=== PATIENT | female | born 1950 | race Caucasian/White ===

== ENCOUNTER 2018-08-21 10:23 | Outpatient (CLI) | payer MEDICARE ==
--- NOTE | 2018-08-21 12:06 | CT ---
CT arteriogram abdomen with and without IV contrast with 3-D imaging CT arteriogram pelvis with and without IV contrast with 3-D imaging HISTORY: Claudication. Vascular disease. Occlusion. FINDINGS: Mild peripheral interstitial lung disease apparent at the bases. Old left rib fractures. Ga llbladder is surgically absent. 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 In the right posterior pelvis, associated with the right adnexa is a well-circumscribed oval fluid density mass measuring up to 4.9 cm x 4.0 cm on the axial images. Visceral arteries of the abdomen are patent. Prominent arterial calcification begins at the lower abd ominal aorta. No evidence of aneurysmal dilatation. A small contrast filled ulceration protrudes into the left side of the mural thrombus at the distal abdominal aorta just below the origin of the i nferior mesenteric artery. Right: Prominent calcification. Flow within the stent is patent.. Complete occlusion of the internal iliac artery. Multifocal stenosis of up to 70% involving the external iliac artery. Long segment high grade stenosis of the external iliac artery. Occlusion of the proximal aspect of the femoral art celia with collateralization via the deep femoral branches. At the level of the distal thigh, the femoral artery has not reconstituted. Left: Prominent calcification with less than 50% stenosis of the common iliac artery. Stent in place. High-grade stenosis along the course of the internal iliac artery. Calcification with less than 50% stenosis of the external iliac and common femoral arteries. Arterial stents along the course of t he proximal femoral artery that is patent. IMPRESSION: Atherosclerosis with small ulceration into the left distal aortic mural thrombus. No evid ence of aneurysmal dilatation. Severe disease of the right iliac/femoral system as detailed above. Right adnexal cyst. Please consider gynecologic evaluation. Incidental-type findings as detailed above.
== END 2018-08-21 10:24 | disposition home or self-care (01) ==
LOC: SCSCT 10:23
PROVIDERS: ATTEND Thoracic Surgery (Cardiothoracic Vascular Surgery)
DX: I65.23 Occlusion and stenosis of bilateral carotid arteries (principal); I74.09 Other arterial embolism and thrombosis of abdominal aorta; I74.5 Embolism and thrombosis of iliac artery; I77.1 Stricture of artery; I70.0 Atherosclerosis of aorta; I74.3 Embolism and thrombosis of arteries of the lower extremities; N83.8 Other noninflammatory disorders of ovary, fallopian tube and broad ligament
CPT/HCPCS: 74174; 82565

== ENCOUNTER 2020-03-13 20:59 | Inpatient (IN) | payer MEDICARE ==
[2020-03-13] MEDS ORDERED: Dexamethasone 10 MG/ML VIAL ONE (21:25)
[2020-03-13 21:41] LABS: Actual Bicarbonate (HCO3a) 26.9 mEq/L (22-28); Base Excess (BEa) 2.8 mEq/L (-2.0 to +3.0); CO2 Tension 39.4 mmHg (35.0-45.0); Calcium, Ionized (arterial) 0.97 mmol/L (1.12-1.30); Hemoglobin (Hb) 13.1 g/dL (12.0-16.0); O2 Tension (PaO2), arterial 61.2 mmHg (> 80.0); Potassium - ABG Lab 2.99 mmol/L (3.70-5.30); pH, Arterial 7.45 (7.35-7.45)
[2020-03-13 21:43] LABS: Puncture Site RRA
[2020-03-13] MEDS ORDERED: Enoxaparin Sodium 30 MG/0.3 ML SYRINGE ONE (22:26)
[2020-03-13] MEDS ORDERED: Guaifenesin DM 100-10/5 ML UDCUP PO PRN (23:28)
[2020-03-13] MEDS ORDERED: Calcium Carbonate 500 MG ChewTAB PO PRN (23:28)
[2020-03-13] MEDS ORDERED: Ondansetron PF 4 MG/2 ML Vial IVP PRN (23:28)
[2020-03-13] MEDS ORDERED: Ondansetron ODT 4 MG TAB PO PRN (23:28)
[2020-03-13] MEDS ORDERED: Acetaminophen 650 MG Suppository PR PRN (23:28)
[2020-03-13] MEDS ORDERED: Dextrose 50% Abboject 50 ML SYRINGE SLOW IVP PRN (23:35)
[2020-03-13] MEDS ORDERED: Dextrose 5% in Water 1,000 ML IV PRN (23:35)
--- NOTE | 2020-03-13 23:36 | PDOC.HHP ---
Hospitalist HPI - History of Present Illness resp distress History of Present Illness: Case of an 70y/o female with a pmhx of cad, DM and htn who comes to hospital due to resp distress. The patient was evaluated at one of our outlying ERs and her oxygen saturation was around 30% sand patient was placed BiPAP. The patient has a chest x-ray which was consistent with Covid and a positive Covid swab. The patient refers was exposed to Covid on the , began having symptoms on . She was recently seen in the ER on March 10 and had a left- sided rib fracture which was unsure if it was new or old but she did have a fall that day. patient complains of myalgias fever chills and cough Hospitalist ROS - Review of Systems All other systems reviewed; all pertinent +/- noted in HPI/Subj Hospitalist History - Past Surgical History Past Surgical History: reports: Cholecystectomy, CABG, Hysterectomy - Family History Family History: reports: no pertinent history - Social History Smoking Status: Current some day smoker Alcohol: reports: None Drugs: reports: none Living Situation: With Family - Exam General Appearance: NAD, awake alert Eye: PERRL, anicteric sclera ENT: normocephalic atraumatic, no oropharyngeal lesions Neck: supple, symmetric, no JVD Heart: RRR, no murmur, no gallops Respiratory: tachypneic Respiratory - other findings: decreased lung sounds Gastrointestinal: soft, non-tender, non-distended Extremities: no cyanosis, no clubbing, no edema Skin: normal turgor, no lesions, no rashes Neurological: cranial nerve grossly intact, normal sensation to touch, no weakness Musculoskeletal: normal tone, normal strength, no muscle wasting Psychiatric: normal affect, normal behavior, A&O x 3 Hospitalist Results - Labs Lab results: ABG pH 7.45 (7.35-7.45) 03/13/20 21:38 ABG pCO2 39.4 mmHg (35.0-45.0) 03/13/20 21:38 ABG pO2 61.2 mmHg (> 80.0) 03/13/20 21:38 Lactic Acid 1.9 mmol/L (0.5-2.2) 03/13/20 22:37 Hospitalist H&P A/P - Problem (1) Acute respiratory failure with hypoxia Code(s): J96.01 - ACUTE RESPIRATORY FAILURE WITH HYPOXIA Status: Acute (2) Pneumonia due to COVID-19 virus Code(s): U07.1 - COVID-19; J12.89 - OTHER VIRAL PNEUMONIA Status: Acute (3) EDIE (acute kidney injury) Code(s): N17.9 - ACUTE KIDNEY FAILURE, UNSPECIFIED Status: Acute (4) CAD (coronary artery disease) Code(s): I25.10 - ATHSCL HEART DISEASE OF [place] CORONARY ARTERY W/O ANG PCTRS Status: Acute (5) Diabetes Code(s): E11.9 - TYPE 2 DIABETES MELLITUS WITHOUT COMPLICATIONS Status: Acute (6) HTN (hypertension) Code(s): I10 - ESSENTIAL (PRIMARY) HYPERTENSION Status: Acute - Plan Plan: Case of an 70y/o female with the stated pmxh who presents with acute resp failure secondary to covid 19 pneumonia covid 19 pneumonia - cxr consistent with covid 19 pneumonia - positive test - will start decadron 6mg ivd - vit c d + zinc - 02 supplementation - dvt prophylaxis resp failure hypoxia - likely secondary to above - initailly on bipap, now on high flow - pulmonology consulted edie - acute on chronic - will start ivfs - f/u renal function and u/o cad / htn - contine home meds dm - acc+ss - long acting insulin
[2020-03-14] MEDS: Sodium Chloride 0.9% 1,000 ML IV SCH (01:36)
[2020-03-14 06:27] LABS: ALT (SGPT) 23 U/L (8-55); AST (SGOT) 42 U/L (5-34); Albumin 2.9 g/dL (3.4-4.8); Alkaline Phosphatase 106 U/L (40-110); Anion Gap 18 mmol/L (10-20); BUN (Urea Nitrogen) 32 mg/dL (9.8-20.1); Bilirubin, Total 0.3 mg/dL (0.2-1.2); Calc. Creatinine Clearance 0 mL/min (70-130); Calcium 7.5 mg/dL (7.8-10.44); Carbon Dioxide 29 mmol/L (23-31); Chloride 95 mmol/L (98-107); Globulin 2.9 g/dL (2.4-3.5); Glucose 437 mg/dL (80-115); Potassium 3.8 mmol/L (3.5-5.1); Protein, Total 5.8 g/dL (6.0-8.3); Sodium 138 mmol/L (136-145)
[2020-03-14 06:40] LABS: Hemoglobin 12.7 g/dL (12.0-16.0); Mean Corpuscular HGB CONC 33.2 g/dL (32.0-36.0); Mean Corpuscular Volume 87.3 fL (78.0-98.0); Mean Platelet Volume 8.6 fL (7.4-10.4); Platelet Count 160 thou/uL (130-400); RBC Distribution Width 14.7 % (11.5-14.5); Red Blood Cell (RBC) Count 4.37 mill/uL (4.20-5.40); White Blood Cell (WBC) Count 3.8 thou/uL (4.8-10.8)
[2020-03-14 06:58] LABS: Band 15 % (5-11); Lymphocytes 17 % (21-51); MDiff Complete? YES; Monocytes 4 % (0-10); Neutrophil 64 % (42-75)
[2020-03-14] MEDS ORDERED: Pregabalin 75 MG CAP PO SCH (09:00)
[2020-03-14] MEDS ORDERED: Zinc Sulfate 220 MG CAP PO SCH (09:00)
[2020-03-14] MEDS ORDERED: Clopidogrel Bisulfate 75 MG TAB ONE (10:03)
[2020-03-14] MEDS ORDERED: Metoprolol Tartrate 25 MG TAB ONE (10:03)
[2020-03-14] MEDS ORDERED: Enoxaparin Sodium 40 MG/0.4 ML SYRINGE ONE (10:03)
[2020-03-14] MEDS ORDERED: Dexamethasone 4 mg/ml Vial ONE (10:03)
[2020-03-14] MEDS: Ascorbic Acid 500 mg Chewable Tablet PO SCH (10:10)
[2020-03-14] MEDS: Cholecalciferol (Vitamin D3) 400 UNITS TAB PO SCH (10:10)
[2020-03-14] MEDS: Metoprolol Tartrate 25 MG TAB PO SCH ×2 (10:11→21:31)
[2020-03-14] MEDS: Simvastatin 20 MG TAB PO SCH (10:11)
[2020-03-14] MEDS: Clopidogrel Bisulfate 75 MG TAB PO SCH (10:11)
[2020-03-14] MEDS ORDERED: metFORMIN 500 MG TAB PO SCH ×2 (10:15→17:00)
[2020-03-14] MEDS: Dexamethasone 4 mg/ml Vial SLOW IVP SCH (10:21)
[2020-03-14] MEDS: Enoxaparin Sodium 40 MG/0.4 ML SYRINGE SC SCH (10:21)
[2020-03-14] MEDS: Insulin Glargine 25 UNITS in Pre-Filled Syringe 1 EACH SC SCH ×2 (11:40→21:32)
[2020-03-14] MEDS ORDERED: HumaLOG 300 UNITS/3 ML VIAL ONE (12:47)
[2020-03-14] MEDS: HumaLOG 300 UNITS/3 ML VIAL SC PRN ×2 (13:17→21:31)
--- NOTE | 2020-03-14 14:56 | PDOC.HOSPP ---
- Subjective Encounter Date: 03/14/20 Encounter Time: 14:00 Subjective: is on high flow O2, responds to verbal stimuli, is poor historian no diarrhea per patient but is on the commode now - Objective Result Diagrams: 03/14/20 05:59 03/14/20 05:59 Additional Labs: Accuchecks 03/14/20 03/14/20 03/13/20 12:44 06:23 23:41 POC Glucose 484 H 368 H 381 H Hospitalist ROS - Medication Medications: Active Medications Generic Name Dose Route Start Last Admin Trade Name Freq PRN Reason Stop Dose Admin Ascorbic Acid 1,000 mg 03/14/20 09:00 03/14/20 10:10 Ascorbic Acid 500 Mg Chewable Tablet PO 1,000 mg DAILY SUKHDEEP Administration Cholecalciferol 400 units 03/14/20 09:00 03/14/20 10:10 Cholecalciferol (Vitamin D3) 400 Units Tab PO 400 units DAILY SUKHDEEP Administration Clopidogrel Bisulfate 75 mg 03/14/20 09:00 03/14/20 10:11 Clopidogrel Bisulfate 75 Mg Tab PO 75 mg DAILY SUKHDEEP Administration Dexamethasone 6 mg 03/14/20 09:00 03/14/20 10:21 Dexamethasone 4 Mg/Ml Vial SLOW IVP 6 mg DAILY SUKHDEEP Administration Enoxaparin Sodium 40 mg 03/14/20 09:00 03/14/20 10:21 Enoxaparin Sodium 40 Mg/0.4 Ml Syringe SC 40 mg 0900 SUKHDEEP Administration Sodium Chloride 1,000 mls @ 70 mls/hr 03/13/20 23:30 03/14/20 01:36 Normal Saline 0.9% IV 1,000 mls .[id number] SUKHDEEP Administration Insulin Glargine 25 units/ 0.25 mls @ 0 mls/hr 03/14/20 09:00 03/14/20 11:40 Miscellaneous Medication SC 0.25 mls BID SUKHDEEP Administration Insulin Human Lispro 0 units 03/13/20 23:35 03/14/20 13:17 Humalog 300 Units/3 Ml Vial SC 10 unit .MODERATE SLIDING SC PRN Administration Moderate Correctional Scale Metoprolol Tartrate 25 mg 03/14/20 09:00 03/14/20 10:11 Metoprolol Tartrate 25 Mg Tab PO 25 mg BID SUKHDEEP Administration Pregabalin 150 mg 03/14/20 09:00 03/14/20 10:12 Pregabalin 75 Mg Cap PO 150 mg BID SUKHDEEP Administration Simvastatin 20 mg 03/14/20 09:00 03/14/20 10:11 Simvastatin 20 Mg Tab PO 20 mg DAILY SUKHDEEP Administration Zinc Sulfate 220 mg 03/14/20 09:00 03/14/20 10:11 Zinc Sulfate 220 Mg Cap PO 220 mg DAILY SUKHDEEP Administration - Exam General Appearance: awake alert, ill appearing Eye: PERRL, anicteric sclera ENT: no oropharyngeal lesions, dry oral mucosa Neck: supple, no JVD Heart: RRR, no murmur Respiratory: no wheezes, rales, rhonchi Gastrointestinal: soft, non-tender, non-distended, normal bowel sounds Extremities: no cyanosis, 1+ LE edema Neurological: cranial nerve grossly intact, no focal deficits Hosp A/P (1) Pneumonia due to COVID-19 virus Code(s): U07.1 - COVID-19; J12.89 - OTHER VIRAL PNEUMONIA Status: Acute (2) Acute respiratory failure with hypoxia Code(s): J96.01 - ACUTE RESPIRATORY FAILURE WITH HYPOXIA Status: Acute (3) EDIE (acute kidney injury) Code(s): N17.9 - ACUTE KIDNEY FAILURE, UNSPECIFIED Status: Acute (4) CAD (coronary artery disease) Code(s): I25.10 - ATHSCL HEART DISEASE OF [place] CORONARY ARTERY W/O ANG PCTRS Status: Chronic Qualifiers: Coronary Disease-Associated Artery/Lesion type: bypass graft [place] vs. transplanted heart: [place] heart Associated angina: without angina Qualified Code(s): I25.810 - Atherosclerosis of coronary artery bypass graft(s) without angina pectoris (5) Diabetes Code(s): E11.9 - TYPE 2 DIABETES MELLITUS WITHOUT COMPLICATIONS Status: Chronic Qualifiers: Diabetes mellitus type: type 2 Diabetes mellitus snf insulin use: without longwall headgate operator use (6) HTN (hypertension) Code(s): I10 - ESSENTIAL (PRIMARY) HYPERTENSION Status: Chronic Qualifiers: Hypertension type: essential hypertension Qualified Code(s): I10 - Essential (primary) hypertension (7) Dehydration Code(s): E86.0 - DEHYDRATION Status: Acute - Plan renal function is getting better, will be a candidate for remdesivir if cleared by either or day 6 of symptom onset/diagnosis, is on dexamethasone, high flow O2 continue plavix, zocor, lopressor, lantus, lyrica and protonix prognosis guarded, full code, lives with her .
[2020-03-14] MEDS ORDERED: NIFEdipine XL 60 MG TAB PO SCH (16:00)
[2020-03-14] MEDS ORDERED: Insulin Glargine 20 UNITS in Pre-Filled Syringe 1 EACH SC SCH (21:00)
[2020-03-15 00:42] LABS: Base Excess (BEa) 3.6 mEq/L (-2.0 to +3.0); CO2 Tension 36.9 mmHg (35.0-45.0); Calcium, Ionized (arterial) 1.07 mmol/L (1.12-1.30); Carboxyhemoglobin (COHb) 0.4 gm% (0.0-3.0); Hemoglobin (Hb) 14.7 g/dL (12.0-16.0); Potassium - ABG Lab 3.02 mmol/L (3.70-5.30); pH, Arterial 7.48 (7.35-7.45)
[2020-03-15 00:44] LABS: ALV-art Gradient 624.175 mmHg (0-20); O2 Tension (PaO2), arterial 42.7 mmHg (> 80.0); Puncture Site LRA
[2020-03-15] MEDS: Acetaminophen 325 MG TAB PO PRN ×2 (03:53→21:27)
[2020-03-15 06:49] LABS: Lactic Acid 1.1 mmol/L (0.5-2.2)
[2020-03-15 06:55] LABS: ALT (SGPT) 22 U/L (8-55); AST (SGOT) 46 U/L (5-34); Albumin 2.9 g/dL (3.4-4.8); Alkaline Phosphatase 111 U/L (40-110); Anion Gap 15 mmol/L (10-20); BUN (Urea Nitrogen) 26 mg/dL (9.8-20.1); Bilirubin, Total 0.4 mg/dL (0.2-1.2); Calc. Creatinine Clearance 60 mL/min (70-130); Calcium 7.8 mg/dL (7.8-10.44); Carbon Dioxide 29 mmol/L (23-31); Chloride 100 mmol/L (98-107); Globulin 2.8 g/dL (2.4-3.5); Glucose 242 mg/dL (80-115); Potassium 3.1 mmol/L (3.5-5.1); Protein, Total 5.7 g/dL (6.0-8.3); Sodium 141 mmol/L (136-145)
[2020-03-15 07:36] LABS: Band 6 % (5-11); Lymphocytes 12 % (21-51); MDiff Complete? YES; Mean Corpuscular HGB CONC 33.1 g/dL (32.0-36.0); Mean Corpuscular Hemoglobin 28.7 pg (27.0-31.0); Mean Corpuscular Volume 86.7 fL (78.0-98.0); Mean Platelet Volume 8.3 fL (7.4-10.4); Neutrophil 82 % (42-75); Platelet Count 238 thou/uL (130-400); RBC Distribution Width 14.9 % (11.5-14.5); Red Blood Cell (RBC) Count 4.89 mill/uL (4.20-5.40); White Blood Cell (WBC) Count 9.3 thou/uL (4.8-10.8)
[2020-03-15] MEDS: Metoprolol Tartrate 25 MG TAB PO SCH ×2 (07:49→20:52)
[2020-03-15] MEDS: Ascorbic Acid 500 mg Chewable Tablet PO SCH (07:49)
[2020-03-15] MEDS: glipiZIDE 5 MG TAB PO SCH ×2 (07:49→16:38)
[2020-03-15] MEDS: Clopidogrel Bisulfate 75 MG TAB PO SCH (07:50)
[2020-03-15] MEDS: Enoxaparin Sodium 40 MG/0.4 ML SYRINGE SC SCH ×2 (07:50→20:52)
[2020-03-15] MEDS: NIFEdipine XL 60 MG TAB PO SCH (07:50)
[2020-03-15] MEDS: Dexamethasone 4 mg/ml Vial SLOW IVP SCH ×2 (07:50→20:52)
[2020-03-15 07:52] LABS: Actual Bicarbonate (HCO3a) 28.7 mEq/L (22-28); Base Excess (BEa) 5.6 mEq/L (-2.0 to +3.0); CO2 Tension 36.9 mmHg (35.0-45.0); Carboxyhemoglobin (COHb) 0.5 gm% (0.0-3.0); Hemoglobin (Hb) 15.9 g/dL (12.0-16.0); Potassium - ABG Lab 3.13 mmol/L (3.70-5.30); pH, Arterial 7.51 (7.35-7.45)
[2020-03-15 07:54] LABS: O2 Tension (PaO2), arterial 55.3 mmHg (> 80.0); Puncture Site RRA
[2020-03-15 07:55] LABS: ALV-art Gradient 611.575 mmHg (0-20)
[2020-03-15] MEDS ORDERED: FLU VACC QS2020-21(65YR UP)/PF 240 MCG/0.7 ML SYRINGE IM ONE (09:00)
[2020-03-15] MEDS: Insulin Glargine 25 UNITS in Pre-Filled Syringe 1 EACH SC SCH ×2 (09:39→20:52)
[2020-03-15] MEDS: Cholecalciferol (Vitamin D3) 400 UNITS TAB PO SCH (09:40)
[2020-03-15] MEDS: Simvastatin 20 MG TAB PO SCH (09:41)
--- NOTE | 2020-03-15 12:45 | CON ---
DATE OF CONSULTATION: HISTORY OF PRESENT ILLNESS: Sandra Colbert is a 70-year-old female, transferred from [place] with respiratory failure secondary to foote positive pneumonia. She is in the ICU, on BiPAP. She has been sick now for a week with shortness of breath and cough and fever. Sputum is relatively clear. She is a tobacco and vape user. No history of drug abuse. No history of alcohol abuse. PAST MEDICAL HISTORY: Otherwise, pertinent for diabetes, hypertension, coronary artery disease, and chronic pain syndrome. PREVIOUS SURGERIES: Cholecystectomy, hysterectomy, and bypass in the past. She was in this hospital in 2014 with peripheral vascular disease, admitted at that time with gastroenteritis and dehydration apparently. HOME MEDICATIONS: Include: 1. Tramadol. 2. Lyrica 200. 3. Hydralazine 25. 4. CQ. 5. Insulin. 6. Toprol-XL 25. 7. Pravastatin 80. 8. Lasix 20. 9. Prozac 20. 10. Aspirin. 11. Plavix. REVIEW OF SYSTEMS: Otherwise, unremarkable. PHYSICAL EXAMINATION: VITAL SIGNS: Saturations are 98% to 99% on 100% BiPAP, low PEEP of 7; pulse 76; temperature is 98; blood pressure 140/71. GENERAL: Awake, responsive. CHEST: No wheezing. No crackles. CARDIAC: Normal S1, S2. No gallops. ABDOMEN: No masses. LABORATORY DATA: PO2 this morning is 55, pCO2 100%, low PEEP of 7. Lytes are normal. Creatinine is normal. Liver function appears to be relatively normal. IMPRESSION: 1. Respiratory failure, foote positive pneumonia, though her CT was not very impressive 2 days ago. 2. Chronic pain syndrome. 3. Coronary artery disease. 4. Fracture, left 6th rib. 5. Bibasilar scarring. PLAN: I will increase Decadron to 6 mg twice a day, Lovenox 40 b.i.d., increase low PEEP to 8, try to sleep on her stomach, prone position. A bag of convalescent plasma, consider remdesivir. 45-minute critical care time. Job ID: [id number]
[2020-03-15] MEDS: HumaLOG 300 UNITS/3 ML VIAL SC PRN (15:37)
[2020-03-15] MEDS ORDERED: Pharmacy to Dose REMDESIVIR IVPB PRN (18:16)
--- NOTE | 2020-03-15 18:21 | PDOC.HOSPP ---
- Subjective Encounter Date: 03/15/20 Encounter Time: 18:00 Subjective: Patient on BiPAP. Patient was seen by pulmonary today. - Objective Vital Signs & Weight: Vital Signs (12 hours) Temp Pulse Resp Pulse Ox 03/15/20 14:44 85 21 H 96 03/15/20 10:28 76 23 H 99 03/15/20 08:00 98.9 F 98 03/15/20 07:50 77 03/15/20 06:59 77 21 H 92 L Weight Admit Weight 159 lb 11.2 oz Weight 159 lb 11.2 oz Most Recent Monitor Data Heart Rate from ECG 98 NIBP 163/81 NIBP BP-Mean 108 Respiration from ECG 27 SpO2 94 I&O: 03/14/20 03/15/20 03/16/20 06:59 06:59 06:59 Intake Total 240 300 Output Total 0 1435 Balance 240 -1135 Result Diagrams: 03/15/20 06:25 03/15/20 06:25 Additional Labs: Accuchecks 03/15/20 03/15/20 03/15/20 15:28 12:03 06:24 POC Glucose 294 H 221 H 233 H 03/14/20 19:46 POC Glucose 339 H Hospitalist ROS - Medication Medications: Active Medications Generic Name Dose Route Start Last Admin Trade Name Freq PRN Reason Stop Dose Admin Acetaminophen 650 mg 03/13/20 23:28 03/15/20 03:53 Acetaminophen 325 Mg Tab PO 650 mg Q4H PRN Administration Headache/Fever/Mild Pain (1-3) Ascorbic Acid 1,000 mg 03/14/20 09:00 03/15/20 07:49 Ascorbic Acid 500 Mg Chewable Tablet PO 1,000 mg DAILY SUKHDEEP Administration Cholecalciferol 400 units 03/14/20 09:00 03/15/20 09:40 Cholecalciferol (Vitamin D3) 400 Units Tab PO Not Given DAILY SUKHDEEP Clopidogrel Bisulfate 75 mg 03/14/20 09:00 03/15/20 07:50 Clopidogrel Bisulfate 75 Mg Tab PO 75 mg DAILY SUKHDEEP Administration Glipizide 5 mg 03/15/20 07:30 03/15/20 16:38 Glipizide 5 Mg Tab PO 5 mg BID-AC SUKHDEEP Administration Insulin Glargine 25 units/ 0.25 mls @ 0 mls/hr 03/14/20 09:00 03/15/20 09:39 Miscellaneous Medication SC 0.25 mls BID SUKHDEEP Administration Insulin Human Lispro 0 units 03/13/20 23:35 03/15/20 15:37 Humalog 300 Units/3 Ml Vial SC 6 unit .MODERATE SLIDING SC PRN Administration Moderate Correctional Scale Metoprolol Tartrate 25 mg 03/14/20 09:00 03/15/20 07:49 Metoprolol Tartrate 25 Mg Tab PO 25 mg BID SUKHDEEP Administration Nifedipine 60 mg 03/15/20 09:00 03/15/20 07:50 Nifedipine Xl 60 Mg Tab PO 60 mg DAILY SUKHDEEP Administration Pantoprazole Sodium 40 mg 03/14/20 21:00 03/14/20 21:31 Pantoprazole 40 Mg Tab PO 40 mg HS SUKHDEEP Administration Simvastatin 20 mg 03/14/20 09:00 03/15/20 09:41 Simvastatin 20 Mg Tab PO Not Given DAILY SUKHDEEP Hosp A/P - Plan (1) Pneumonia due to COVID-19 virus Code(s): U07.1 - COVID-19; J12.89 - OTHER VIRAL PNEUMONIA Status: Acute (2) Acute respiratory failure with hypoxia Code(s): J96.01 - ACUTE RESPIRATORY FAILURE WITH HYPOXIA Status: Acute (3) EDIE (acute kidney injury) Code(s): N17.9 - ACUTE KIDNEY FAILURE, UNSPECIFIED Status: Acute (4) CAD (coronary artery disease) Code(s): I25.10 - ATHSCL HEART DISEASE OF [place] CORONARY ARTERY W/O ANG PCTRS Status: Chronic Qualifiers: Coronary Disease-Associated Artery/Lesion type: bypass graft [place] vs. transplanted heart: [place] heart Associated angina: without angina Qualified Code(s): I25.810 - Atherosclerosis of coronary artery bypass graft(s) without angina pectoris (5) Diabetes Code(s): E11.9 - TYPE 2 DIABETES MELLITUS WITHOUT COMPLICATIONS Status: Chronic Qualifiers: Diabetes mellitus type: type 2 Diabetes mellitus exterminator helper termite insulin use: without fdc use (6) HTN (hypertension) Code(s): I10 - ESSENTIAL (PRIMARY) HYPERTENSION Status: Chronic Qualifiers: Hypertension type: essential hypertension Qualified Code(s): I10 - Essential (primary) hypertension (7) Dehydration Code(s): E86.0 - DEHYDRATION Status: Acute - Plan renal function is getting better, will be a candidate for remdesivir if cleared by either or day 6 of symptom onset/diagnosis, is on dexamethasone, high flow O2 continue plavix, zocor, lopressor, lantus, lyrica and protonix prognosis guarded, full code, lives with her . / patient started on remdesivir patient has been called appears that patient had a mechanical fall on the she was brought into an outside clinic on the for shortness of breath. Initially they thought the shortness of breath was because of the fall possible rib fracture. However her shortness of breath worsened at this time she was brought in on the and at this time she was noted to be hypoxic and was admitted to the hospital. Patient received convale RazorGatort plasma. I will put an order in for pharmacy for remdesivir. we we will continue DVT prophylaxis. Will continue steroids. Her FiO2 currently on BiPAP is 70%. She is maintaining sats around 95%.
--- NOTE | 2020-03-15 21:58 | CON ---
DATE OF CONSULTATION: 03/15/2020 REASON FOR CONSULTATION: COVID with respiratory failure. HISTORY OF PRESENT ILLNESS: A 70-year-old patient whose last hospital admission was in November 2014. She has a history of coronary artery disease and prior bypass graft surgery, hypertension, type 2 diabetes, and she came in basically with diarrhea and presumptive urinary tract infection. I do not have any echocardiogram here from previous visits, but after that she had a CT of abdomen with angiogram on August 2018. It showed mild peripheral and interstitial lung disease at lung bases, some old rib fractures and angiomyolipoma and evidence of atherosclerosis and small ulceration in the left distal aortic mural thrombus. No aneurysmal dilatation. There was evidence of severe disease of the right iliac femoral system. On March 10, 2020, she was brought into the emergency room because of left rib cage pain after a fall. The vital signs were fairly unremarkable. She was afebrile, although she was quite hypoxemic, saturating at 84 on room air and 94 on oxygen. The respiratory exam showed clear breath sounds. The heart examination was described as normal. The CT showed a nondisplaced fracture and then she was discharged home with analgesic medication. On March 13, she comes back, brought by her because of dyspnea. He had been checking her oxygen at home because she was having difficulty breathing and the numbers went down into the 50s, so he brought her to the hospital. When she came in through triage, she was breathing 50 times a minute and O2 saturations were very low described as in the 30s with a decent waveform. She did have some cough and chest pain and some reported fever, but not documented. This time, her BP is 140/70, respiratory rate 38, and she was saturating at 69 on the face mask, 38% on room air, and then she was placed on a CPAP, it went up to 99. She had a chest CT, this was done on March 10. This was when she came in with the chest pain where the rib fracture was diagnosed. She had some basilar atelectasis and scarring, but not much in terms of infiltrates. Initial findings also included a white cell count 3.8, hemoglobin 12.7, platelets 160 with 15% bands and pH 7.45, pCO2 39, PO2 61, creatinine 1.03. AST 46, other liver functions normal. Albumin 2.9. TSH 1.1028. She tested positive for SARS-CoV-2 PCR on March 13 and she had a chest x-ray on March 13 which showed infiltrates in the lung bases, especially in the left lower lobe with an interstitial element to the infiltrates. Upper lobes are relatively clear. Currently, Ms. Colbert is in the ICU with a BiPAP noninvasive ventilatory support. She is awake and has a hard time communicating. The only thing I could get from the review of systems was that she was having some abdominal pain mostly in the infraumbilical regions. She was still dyspneic and had some chest pain around the ribcage region. PAST MEDICAL HISTORY: Coronary artery disease, obesity, type 2 diabetes, hypertension, bypass graft surgery, cholecystectomy, hysterectomy. SOCIAL HISTORY: She still smokes, but trying to quit. She is using a vape. Lives with family. ALLERGIES: NONE. MEDICATIONS: At home, she was taking, 1. Plavix. 2. Tramadol. 3. Cilostazol. 4. Aspirin. 5. Fluoxetine. 6. Pravastatin. 7. Furosemide. 8. Metoprolol. 9. Omeprazole. 10. Coenzyme Q. 11. Hydralazine. 12. Insulin. Here she is receiving, 1. Ascorbic acid. 2. Vitamin D. 3. Plavix. 4. Decadron. 5. Enoxaparin b.i.d. 6. Metoprolol. 7. Ondansetron. 8. Simvastatin. PHYSICAL EXAMINATION: VITAL SIGNS: She has a peripheral IV access and she is voiding with an indwelling Chao catheter. She was -1200 mL for today thus far. BiPAP mask. HEENT: Ocular movements are conjugate. Sclerae white. Oral cavity hard to evaluate. LUNGS: With fairly clear breath sounds. CARDIAC: S1, S2. Regular rate. ABDOMEN: Soft, not distended. Mild tenderness in the lower quadrants and question of bladder distention. It seems like she feels that the bladder is still full. EXTREMITIES: She has no leg pain, but I could not feel any dorsalis pedis either side or popliteal pulses. She has a posterior tibialis pulse on the left side. The extremities are cool to touch and seems to be moving all extremities and she seems to be with it. NEUROLOGIC: A more detailed evaluation of her mental state is not easy to do because of her ventilatory support. LABORATORY DATA: Repeat WBC at 9.3 and platelets 238. Bands are down to 6. ASSESSMENT: 1. Obesity. 2. Type 2 diabetes. 3. Coronary artery disease with bypass graft surgery. 4. Peripheral vascular disease. 5. Chronic smoking. 6. Fall. 7. Gait instability with rib fracture. 8. Hypoxemia, quite severe requiring noninvasive ventilation support. 9. COVID-19 with developing infiltrates. DISCUSSION: The initial CT had very few infiltrates, mostly atelectases, that was on the , so that has been fairly rapid progression of her disease. The duration of the illness is hard to guess, but I would say it is within the first 10 days of illness. In general, patients with high requirements of O2 supplementation beyond simple nasal cannula tend not to benefit from remdesivir in terms of shortening the course of illness, so I am going to stick with just a corticosteroid and ventilatory support for now. I wonder what her cardiac function is. I think in her case the additional rib cage associated pain from the fracture and potentially associated diastolic and systolic dysfunction may be contributing to the hypoxemia, and so she is at risk for further deterioration. Her current MAHDU index for intubation is calculated at 4.85 and she is close to being at requirement for mechanical ventilation. Job ID: [id number] [facility]
[2020-03-16 04:26] LABS: #Lymphocytes 0.9 thou/uL (1.20-3.40); #Monocytes 0.4 thou/uL (0.11-0.59); #Neutrophils 8.7 thou/uL (1.40-6.50); %Basophils 0.1 % (0.0-1.0); %Lymphocytes 8.5 % (21.0-51.0); %Monocytes 4.3 % (0.0-10.0); %Neutrophils 87.1 % (42.0-75.0); Hemoglobin 14.6 g/dL (12.0-16.0); Mean Corpuscular HGB CONC 31.6 g/dL (32.0-36.0); Mean Corpuscular Hemoglobin 27.5 pg (27.0-31.0); Mean Corpuscular Volume 87.2 fL (78.0-98.0); Platelet Count 281 thou/uL (130-400); RBC Distribution Width 15.1 % (11.5-14.5); Red Blood Cell (RBC) Count 5.28 mill/uL (4.20-5.40)
[2020-03-16 04:51] LABS: Anion Gap 16 mmol/L (10-20); BUN (Urea Nitrogen) 21 mg/dL (9.8-20.1); Calc. Creatinine Clearance 69 mL/min (70-130); Calcium 8.3 mg/dL (7.8-10.44); Carbon Dioxide 30 mmol/L (23-31); Chloride 102 mmol/L (98-107); Glucose 189 mg/dL (80-115); Sodium 145 mmol/L (136-145)
[2020-03-16] MEDS: glipiZIDE 5 MG TAB PO SCH ×2 (07:49→15:38)
[2020-03-16] MEDS: Enoxaparin Sodium 40 MG/0.4 ML SYRINGE SC SCH ×2 (08:17→20:47)
[2020-03-16] MEDS: NIFEdipine XL 60 MG TAB PO SCH (08:17)
[2020-03-16] MEDS: Insulin Glargine 25 UNITS in Pre-Filled Syringe 1 EACH SC SCH ×2 (08:17→20:47)
[2020-03-16] MEDS: Clopidogrel Bisulfate 75 MG TAB PO SCH (08:17)
[2020-03-16] MEDS: Dexamethasone 4 mg/ml Vial SLOW IVP SCH ×2 (08:18→20:47)
[2020-03-16] MEDS: Ascorbic Acid 500 mg Chewable Tablet PO SCH (08:19)
[2020-03-16] MEDS: Metoprolol Tartrate 25 MG TAB PO SCH ×2 (08:19→20:47)
[2020-03-16] MEDS: FLUoxetine HCl 20 MG CAP PO SCH (08:20)
[2020-03-16] MEDS: Simvastatin 20 MG TAB PO SCH (09:27)
[2020-03-16] MEDS: Cholecalciferol (Vitamin D3) 400 UNITS TAB PO SCH (09:27)
--- NOTE | 2020-03-16 09:43 | RAD ---
Chest one view HISTORY: Dyspnea. Pneumonia. Follow-up. COMPARISON: 03/13/2020. FINDINGS: Cardiac silhouette is unremarkable. Mediastinum is midline with postoperative changes and a ortic calcification. Pulmonary vasculature upper limits of normal. Widespread reticulonodular interstitial prominence is similar in appearance to the prior study. No lobar consolidation or evidence of pneumothorax. IMPRESSION : Diffuse widespread reticulonodular infiltrate, stable.
--- NOTE | 2020-03-16 10:19 | PRG ---
DATE OF SERVICE: OBJECTIVE: VITAL SIGNS: This morning, patient is still on BiPAP with a temperature of 98, pulse 103, blood pressure 176/85, saturations are 95%. She is on 60% with 12/8. CHEST: No wheezing, no crackles. CARDIAC: Normal S1, S2. ABDOMEN: No masses. LABORATORY DATA: Unremarkable. ASSESSMENT: Respiratory failure, foote positive pneumonia. PLAN: Decrease FiO2 to 50%. If she is stable tomorrow, we may consider high flow. Job ID: [id number]
[2020-03-16] MEDS: HumaLOG 300 UNITS/3 ML VIAL SC PRN ×2 (11:34→16:21)
[2020-03-16] MEDS: hydrALAZINE 20 MG/ML VIAL SLOW IVP PRN (22:31)
[2020-03-16] MEDS: Sodium Chloride 0.9% 1,000 ML IV SCH (23:43)
[2020-03-17] MEDS: Sodium Chloride 0.9% 1,000 ML IV SCH ×2 (00:10→15:00)
[2020-03-17] MEDS: Labetalol HCl 100 MG/20 ML VIAL SLOW IVP PRN ×3 (02:04→22:28)
[2020-03-17 04:20] LABS: #Lymphocytes 0.7 thou/uL (1.20-3.40); #Monocytes 0.6 thou/uL (0.11-0.59); #Neutrophils 8.2 thou/uL (1.40-6.50); %Basophils 0.5 % (0.0-1.0); %Eosinophils 0.1 % (0.0-10.0); %Lymphocytes 7.5 % (21.0-51.0); %Monocytes 6.2 % (0.0-10.0); %Neutrophils 85.7 % (42.0-75.0); Hemoglobin 15.1 g/dL (12.0-16.0); Mean Corpuscular Hemoglobin 27.7 pg (27.0-31.0); Mean Corpuscular Volume 86.8 fL (78.0-98.0); Mean Platelet Volume 7.9 fL (7.4-10.4); Platelet Count 296 thou/uL (130-400); RBC Distribution Width 14.7 % (11.5-14.5); Red Blood Cell (RBC) Count 5.43 mill/uL (4.20-5.40); White Blood Cell (WBC) Count 9.5 thou/uL (4.8-10.8)
[2020-03-17 04:33] LABS: Anion Gap 20 mmol/L (10-20); BUN (Urea Nitrogen) 19 mg/dL (9.8-20.1); Calc. Creatinine Clearance 72 mL/min (70-130); Calcium 8.3 mg/dL (7.8-10.44); Carbon Dioxide 27 mmol/L (23-31); Chloride 101 mmol/L (98-107); Glucose 124 mg/dL (80-115); Sodium 145 mmol/L (136-145)
[2020-03-17 04:35] LABS: Potassium 2.5 mmol/L (3.5-5.1)
[2020-03-17] MEDS ORDERED: Electrolyte Replacement Protocol FS PRN (05:18)
[2020-03-17] MEDS: Potassium Chloride 20 MEQ in Premix Bag 1 BAG IVPB SCH ×4 (05:40→12:43)
[2020-03-17] MEDS: hydrALAZINE 20 MG/ML VIAL SLOW IVP PRN ×3 (05:40→18:22)
--- NOTE | 2020-03-17 07:21 | PDOC.HOSPP ---
- Subjective Encounter Date: 03/16/20 Encounter Time: 11:20 Subjective: pt continues to be on bipap. pt was seen by pulmonary. will not see pt today. - Objective Vital Signs & Weight: Vital Signs (12 hours) Temp Pulse BP Pulse Ox 03/17/20 07:13 100 03/17/20 05:40 87 184/99 H 03/17/20 04:00 98.5 F 03/17/20 03:56 98 03/17/20 02:04 97 189/101 H 03/17/20 00:00 98.4 F 03/16/20 22:31 87 195/100 H Weight Admit Weight 159 lb 11.2 oz Weight 159 lb 11.2 oz Most Recent Monitor Data Heart Rate from ECG 100 NIBP 182/89 NIBP BP-Mean 120 Respiration from ECG 18 SpO2 100 I&O: 03/16/20 03/17/20 03/18/20 06:59 06:59 06:59 Intake Total 660 1660 Output Total 2168 3625 Balance -0829 -163 Result Diagrams: 03/17/20 03:33 03/17/20 03:32 Additional Labs: Accuchecks 03/16/20 03/16/20 20:57 11:16 POC Glucose 123 H 235 H Hospitalist ROS - Review of Systems Other: on bipap - Medication Medications: Active Medications Generic Name Dose Route Start Last Admin Trade Name Freq PRN Reason Stop Dose Admin Acetaminophen 650 mg 03/13/20 23:28 03/15/20 21:27 Acetaminophen 325 Mg Tab PO 650 mg Q4H PRN Administration Headache/Fever/Mild Pain (1-3) Ascorbic Acid 1,000 mg 03/14/20 09:00 03/16/20 08:19 Ascorbic Acid 500 Mg Chewable Tablet PO 1,000 mg DAILY SUKHDEEP Administration Cholecalciferol 400 units 03/14/20 09:00 03/16/20 09:27 Cholecalciferol (Vitamin D3) 400 Units Tab PO 400 units DAILY SUKHDEEP Administration Clopidogrel Bisulfate 75 mg 03/14/20 09:00 03/16/20 08:17 Clopidogrel Bisulfate 75 Mg Tab PO 75 mg DAILY SUKHDEEP Administration Dexamethasone 6 mg 03/15/20 21:00 03/16/20 20:47 Dexamethasone 4 Mg/Ml Vial SLOW IVP 6 mg BID SUKHDEEP Administration Enoxaparin Sodium 40 mg 03/15/20 21:00 03/16/20 20:47 Enoxaparin Sodium 40 Mg/0.4 Ml Syringe SC 40 mg BID SUKHDEEP Administration Fluoxetine HCl 20 mg 03/16/20 09:00 03/16/20 08:20 Fluoxetine Hcl 20 Mg Cap PO 20 mg DAILY SUKHDEEP Administration Glipizide 5 mg 03/15/20 07:30 03/16/20 15:38 Glipizide 5 Mg Tab PO 5 mg BID-AC SUKHDEEP Administration Hydralazine HCl 10 mg 03/14/20 19:30 03/17/20 05:40 Hydralazine 20 Mg/Ml Vial SLOW IVP 10 mg Q4H PRN Administration SBP > 180 and HR < 70 Insulin Glargine 25 units/ 0.25 mls @ 0 mls/hr 03/14/20 09:00 03/16/20 20:47 Miscellaneous Medication SC 0.25 mls BID SUKHDEEP Administration Sodium Chloride 1,000 mls @ 70 mls/hr 03/17/20 02:45 03/17/20 00:10 Normal Saline 0.9% IV 1,000 mls .[id number] SUKHDEEP Administration Potassium Chloride 20 meq/ 100 mls @ 50 mls/hr 03/17/20 05:30 03/17/20 05:40 Device IVPB 03/17/20 13:29 100 mls Q2H SUKHDEEP Administration Insulin Human Lispro 0 units 03/13/20 23:35 03/16/20 16:21 Humalog 300 Units/3 Ml Vial SC 2 unit .MODERATE SLIDING SC PRN Administration Moderate Correctional Scale Labetalol HCl 20 mg 03/14/20 19:30 03/17/20 02:04 Labetalol Hcl 100 Mg/20 Ml Vial SLOW IVP 20 mg Q4H PRN Administration SBP > 180 and HR >/= 70 Metoprolol Tartrate 25 mg 03/14/20 09:00 03/16/20 20:47 Metoprolol Tartrate 25 Mg Tab PO 25 mg BID SUKHDEEP Administration Nifedipine 60 mg 03/15/20 09:00 03/16/20 08:17 Nifedipine Xl 60 Mg Tab PO 60 mg DAILY SUKHDEEP Administration Pantoprazole Sodium 40 mg 03/14/20 21:00 03/16/20 20:47 Pantoprazole 40 Mg Tab PO 40 mg HS SUKHDEEP Administration Simvastatin 20 mg 03/14/20 09:00 03/16/20 09:27 Simvastatin 20 Mg Tab PO 20 mg DAILY SUKHDEEP Administration Hosp A/P - Plan (1) Pneumonia due to COVID-19 virus Code(s): U07.1 - COVID-19; J12.89 - OTHER VIRAL PNEUMONIA Status: Acute (2) Acute respiratory failure with hypoxia Code(s): J96.01 - ACUTE RESPIRATORY FAILURE WITH HYPOXIA Status: Acute (3) EDIE (acute kidney injury) Code(s): N17.9 - ACUTE KIDNEY FAILURE, UNSPECIFIED Status: Acute (4) CAD (coronary artery disease) Code(s): I25.10 - ATHSCL HEART DISEASE OF [place] CORONARY ARTERY W/O ANG PCTRS Status: Chronic Qualifiers: Coronary Disease-Associated Artery/Lesion type: bypass graft [place] vs. transplanted heart: [place] heart Associated angina: without angina Qualified Code(s): I25.810 - Atherosclerosis of coronary artery bypass graft(s) without angina pectoris (5) Diabetes Code(s): E11.9 - TYPE 2 DIABETES MELLITUS WITHOUT COMPLICATIONS Status: C hronic Qualifiers: Diabetes mellitus type: type 2 Diabetes mellitus director long term care insulin use: without detention use (6) HTN (hypertension) Code(s): I10 - ESSENTIAL (PRIMARY) HYPERTENSION Status: Chronic Qualifiers: Hypertension type: essential hypertension Qualified Code(s): I10 - Essential (primary) hypertension (7) Dehydration Code(s): E86.0 - DEHYDRATION Status: Acute - Plan renal function is getting better, will be a candidate for remdesivir if cleared by either or day 6 of symptom onset/diagnosis, is on dexamethasone, high flow O2 continue plavix, zocor, lopressor, lantus, lyrica and protonix prognosis guarded, full code, lives with her . 03/15 patient started on remdesivir patient has been called appears that patient had a mechanical fall on the she was brought into an outside clinic on the for shortness of breath. Initially they thought the shortness of breath was because of the fall possible rib fracture. However her shortness of breath worsened at this time she was brought in on the and at this time she was noted to be hypoxic and was admitted to the hospital. Patient received convalescent plasma. I will put an order in for pharmacy for remdesivir. we we will continue DVT prophylaxis. Will continue steroids. Her FiO2 currently on BiPAP is 70%. She is maintaining sats around 95%. 1/3 pt's oxygen has been reduced to 60% she is doing well on bipap. Per pulmonary pt will be put on high flow in am. will continue steroids. unable to put pt on remdesivir since pt is on bipap.
[2020-03-17] MEDS: glipiZIDE 5 MG TAB PO SCH ×2 (07:39→18:11)
[2020-03-17] MEDS: Dexamethasone 4 mg/ml Vial SLOW IVP SCH ×2 (07:41→21:28)
[2020-03-17] MEDS: Ascorbic Acid 500 mg Chewable Tablet PO SCH (07:42)
[2020-03-17] MEDS: Cholecalciferol (Vitamin D3) 400 UNITS TAB PO SCH (07:42)
[2020-03-17] MEDS: FLUoxetine HCl 20 MG CAP PO SCH (07:42)
[2020-03-17] MEDS: Clopidogrel Bisulfate 75 MG TAB PO SCH (07:42)
[2020-03-17] MEDS: Metoprolol Tartrate 25 MG TAB PO SCH ×2 (07:43→21:28)
[2020-03-17] MEDS: Simvastatin 20 MG TAB PO SCH (07:43)
[2020-03-17] MEDS: NIFEdipine XL 60 MG TAB PO SCH (07:43)
[2020-03-17] MEDS: Enoxaparin Sodium 40 MG/0.4 ML SYRINGE SC SCH ×2 (07:49→21:28)
[2020-03-17] MEDS: Insulin Glargine 25 UNITS in Pre-Filled Syringe 1 EACH SC SCH ×2 (08:56→22:07)
--- NOTE | 2020-03-17 09:11 | RAD ---
PORTABLE CHEST: Date: 03/17/2020 HISTORY: Respiratory distress. COMPARISON: Prior day's exam. FINDINGS: Heart size is within normal limits. There are postop sternotomy change. The reticulonodular lung hackett ges show some slight improvement as compared to the prior exam. IMPRESSION: Slight improvement to the bilateral lung infiltrates. POS: OFF
--- NOTE | 2020-03-17 09:43 | PRG ---
DATE OF SERVICE: SUBJECTIVE: Sandra Colbert remains in the ICU. She is on high-flow, but sats are 98% on 60%. OBJECTIVE: GENERAL: She is not having respiratory distress. VITAL SIGNS: Blood pressure 165/98, pulse , respiratory rate 18. CHEST: No wheezing, no crackles. CARDIAC: Normal S1, S2. No masses felt. LABORATORY DATA: Potassium 2.5. X-ray shows improved bilateral infiltrates. White count 9000. IMPRESSION AND PLAN: 1. Respiratory failure, foote positive pneumonia. 2. Downsize to nasal O2 as tolerated. She is still on high-flow. Empiric antibiotics, steroids. 3. She can probably be transferred later to a monitored bed in the ICU. One-half hour of critical care time. Job ID: [id number]
[2020-03-17] MEDS: HumaLOG 300 UNITS/3 ML VIAL SC PRN ×2 (13:06→18:21)
--- NOTE | 2020-03-17 15:09 | PDOC.HOSPP ---
- Subjective Encounter Date: 03/17/20 Encounter Time: 12:30 Subjective: Patient up in bed on high flow denies any complaints - Objective Vital Signs & Weight: Vital Signs (12 hours) Temp Pulse Resp BP BP Pulse Ox 03/17/20 13:36 168/82 H 03/17/20 13:15 96 187/92 H 03/17/20 12:56 98.2 F 92 20 194/103 H 95 03/17/20 08:16 98 03/17/20 08:00 98.7 F 03/17/20 07:50 87 184/99 H 03/17/20 07:43 87 184/99 H 03/17/20 07:13 100 03/17/20 05:40 87 184/99 H 03/17/20 04:00 98.5 F 03/17/20 03:56 98 Weight Admit Weight 159 lb 11.2 oz Weight 159 lb 11.2 oz Most Recent Monitor Data Heart Rate from ECG 89 NIBP 165/98 NIBP BP-Mean 104 Respiration from ECG 22 SpO2 99 I&O: 03/16/20 03/17/20 03/18/20 06:59 06:59 06:59 Intake Total 660 1660 100 Output Total 2160 4213 0816 [facility]1505 -665 -1175 Result Diagrams: 03/17/20 03:33 03/17/20 03:32 Additional Labs: Accuchecks 03/17/20 03/16/20 03/16/20 12:56 20:57 16:14 POC Glucose 194 H 123 H 172 H 03/14/20 11:21 POC Glucose 457 H Hospitalist ROS - Review of Systems Gastrointestinal: denies: nausea, vomiting, abdominal pain, diarrhea, constipation, melena, hematochezia, other Genitourinary: denies: dysuria, frequency, incontinence, hematuria, retention, other - Medication Medications: Active Medications Generic Name Dose Route Start Last Admin Trade Name Freq PRN Reason Stop Dose Admin Acetaminophen 650 mg 03/13/20 23:28 03/15/20 21:27 Acetaminophen 325 Mg Tab PO 650 mg Q4H PRN Administration Headache/Fever/Mild Pain (1-3) Ascorbic Acid 1,000 mg 03/14/20 09:00 03/17/20 07:42 Ascorbic Acid 500 Mg Chewable Tablet PO Not Given DAILY SUKHDEEP Cholecalciferol 400 units 03/14/20 09:00 03/17/20 07:42 Cholecalciferol (Vitamin D3) 400 Units Tab PO Not Given DAILY [facility] Clopidogrel Bisulfate 75 mg 03/14/20 09:00 03/17/20 07:42 Clopidogrel Bisulfate 75 Mg Tab PO Not Given DAILY [facility] Dexamethasone 6 mg 03/15/20 21:00 03/17/20 07:41 Dexamethasone 4 Mg/Ml Vial SLOW IVP 6 mg BID SUKHDEEP Administration Enoxaparin Sodium 40 mg 03/15/20 21:00 03/17/20 07:49 Enoxaparin Sodium 40 Mg/0.4 Ml Syringe SC 40 mg BID [facility] Administration Fluoxetine HCl 20 mg 03/16/20 09:00 03/17/20 07:42 Fluoxetine Hcl 20 Mg Cap PO Not Given DAILY [facility] Glipizide 5 mg 03/15/20 07:30 03/17/20 07:39 Glipizide 5 Mg Tab PO Not Given BID[facility] Hydralazine HCl 10 mg 03/14/20 19:30 03/17/20 12:44 Hydralazine 20 Mg/Ml Vial SLOW IVP 10 mg Q4H PRN Administration SBP > 180 and HR < 70 Insulin Glargine 25 units/ 0.25 mls @ 0 mls/hr 03/14/20 09:00 03/17/20 08:56 Miscellaneous Medication SC 0.25 mls BID [facility] Administration Sodium Chloride 1,000 mls @ 70 mls/hr 03/17/20 02:45 03/17/20 00:10 Normal Saline 0.9% IV 1,000 mls .[id number] [facility] Administration Insulin Human Lispro 0 units 03/13/20 23:35 03/17/20 13:06 Humalog 300 Units/3 Ml Vial SC 2 unit .MODERATE SLIDING SC PRN Administration Moderate Correctional Scale Labetalol HCl 20 mg 03/14/20 19:30 03/17/20 07:50 Labetalol Hcl 100 Mg/20 Ml Vial SLOW IVP 20 mg Q4H PRN Administration SBP > 180 and HR >/= 70 Metoprolol Tartrate 25 mg 03/14/20 09:00 03/17/20 07:43 Metoprolol Tartrate 25 Mg Tab PO Not Given BID [facility] Nifedipine 60 mg 03/15/20 09:00 03/17/20 07:43 Nifedipine Xl 60 Mg Tab PO Not Given DAILY SUKHDEEP Pantoprazole Sodium 40 mg 03/14/20 21:00 03/16/20 20:47 Pantoprazole 40 Mg Tab PO 40 mg HS SUKHDEEP Administration Simvastatin 20 mg 03/14/20 09:00 03/17/20 07:43 Simvastatin 20 Mg Tab PO Not Given DAILY SUKHDEEP - Exam Heart: negative: RRR, no murmur, no gallops, no rubs, normal peripheral pulses, irregular, diminshed peripheral pulses, murmur present, II/IV, III/IV Respiratory: negative: CTAB, no wheezes, no rales, no ronchi, normal chest expansion, no tachypnea, normal percussion, rales, rhonchi, tachypneic, wheezes Gastrointestinal: soft. negative: non-tender, non-distended, normal bowel sounds, no palpable masses, no hepatomegaly, no splenomegaly, no bruit, no guarding, no rigidity, tender to palpation, distended, diminished bowl sounds, voluntary guarding Extremities: 1+ LE edema Hosp A/P - Plan (1) Pneumonia due to COVID-19 virus Code(s): U07.1 - COVID-19; J12.89 - OTHER VIRAL PNEUMONIA Status: Acute (2) Acute respiratory failure with hypoxia Code(s): J96.01 - ACUTE RESPIRATORY FAILURE WITH HYPOXIA Status: Acute (3) EDIE (acute kidney injury) Code(s): N17.9 - ACUTE KIDNEY FAILURE, UNSPECIFIED Status: Acute (4) CAD (coronary artery disease) Code(s): I25.10 - ATHSCL HEART DISEASE OF [place] CORONARY ARTERY W/O ANG PCTRS Status: Chronic Qualifiers: Coronary Disease-Associated Artery/Lesion type: bypass graft [place] vs. transplanted heart: [place] heart Associated angina: without angina Qualified Code(s): I25.810 - Atherosclerosis of coronary artery bypass graft(s) without angina pectoris (5) Diabetes Code(s): E11.9 - TYPE 2 DIABETES MELLITUS WITHOUT COMPLICATIONS Status: Chronic Qualifiers: Diabetes mellitus type: type 2 Diabetes mellitus dedicated intermodal truck driver insulin use: without dedicated intermodal truck driver use (6) HTN (hypertension) Code(s): I10 - ESSENTIAL (PRIMARY) HYPERTENSION Status: Chronic Qualifiers: Hypertension type: essential hypertension Qualified Code(s): I10 - Essential (primary) hypertension (7) Dehydration Code(s): E86.0 - DEHYDRATION Status: Acute - Plan renal function is getting better, will be a candidate for remdesivir if cleared by either or day 6 of symptom onset/diagnosis, is on dexamethasone, high flow O2 continue plavix, zocor, lopressor, lantus, lyrica and protonix prognosis guarded, full code, lives with her . 03/15 patient started on remdesivir patient has been called appears that patient had a mechanical fall on the she was brought into an outside clinic on the for shortness of breath. Initially they thought the shortness of breath was because of the fall possible rib fracture. However her shortness of breath worsened at this time she was brought in on the and at this time she was noted to be hypoxic and was admitted to the hospital. Patient received convalescent plasma. I will put an order in for pharmacy for remdesivir. we we will continue DVT prophylaxis. Will continue steroids. Her FiO2 currently on BiPAP is 70%. She is maintaining sats around 95%. 03/16 pt's oxygen has been reduced to 60% she is doing well on bipap. Per pulmonary pt will be put on high flow in am. will continue steroids. unable to put pt on remdesivir since pt is on bipap. 03/17 patient downgraded from BiPAP to high flow doing well so far. We will continue to monitor. She is not a candidate for remdesivir since she is on high flow. We will continue steroids DVT prophylaxis. Speech has been evaluated to see her. We will replace potassium. Continue IV fluids for now
[2020-03-17] MEDS: Acetaminophen 325 MG TAB PO PRN ×2 (18:11→22:28)
[2020-03-17] MEDS: Doxycycline 100 MG CAP PO SCH (21:28)
[2020-03-18] MEDS: Acetaminophen 325 MG TAB PO PRN ×3 (03:46→13:36)
[2020-03-18] MEDS: Labetalol HCl 100 MG/20 ML VIAL SLOW IVP PRN ×4 (03:47→23:40)
[2020-03-18] MEDS: Sodium Chloride 0.9% 1,000 ML IV SCH ×2 (03:47→18:39)
[2020-03-18 05:20] LABS: Anion Gap 17 mmol/L (10-20); BUN (Urea Nitrogen) 24 mg/dL (9.8-20.1); Calc. Creatinine Clearance 64 mL/min (70-130); Calcium 8.3 mg/dL (7.8-10.44); Carbon Dioxide 23 mmol/L (23-31); Chloride 107 mmol/L (98-107); Glucose 248 mg/dL (80-115); Potassium 3.1 mmol/L (3.5-5.1); Sodium 144 mmol/L (136-145)
[2020-03-18 05:33] LABS: Band 8 % (5-11); Hemoglobin 15.3 g/dL (12.0-16.0); Lymphocytes 2 % (21-51); MDiff Complete? YES; Mean Corpuscular HGB CONC 31.5 g/dL (32.0-36.0); Mean Corpuscular Hemoglobin 27.5 pg (27.0-31.0); Mean Corpuscular Volume 87.3 fL (78.0-98.0); Mean Platelet Volume 8.2 fL (7.4-10.4); Monocytes 2 % (0-10); Neutrophil 86 % (42-75); Platelet Count 283 thou/uL (130-400); Reactive Lymphocytes 2 % (0-10); Red Blood Cell (RBC) Count 5.56 mill/uL (4.20-5.40); White Blood Cell (WBC) Count 7.8 thou/uL (4.8-10.8)
[2020-03-18] MEDS: HumaLOG 300 UNITS/3 ML VIAL SC PRN ×3 (05:39→17:06)
[2020-03-18] MEDS ORDERED: Potassium Chloride 20 MEQ TAB PO SCH (05:45)
[2020-03-18] MEDS ORDERED: Magnesium 2 GM/50 ML 2 GM in Premix Bag 1 BAG IVPB SCH (05:45)
[2020-03-18] MEDS ORDERED: Potassium Bicarbonate/Cit Ac 20 MEQ TAB PO SCH (07:30)
[2020-03-18] MEDS: Enoxaparin Sodium 40 MG/0.4 ML SYRINGE SC SCH ×2 (09:22→23:15)
[2020-03-18] MEDS: Cholecalciferol (Vitamin D3) 400 UNITS TAB PO SCH (09:23)
[2020-03-18] MEDS: Simvastatin 20 MG TAB PO SCH (09:23)
[2020-03-18] MEDS: NIFEdipine XL 60 MG TAB PO SCH (09:24)
[2020-03-18] MEDS: glipiZIDE 5 MG TAB PO SCH ×2 (09:25→17:09)
[2020-03-18] MEDS: Ascorbic Acid 500 mg Chewable Tablet PO SCH (09:25)
[2020-03-18] MEDS: Doxycycline 100 MG CAP PO SCH ×2 (09:25→23:15)
[2020-03-18] MEDS: Dexamethasone 4 mg/ml Vial SLOW IVP SCH ×2 (09:26→23:15)
[2020-03-18] MEDS: Metoprolol Tartrate 25 MG TAB PO SCH ×2 (09:26→23:15)
[2020-03-18] MEDS: FLUoxetine HCl 20 MG CAP PO SCH (09:26)
[2020-03-18] MEDS: Clopidogrel Bisulfate 75 MG TAB PO SCH (09:26)
[2020-03-18] MEDS: Insulin Glargine 30 UNITS in Pre-Filled Syringe 1 EACH SC SCH ×2 (09:48→23:38)
[2020-03-18] MEDS: hydrALAZINE 20 MG/ML VIAL SLOW IVP PRN (13:36)
--- NOTE | 2020-03-18 16:46 | PRG ---
DATE OF SERVICE: 03/18/2020 SUBJECTIVE: This morning, the patient still on high-flow. OBJECTIVE: GENERAL: No distress. VITAL SIGNS: Temperature 98, pulse 84, respirations 24, saturations are 94%, blood pressure 160/94. CHEST: No wheezing. No crackles. CARDIAC: Normal S1, S2. No gallops. ABDOMEN: No masses. LABORATORY DATA: White count 7000. Lytes are normal. Glucose 332. X-ray appears to be stable haziness. ASSESSMENT AND PLAN: Respiratory failure, foote positive pneumonia. Decadron, empiric antibiotics, supportive care. She was told to sleep on her stomach, prone position as long as she can. Aggressive PT. Job ID: [id number]
--- NOTE | 2020-03-18 16:47 | PDOC.HOSPP ---
- Subjective Encounter Date: 03/18/20 Encounter Time: 12:30 Subjective: Patient up in bed no complaints. - Objective Vital Signs & Weight: Vital Signs (12 hours) Temp Pulse Resp BP Pulse Ox 03/18/20 15:41 98.2 F 84 24 H 196/94 H 94 L 03/18/20 14:40 165/84 H 03/18/20 13:36 77 03/18/20 13:30 192/91 H 03/18/20 12:00 98.3 F 77 20 206/99 H 99 03/18/20 09:35 95 03/18/20 09:24 87 03/18/20 08:00 98.2 F 87 20 199/99 H 87 L 03/18/20 06:04 187/90 H Weight Admit Weight 159 lb 11.2 oz Weight 159 lb 11.2 oz Most Recent Monitor Data Heart Rate from ECG 89 NIBP 165/98 NIBP BP-Mean 104 Respiration from ECG 22 SpO2 99 I&O: 03/17/20 03/18/20 03/19/20 06:59 06:59 06:59 Intake Total 1660 1561 180 Output Total 2325 2775 Balance -141 -5901 180 Result Diagrams: 03/18/20 04:22 03/18/20 04:22 Additional Labs: Accuchecks 03/18/20 03/18/20 03/18/20 15:48 10:47 05:46 POC Glucose 332 H 220 H 258 H 03/17/20 03/17/20 21:43 18:13 POC Glucose 228 H 196 H Hospitalist ROS - Review of Systems Gastrointestinal: denies: nausea, vomiting, abdominal pain, diarrhea, constipation, melena, hematochezia, other Genitourinary: denies: dysuria, frequency, incontinence, hematuria, retention, other Musculoskeletal: denies: neck pain, shoulder pain, arm pain, back pain, hand pain, leg pain, foot pain, other - Medication Medications: Active Medications Generic Name Dose Route Start Last Admin Trade Name Freq PRN Reason Stop Dose Admin Acetaminophen 650 mg 03/13/20 23:28 03/18/20 13:36 Acetaminophen 325 Mg Tab PO 650 mg Q4H PRN Administration Headache/Fever/Mild Pain (1-3) Ascorbic Acid 1,000 mg 03/14/20 09:00 03/18/20 09:25 Ascorbic Acid 500 Mg Chewable Tablet PO 1,000 mg DAILY SUKHDEEP Administration Cholecalciferol 400 units 03/14/20 09:00 03/18/20 09:23 Cholecalciferol (Vitamin D3) 400 Units Tab PO 400 units DAILY SUKHDEEP Administration Clopidogrel Bisulfate 75 mg 03/14/20 09:00 03/18/20 09:26 Clopidogrel Bisulfate 75 Mg Tab PO 75 mg DAILY SUKHDEEP Administration Dexamethasone 6 mg 03/15/20 21:00 03/18/20 09:26 Dexamethasone 4 Mg/Ml Vial SLOW IVP 6 mg BID SUKHDEEP Administration Doxycycline Hyclate 100 mg 03/17/20 21:00 03/18/20 09:25 Doxycycline 100 Mg Cap PO 03/27/20 21:01 100 mg BID SUKHDEEP Administration Enoxaparin Sodium 40 mg 03/15/20 21:00 03/18/20 09:22 Enoxaparin Sodium 40 Mg/0.4 Ml Syringe SC 40 mg BID SUKHDEEP Administration Fluoxetine HCl 20 mg 03/16/20 09:00 03/18/20 09:26 Fluoxetine Hcl 20 Mg Cap PO 20 mg DAILY SUKHDEEP Administration Glipizide 5 mg 03/15/20 07:30 03/18/20 09:25 Glipizide 5 Mg Tab PO 5 mg BID-AC SUKHDEEP Administration Hydralazine HCl 10 mg 03/14/20 19:30 03/18/20 13:36 Hydralazine 20 Mg/Ml Vial SLOW IVP 10 mg Q4H PRN Administration SBP > 180 and HR < 70 Sodium Chloride 1,000 mls @ 70 mls/hr 03/17/20 02:45 03/18/20 03:47 Normal Saline 0.9% IV 1,000 mls .[id number] SUKHDEEP Administration Insulin Glargine 30 units/ 0.3 mls @ 0 mls/hr 03/18/20 09:00 03/18/20 09:48 Miscellaneous Medication SC 0.3 mls QAM SUKHDEEP Administration Insulin Human Lispro 0 units 03/13/20 23:35 03/18/20 12:00 Humalog 300 Units/3 Ml Vial SC 4 unit .MODERATE SLIDING SC PRN Administration Moderate Correctional Scale Labetalol HCl 20 mg 03/14/20 19:30 03/18/20 12:00 Labetalol Hcl 100 Mg/20 Ml Vial SLOW IVP 20 mg Q4H PRN Administration SBP > 180 and HR >/= 70 Metoprolol Tartrate 25 mg 03/14/20 09:00 03/18/20 09:26 Metoprolol Tartrate 25 Mg Tab PO 25 mg BID SUKHDEEP Administration Nifedipine 60 mg 03/15/20 09:00 03/18/20 09:24 Nifedipine Xl 60 Mg Tab PO 60 mg DAILY SUKHDEEP Administration Pantoprazole Sodium 40 mg 03/14/20 21:00 03/17/20 21:28 Pantoprazole 40 Mg Tab PO 40 mg HS SUKHDEEP Administration Simvastatin 20 mg 03/14/20 09:00 03/18/20 09:23 Simvastatin 20 Mg Tab PO 20 mg DAILY SUKHDEEP Administration - Exam Neck: negative: supple, symmetric, no JVD, no thyromegaly, no lymphadenopathy, no carotid bruit, JVD Heart: negative: RRR, no murmur, no gallops, no rubs, normal peripheral pulses, irregular, diminshed peripheral pulses, murmur present, II/IV, III/IV Respiratory: negative: CTAB, no wheezes, no rales, no ronchi, normal chest expansion, no tachypnea, normal percussion, rales, rhonchi, tachypneic, wheezes Gastrointestinal: negative: soft, non-tender, non-distended, normal bowel sounds, no palpable masses, no hepatomegaly, no splenomegaly, no bruit, no guarding, no rigidity, tender to palpation, distended, diminished bowl sounds, voluntary guarding Hosp A/P - Plan (1) Pneumonia due to COVID-19 virus Code(s): U07.1 - COVID-19; J12.89 - OTHER VIRAL PNEUMONIA Status: Acute (2) Acute respiratory failure with hypoxia Code(s): J96.01 - ACUTE RESPIRATORY FAILURE WITH HYPOXIA Status: Acute (3) EDIE (acute kidney injury) Code(s): N17.9 - ACUTE KIDNEY FAILURE, UNSPECIFIED Status: Acute (4) CAD (coronary artery disease) Code(s): I25.10 - ATHSCL HEART DISEASE OF [place] CORONARY ARTERY W/O ANG PCTRS Status: Chronic Qualifiers: Coronary Disease-Associated Artery/Lesion type: bypass graft [place] vs. transplanted heart: [place] heart Associated angina: without angina Qualified Code(s): I25.810 - Atherosclerosis of coronary artery bypass graft(s) without angina pectoris (5) Diabetes Code(s): E11.9 - TYPE 2 DIABETES MELLITUS WITHOUT COMPLICATIONS Status: Chronic Qualifiers: Diabetes mellitus type: type 2 Diabetes mellitus termite exterminator helper insulin use: without custodial use (6) HTN (hypertension) Code(s): I10 - ESSENTIAL (PRIMARY) HYPERTENSION Status: Chronic Qualifiers: Hypertension type: essential hypertension Qualified Code(s): I10 - Essential (primary) hypertension (7) Dehydration Code(s): E86.0 - DEHYDRATION Status: Acute - Plan renal function is getting better, will be a candidate for remdesivir if cleared by either or day 6 of symptom onset/diagnosis, is on dexamethasone, high flow O2 continue plavix, zocor, lopressor, lantus, lyrica and protonix prognosis guarded, full code, lives with her . 03/15 patient started on remdesivir patient has been called appears that patient had a mechanical fall on the she was brought into an outside clinic on the for shortness of breath. Initially they thought the shortness of breath was because of the fall possible rib fracture. However her shortness of breath worsened at this time she was brought in on the and at this time she was noted to be hypoxic and was admitted to the hospital. Patient received convale [place] plasma. I will put an order in for pharmacy for remdesivir. we we will continue DVT prophylaxis. Will continue steroids. Her FiO2 currently on BiPAP is 70%. She is maintaining sats around 95%. 03/16 pt's oxygen has been reduced to 60% she is doing well on bipap. Per pulmonary pt will be put on high flow in am. will continue steroids. unable to put pt on remdesivir since pt is on bipap. 03/17 patient downgraded from BiPAP to high flow doing well so far. We will continue to monitor. She is not a candidate for remdesivir since she is on high flow. We will continue steroids DVT prophylaxis. Speech has been evaluated to see her. We will replace potassium. Continue IV fluids for now 03/18 patient continues to be on high flow. She is not eating very much. I encouraged her to eat. Continues to be on DVT prophylaxis. We will replace electrolytes.
[2020-03-18] MEDS: traMADol HCl 50 MG TAB PO PRN (17:09)
[2020-03-18 17:31] LABS: Potassium 4.5 mmol/L (3.5-5.1)
[2020-03-19] MEDS: traMADol HCl 50 MG TAB PO PRN (02:08)
[2020-03-19 05:24] LABS: Anion Gap 17 mmol/L (10-20); BUN (Urea Nitrogen) 23 mg/dL (9.8-20.1); Calc. Creatinine Clearance 60 mL/min (70-130); Calcium 8.6 mg/dL (7.8-10.44); Carbon Dioxide 24 mmol/L (23-31); Chloride 111 mmol/L (98-107); Glucose 237 mg/dL (80-115); Magnesium 2.2 mg/dL (1.6-2.6); Potassium 3.1 mmol/L (3.5-5.1); Sodium 149 mmol/L (136-145)
[2020-03-19] MEDS: HumaLOG 300 UNITS/3 ML VIAL SC PRN ×3 (05:41→16:44)
[2020-03-19] MEDS: hydrALAZINE 20 MG/ML VIAL SLOW IVP PRN (05:48)
[2020-03-19 06:42] LABS: Hemoglobin 15.9 g/dL (12.0-16.0); Mean Corpuscular HGB CONC 31.8 g/dL (32.0-36.0); Mean Corpuscular Hemoglobin 27.9 pg (27.0-31.0); Mean Corpuscular Volume 87.7 fL (78.0-98.0); Platelet Count 321 thou/uL (130-400); RBC Distribution Width 14.9 % (11.5-14.5); Red Blood Cell (RBC) Count 5.72 mill/uL (4.20-5.40); White Blood Cell (WBC) Count 11.8 thou/uL (4.8-10.8)
[2020-03-19 06:44] LABS: Band 12 % (5-11); Lymphocytes 6 % (21-51); MDiff Complete? YES; Neutrophil 81 % (42-75); Reactive Lymphocytes 1 % (0-10)
[2020-03-19] MEDS ORDERED: Potassium Chloride 20 MEQ TAB PO SCH (07:00)
[2020-03-19] MEDS: Clopidogrel Bisulfate 75 MG TAB PO SCH (08:31)
[2020-03-19] MEDS: Cholecalciferol (Vitamin D3) 400 UNITS TAB PO SCH (08:31)
[2020-03-19] MEDS: Enoxaparin Sodium 40 MG/0.4 ML SYRINGE SC SCH ×2 (08:31→20:33)
[2020-03-19] MEDS: NIFEdipine XL 60 MG TAB PO SCH (08:31)
[2020-03-19] MEDS: Ascorbic Acid 500 mg Chewable Tablet PO SCH (08:32)
[2020-03-19] MEDS: Doxycycline 100 MG CAP PO SCH ×2 (08:32→20:35)
[2020-03-19] MEDS: Metoprolol Tartrate 25 MG TAB PO SCH ×4 (08:32→19:54)
[2020-03-19] MEDS: glipiZIDE 5 MG TAB PO SCH ×2 (08:32→16:40)
[2020-03-19] MEDS: FLUoxetine HCl 20 MG CAP PO SCH (08:32)
[2020-03-19] MEDS: Simvastatin 20 MG TAB PO SCH (08:33)
[2020-03-19] MEDS: Dexamethasone 4 mg/ml Vial SLOW IVP SCH ×2 (08:33→20:39)
[2020-03-19] MEDS: Acetaminophen 325 MG TAB PO PRN ×2 (09:50→20:34)
[2020-03-19] MEDS: Insulin Glargine 30 UNITS in Pre-Filled Syringe 1 EACH SC SCH ×2 (09:51→20:35)
[2020-03-19] MEDS: Sodium Chloride 0.9% 1,000 ML IV SCH (10:13)
--- NOTE | 2020-03-19 13:18 | PRG ---
DATE OF SERVICE: 03/19/2020 OBJECTIVE: VITAL SIGNS: This morning, temperature 97, pulse 80, respirations 20, sats are 100% on high flow rate of 40, 65%. Blood pressure is elevated at 206/94. CHEST: No wheezing. No crackles. CARDIAC: Normal S1 and S2. No gallops. LABORATORY DATA: Unremarkable except for potassium being low. ASSESSMENT AND PLAN: [place] positive pneumonia, hypertension. Trying to dial the FiO2 down high-flow, eventually switch over to nasal O2 if possible. Continue steroids, empiric antibiotics. Stable x-ray findings. We are going to restart home blood pressure medicine. Job ID: [id number]
[2020-03-19] MEDS: hydrALAZINE 25 MG TAB PO SCH ×2 (16:40→20:36)
--- NOTE | 2020-03-19 17:58 | PDOC.HOSPP ---
- Subjective Encounter Date: 03/19/20 Encounter Time: 12:30 Subjective: Patient up in bed still on high flow. She is not eating very much. - Objective Vital Signs & Weight: Vital Signs (12 hours) Temp Pulse Pulse Resp BP BP Pulse Ox 03/19/20 16:29 97.5 F L 86 20 213/100 H 94 L 03/19/20 11:55 97.4 F L 86 20 206/94 H 100 03/19/20 11:29 88 177/106 H 03/19/20 08:00 97.6 F 82 20 219/97 H 96 Pulse Ox 03/19/20 16:29 03/19/20 11:55 03/19/20 11:29 93 L 03/19/20 08:00 Weight Admit Weight 159 lb 11.2 oz Weight 159 lb 11.2 oz Most Recent Monitor Data Heart Rate from ECG 89 NIBP 165/98 NIBP BP-Mean 104 Respiration from ECG 22 SpO2 99 I&O: 03/18/20 03/19/20 03/20/20 06:59 06:59 06:59 Intake Total 1561 2352 Output Total 2775 2550 Balance -1214 -198 Result Diagrams: 03/19/20 04:30 03/19/20 04:30 Additional Labs: Accuchecks 03/19/20 03/19/20 03/19/20 16:41 10:53 05:25 POC Glucose 399 H 179 H 230 H 03/18/20 23:22 POC Glucose 310 H Hospitalist ROS - Review of Systems Respiratory: reports: shortness of breath Cardiovascular: denies: chest pain, palpitations, orthopnea, paroxysmal noc. dyspnea, edema, light headedness, other Gastrointestinal: denies: nausea, vomiting, abdominal pain, diarrhea, constipation, melena, hematochezia, other - Medication Medications: Active Medications Generic Name Dose Route Start Last Admin Trade Name Freq PRN Reason Stop Dose Admin Acetaminophen 650 mg 03/13/20 23:28 03/19/20 09:50 Acetaminophen 325 Mg Tab PO 650 mg Q4H PRN Administration Headache/Fever/Mild Pain (1-3) Ascorbic Acid 1,000 mg 03/14/20 09:00 03/19/20 08:32 Ascorbic Acid 500 Mg Chewable Tablet PO 1,000 mg DAILY SUKHDEEP Administration Cholecalciferol 400 units 03/14/20 09:00 03/19/20 08:31 Cholecalciferol (Vitamin D3) 400 Units Tab PO 400 units DAILY SUKHDEEP Administration Clopidogrel Bisulfate 75 mg 03/14/20 09:00 03/19/20 08:31 Clopidogrel Bisulfate 75 Mg Tab PO 75 mg DAILY SUKHDEEP Administration Dexamethasone 6 mg 03/15/20 21:00 03/19/20 08:33 Dexamethasone 4 Mg/Ml Vial SLOW IVP 6 mg BID SUKHDEEP Administration Doxycycline Hyclate 100 mg 03/17/20 21:00 03/19/20 08:32 Doxycycline 100 Mg Cap PO 03/27/20 21:01 100 mg BID SUKHDEEP Administration Enoxaparin Sodium 40 mg 03/15/20 21:00 03/19/20 08:31 Enoxaparin Sodium 40 Mg/0.4 Ml Syringe SC 40 mg BID SUKHDEEP Administration Fluoxetine HCl 20 mg 03/16/20 09:00 03/19/20 08:32 Fluoxetine Hcl 20 Mg Cap PO 20 mg DAILY SUKHDEEP Administration Glipizide 5 mg 03/15/20 07:30 03/19/20 16:40 Glipizide 5 Mg Tab PO 5 mg BID-AC SUKHDEEP Administration Hydralazine HCl 10 mg 03/14/20 19:30 03/19/20 05:48 Hydralazine 20 Mg/Ml Vial SLOW IVP 10 mg Q4H PRN Administration SBP > 180 and HR < 70 Hydralazine HCl 25 mg 03/19/20 15:00 03/19/20 16:40 Hydralazine 25 Mg Tab PO 25 mg TID SUKHDEEP Administration Sodium Chloride 1,000 mls @ 70 mls/hr 03/17/20 02:45 03/19/20 10:13 Normal Saline 0.9% IV 1,000 mls .[id number] SUKHDEEP Administration Insulin Glargine 30 units/ 0.3 mls @ 0 mls/hr 03/18/20 21:00 03/18/20 23:38 Miscellaneous Medication SC 0.3 mls HS SUKHDEEP Administration Insulin Glargine 30 units/ 0.3 mls @ 0 mls/hr 03/18/20 09:00 03/19/20 09:51 Miscellaneous Medication SC 0.3 mls QAM SUKHDEEP Administration Insulin Human Lispro 0 units 03/13/20 23:35 01/06/21 16:44 Humalog 300 Units/3 Ml Vial SC 10 unit .MODERATE SLIDING SC PRN Administration Moderate Correctional Scale Labetalol HCl 20 mg 03/14/20 19:30 03/18/20 23:40 Labetalol Hcl 100 Mg/20 Ml Vial SLOW IVP 20 mg Q4H PRN Administration SBP > 180 and HR >/= 70 Metoprolol Tartrate 25 mg 03/14/20 09:00 03/19/20 08:32 Metoprolol Tartrate 25 Mg Tab PO 25 mg BID SUKHDEEP Administration Nifedipine 60 mg 03/15/20 09:00 03/19/20 08:31 Nifedipine Xl 60 Mg Tab PO 60 mg DAILY SUKHDEEP Administration Pantoprazole Sodium 40 mg 03/14/20 21:00 03/18/20 23:15 Pantoprazole 40 Mg Tab PO 40 mg HS SUKHDEEP Administration Simvastatin 20 mg 03/14/20 09:00 03/19/20 08:33 Simvastatin 20 Mg Tab PO 20 mg DAILY SUKHDEEP Administration Sodium Chloride 10 ml 03/19/20 09:00 03/19/20 08:33 Flush - Normal Saline 10 Ml Syringe IVF 10 ml Q12HR SUKHDEEP Administration Tramadol HCl 50 mg 03/18/20 14:52 03/19/20 02:08 Tramadol Hcl 50 Mg Tab PO 50 mg Q6H PRN Administration Mild Pain (1-3) - Exam Heart: negative: RRR, no murmur, no gallops, no rubs, normal peripheral pulses, irregular, diminshed peripheral pulses, murmur present, II/IV, III/IV Respiratory: negative: CTAB, no wheezes, no rales, no ronchi, normal chest expansion, no tachypnea, normal percussion, rales, rhonchi, tachypneic, wheezes Gastrointestinal: negative: soft, non-tender, non-distended, normal bowel sounds, no palpable masses, no hepatomegaly, no splenomegaly, no bruit, no guarding, no rigidity, tender to palpation, distended, diminished bowl sounds, voluntary guarding Hosp A/P - Plan (1) Pneumonia due to COVID-19 virus Code(s): U07.1 - COVID-19; J12.89 - OTHER VIRAL PNEUMONIA Status: Acute (2) Acute respiratory failure with hypoxia Code(s): J96.01 - ACUTE RESPIRATORY FAILURE WITH HYPOXIA Status: Acute (3) EDIE (acute kidney injury) Code(s): N17.9 - ACUTE KIDNEY FAILURE, UNSPECIFIED Status: Acute (4) CAD (coronary artery disease) Code(s): I25.10 - ATHSCL HEART DISEASE OF [place] CORONARY ARTERY W/O ANG PCTRS Status: Chronic Qualifiers: Coronary Disease-Associated Artery/Lesion type: bypass graft [place] vs. transplanted heart: [place] heart Associated angina: without angina Qualified Code(s): I25.810 - Atherosclerosis of coronary artery bypass graft(s) without angina pectoris (5) Diabetes Code(s): E11.9 - TYPE 2 DIABETES MELLITUS WITHOUT COMPLICATIONS Status: Chronic Qualifiers: Diabetes mellitus type: type 2 Diabetes mellitus termite treater helper insulin use: without termite treater helper use (6) HTN (hypertension) Code(s): I10 - ESSENTIAL (PRIMARY) HYPERTENSION Status: Chronic Qualifiers: Hypertension type: essential hypertension Qualified Code(s): I10 - Essential (primary) hypertension (7) Dehydration Code(s): E86.0 - DEHYDRATION Status: Acute - Plan renal function is getting better, will be a candidate for remdesivir if cleared by either or day 6 of symptom onset/diagnosis, is on dexamethasone, high flow O2 continue plavix, zocor, lopressor, lantus, lyrica and protonix prognosis guarded, full code, lives with her . 03/15 patient started on remdesivir patient has been called appears that patient had a mechanical fall on the she was brought into an outside clinic on the for shortness of breath. Initially they thought the shortness of breath was because of the fall possible rib fracture. However her shortness of breath worsened at this time she was brought in on the and at this time she was noted to be hypoxic and was admitted to the hospital. Patient received convalescent plasma. I will put an order in for pharmacy for remdesivir. we we will continue DVT prophylaxis. Will continue steroids. Her FiO2 currently on BiPAP is 70%. She is maintaining sats around 95%. 03/16 pt's oxygen has been reduced to 60% she is doing well on bipap. Per pulmonary pt will be put on high flow in am. will continue steroids. unable to put pt on remdesivir since pt is on bipap. 1/4 patient downgraded from BiPAP to high flow doing well so far. We will continue to monitor. She is not a candidate for remdesivir since she is on high flow. We will continue steroids DVT prophylaxis. Speech has been evaluated to see her. We will replace potassium. Continue IV fluids for now 03/18 patient continues to be on high flow. She is not eating very much. I encouraged her to eat. Continues to be on DVT prophylaxis. We will replace electrolytes. 03/19 patient continues to be on high flow. She is again not eating very much and has significant dysphagia and has been coughing even on thickened liquids. We will start patient on PPN.
--- NOTE | 2020-03-19 18:18 | PRG ---
DATE OF SERVICE: 03/19/2020 SUBJECTIVE: Ms. Colbert is in the Neuro Unit. When I arrived in the room, she kept repeating that she wanted Sprite over and over again. When I ask her specific questions about orientation, she actually got everything right, very quickly gave me the date, so I guess she was legitimately asking for a drink. She denies any headaches. She has some abdominal pain. OBJECTIVE: VITAL SIGNS: She is still on high-flow nasal cannula O2. She was on 60, now she is at 40, but was saturating anywhere from 94 to 96. When I went in the room, she was at 91, BP is 200/100, pulse of 86, and the respirations of 20. GENERAL: She was kind of had a grimace in her face and the mouth was dry. No teeth. She has dentures, but not wearing them at the moment. LUNGS: Symmetric air entry. HEART: S1, S2 regular rate. ABDOMEN: Soft. EXTREMITIES: She is able to move all 4 extremities. Appears to be somewhat weak. LABORATORY DATA: White cell count is 11.8, hemoglobin 15.9, platelets 321 with 12% bands. Her creatinine is 1.03. She is currently receiving Decadron, hydralazine, tramadol, Zocor. ASSESSMENT AND DISCUSSION: Obesity, type 2 diabetes, coronary artery disease with bypass graft surgery, peripheral vascular disease, chronic smoking, gait instability, severe colon pneumonia requiring high-flow nasal cannula O2. Her MADHU score is 8.92, so she does not present an intermediate risk for further deterioration and requirement of intubation, but she is still with high level of requirements, still has some altered mental state, although she seemed to be oriented, probable delirium associated with acute illness. Job ID: [id number]
[2020-03-19 20:17] LABS: Anion Gap 15 mmol/L (10-20); BUN (Urea Nitrogen) 27 mg/dL (9.8-20.1); Calc. Creatinine Clearance 60 mL/min (70-130); Calcium 8.6 mg/dL (7.8-10.44); Carbon Dioxide 23 mmol/L (23-31); Chloride 114 mmol/L (98-107); Glucose 212 mg/dL (80-115); Sodium 149 mmol/L (136-145)
[2020-03-20] MEDS ORDERED: Potassium Chloride 40 MEQ in Sodium Chloride 0.9% 250 ML 250 ML IVPB SCH (02:00)
[2020-03-20] MEDS ORDERED: Potassium Chloride 20 MEQ TAB PO SCH (02:00)
[2020-03-20] MEDS: Sodium Chloride 0.9% 1,000 ML IV SCH (02:25)
[2020-03-20] MEDS: Labetalol HCl 100 MG/20 ML VIAL SLOW IVP PRN ×3 (05:07→17:33)
[2020-03-20 05:32] LABS: Anion Gap 16 mmol/L (10-20); BUN (Urea Nitrogen) 24 mg/dL (9.8-20.1); Calc. Creatinine Clearance 72 mL/min (70-130); Calcium 8.4 mg/dL (7.8-10.44); Carbon Dioxide 23 mmol/L (23-31); Chloride 114 mmol/L (98-107); Glucose 64 mg/dL (80-115); Potassium 3.7 mmol/L (3.5-5.1); Sodium 149 mmol/L (136-145)
[2020-03-20 06:12] LABS: Band 6 % (5-11); Hemoglobin 16.4 g/dL (12.0-16.0); Lymphocytes 6 % (21-51); MDiff Complete? YES; Mean Corpuscular HGB CONC 31.1 g/dL (32.0-36.0); Mean Corpuscular Hemoglobin 27.5 pg (27.0-31.0); Mean Corpuscular Volume 88.3 fL (78.0-98.0); Mean Platelet Volume 8.1 fL (7.4-10.4); Monocytes 3 % (0-10); Neutrophil 85 % (42-75); Platelet Count 327 thou/uL (130-400); RBC Distribution Width 14.8 % (11.5-14.5); Red Blood Cell (RBC) Count 5.98 mill/uL (4.20-5.40); White Blood Cell (WBC) Count 9.9 thou/uL (4.8-10.8)
[2020-03-20] MEDS: NIFEdipine XL 60 MG TAB PO SCH (08:47)
[2020-03-20] MEDS: Enoxaparin Sodium 40 MG/0.4 ML SYRINGE SC SCH ×2 (08:47→20:16)
[2020-03-20] MEDS: Ascorbic Acid 500 mg Chewable Tablet PO SCH (08:48)
[2020-03-20] MEDS: glipiZIDE 5 MG TAB PO SCH (08:48)
[2020-03-20] MEDS: Doxycycline 100 MG CAP PO SCH ×2 (08:49→20:18)
[2020-03-20] MEDS: Clopidogrel Bisulfate 75 MG TAB PO SCH (08:49)
[2020-03-20] MEDS: Dexamethasone 4 mg/ml Vial SLOW IVP SCH ×2 (08:49→20:17)
[2020-03-20] MEDS: FLUoxetine HCl 20 MG CAP PO SCH (08:49)
[2020-03-20] MEDS: hydrALAZINE 25 MG TAB PO SCH ×3 (08:49→20:18)
[2020-03-20] MEDS: Metoprolol Tartrate 25 MG TAB PO SCH (08:49)
[2020-03-20] MEDS: Cholecalciferol (Vitamin D3) 400 UNITS TAB PO SCH (08:52)
[2020-03-20] MEDS: Insulin Glargine 30 UNITS in Pre-Filled Syringe 1 EACH SC SCH (12:04)
[2020-03-20] MEDS: Simvastatin 20 MG TAB PO SCH (12:05)
--- NOTE | 2020-03-20 12:48 | PRG ---
DATE OF SERVICE: 03/20/2020 SUBJECTIVE: This morning, she is doing better. Her saturations are 100%. She is apparently on high flow. OBJECTIVE: VITAL SIGNS: Pulse 80, respiratory rate 18, blood pressure 140/80. CHEST: No wheezing, no crackles. CARDIAC: Normal S1, S2. No gallops. ABDOMEN: No masses. ASSESSMENT: Respiratory failure, foote positive pneumonia. High-dose steroids. Empiric antibiotics. Baseline x-ray being ordered. Try and decrease the FiO2 requirement. Hopefully, can get her down to nasal O2 soon. Job ID: [id number]
--- NOTE | 2020-03-20 13:43 | PDOC.HOSPP ---
- Subjective Encounter Date: 03/20/20 Encounter Time: 10:30 Subjective: pt up in bed no complains. she seems to be eating better today. - Objective Vital Signs & Weight: Vital Signs (12 hours) Temp Pulse Resp BP Pulse Ox 03/20/20 12:29 71 20 173/80 H 99 03/20/20 12:10 74 03/20/20 11:23 97.6 F 74 18 203/95 H 100 03/20/20 05:05 97.0 F L 81 20 169/81 H 93 L 03/20/20 03:24 98.0 F 89 18 217/106 H 91 L Weight Admit Weight 159 lb 11.2 oz Weight 159 lb 11.2 oz Most Recent Monitor Data Heart Rate from ECG 89 NIBP 165/98 NIBP BP-Mean 104 Respiration from ECG 22 SpO2 99 I&O: 03/19/20 03/20/20 03/21/20 06:59 06:59 06:59 Intake Total 2352 1390 Output Total 2550 1950 Balance -198 -560 Result Diagrams: 03/20/20 04:23 03/20/20 04:23 Additional Labs: Accuchecks 03/20/20 03/20/20 03/20/20 10:59 06:09 05:25 POC Glucose 100 88 58 L* 03/19/20 03/19/20 20:29 16:41 POC Glucose 187 H 399 H Hospitalist ROS - Review of Systems Cardiovascular: denies: chest pain, palpitations, orthopnea, paroxysmal noc. dyspnea, edema, light headedness, other Gastrointestinal: denies: nausea, vomiting, abdominal pain, diarrhea, constipation, melena, hematochezia, other Genitourinary: denies: dysuria, frequency, incontinence, hematuria, retention, other - Medication Medications: Active Medications Generic Name Dose Route Start Last Admin Trade Name Freq PRN Reason Stop Dose Admin Acetaminophen 650 mg 03/13/20 23:28 03/19/20 20:34 Acetaminophen 325 Mg Tab PO 650 mg Q4H PRN Administration Headache/Fever/Mild Pain (1-3) Ascorbic Acid 1,000 mg 03/14/20 09:00 03/20/20 08:48 Ascorbic Acid 500 Mg Chewable Tablet PO 1,000 mg DAILY SUKHDEEP Administration Cholecalciferol 400 units 03/14/20 09:00 03/20/20 08:52 Cholecalciferol (Vitamin D3) 400 Units Tab PO 400 units DAILY SUKHDEEP Administration Clopidogrel Bisulfate 75 mg 03/14/20 09:00 03/20/20 08:49 Clopidogrel Bisulfate 75 Mg Tab PO 75 mg DAILY SUKHDEEP Administration Dexamethasone 6 mg 03/15/20 21:00 03/20/20 08:49 Dexamethasone 4 Mg/Ml Vial SLOW IVP 6 mg BID SUKHDEEP Administration Doxycycline Hyclate 100 mg 03/17/20 21:00 03/20/20 08:49 Doxycycline 100 Mg Cap PO 03/27/20 21:01 100 mg BID SUKHDEEP Administration Enoxaparin Sodium 40 mg 03/15/20 21:00 03/20/20 08:47 Enoxaparin Sodium 40 Mg/0.4 Ml Syringe SC 40 mg BID SUKHDEEP Administration Fluoxetine HCl 20 mg 03/16/20 09:00 03/20/20 08:49 Fluoxetine Hcl 20 Mg Cap PO 20 mg DAILY SUKHDEEP Administration Glipizide 5 mg 03/15/20 07:30 03/20/20 08:48 Glipizide 5 Mg Tab PO 5 mg BID-AC SUKHDEEP Administration Hydralazine HCl 10 mg 03/14/20 19:30 03/19/20 05:48 Hydralazine 20 Mg/Ml Vial SLOW IVP 10 mg Q4H PRN Administration SBP > 180 and HR < 70 Hydralazine HCl 25 mg 03/19/20 15:00 03/20/20 08:49 Hydralazine 25 Mg Tab PO 25 mg TID SUKHDEEP Administration Insulin Glargine 30 units/ 0.3 mls @ 0 mls/hr 03/18/20 21:00 03/19/20 20:35 Miscellaneous Medication SC 0.3 mls HS SUKHDEEP Administration Insulin Glargine 30 units/ 0.3 mls @ 0 mls/hr 03/18/20 09:00 03/20/20 12:04 Miscellaneous Medication SC 0.3 mls QAM SUKHDEEP Administration Insulin Human Lispro 0 units 03/13/20 23:35 03/19/20 16:44 Humalog 300 Units/3 Ml Vial SC 10 unit .MODERATE SLIDING SC PRN Administration Moderate Correctional Scale Labetalol HCl 20 mg 03/14/20 19:30 03/20/20 12:10 Labetalol Hcl 100 Mg/20 Ml Vial SLOW IVP 4 ml Q4H PRN Administration SBP > 180 and HR >/= 70 Metoprolol Succinate 25 mg 03/20/20 09:00 03/20/20 08:49 Metoprolol Succinate Xl 25 Mg Tab PO 25 mg DAILY SUKHDEEP Administration Metoprolol Tartrate 25 mg 03/14/20 09:00 03/20/20 08:49 Metoprolol Tartrate 25 Mg Tab PO 25 mg BID SUKHDEEP Administration Nifedipine 60 mg 03/15/20 09:00 03/20/20 08:47 Nifedipine Xl 60 Mg Tab PO 60 mg DAILY SUKHDEEP Administration Pantoprazole Sodium 40 mg 03/14/20 21:00 03/19/20 20:36 Pantoprazole 40 Mg Tab PO 40 mg HS SUKHDEEP Administration Simvastatin 20 mg 03/14/20 09:00 03/20/20 12:05 Simvastatin 20 Mg Tab PO 20 mg DAILY SUKHDEEP Administration Sodium Chloride 10 ml 03/19/20 09:00 03/20/20 08:52 Flush - Normal Saline 10 Ml Syringe IVF 10 ml Q12HR SUKHDEEP Administration Tramadol HCl 50 mg 03/18/20 14:52 03/19/20 02:08 Tramadol Hcl 50 Mg Tab PO 50 mg Q6H PRN Administration Mild Pain (1-3) - Exam Heart: negative: RRR, no murmur, no gallops, no rubs, normal peripheral pulses, irregular, diminshed peripheral pulses, murmur present, II/IV, III/IV Respiratory: negative: CTAB, no wheezes, no rales, no ronchi, normal chest expansion, no tachypnea, normal percussion, rales, rhonchi, tachypneic, wheezes Gastrointestinal: negative: soft, non-tender, non-distended, normal bowel sounds, no palpable masses, no hepatomegaly, no splenomegaly, no bruit, no guarding, no rigidity, tender to palpation, distended, diminished bowl sounds, voluntary guarding Extremities: negative: no cyanosis, no clubbing, no edema, 1+ LE edema, 2+ LE edema, clubbing Hosp A/P - Plan (1) Pneumonia due to COVID-19 virus Code(s): U07.1 - COVID-19; J12.89 - OTHER VIRAL PNEUMONIA Status: Acute (2) Acute respiratory failure with hypoxia Code(s): J96.01 - ACUTE RESPIRATORY FAILURE WITH HYPOXIA Status: Acute (3) EDIE (acute kidney injury) Code(s): N17.9 - ACUTE KIDNEY FAILURE, UNSPECIFIED Status: Acute (4) CAD (coronary artery disease) Code(s): I25.10 - ATHSCL HEART DISEASE OF [place] CORONARY ARTERY W/O ANG PCTRS Status: Chronic Qualifiers: Coronary Disease-Associated Artery/Lesion type: bypass graft [place] vs. transplanted heart: [place] heart Associated angina: without angina Qualified Code(s): I25.810 - Atherosclerosis of coronary artery bypass graft(s) without angina pectoris (5) Diabetes Code(s): E11.9 - TYPE 2 DIABETES MELLITUS WITHOUT COMPLICATIONS Status: Chronic Qualifiers: Diabetes mellitus type: type 2 Diabetes mellitus correction insulin use: without intermodal dispatcher use (6) HTN (hypertension) Code(s): I10 - ESSENTIAL (PRIMARY) HYPERTENSION Status: Chronic Qualifiers: Hypertension type: essential hypertension Qualified Code(s): I10 - Esse ntial (primary) hypertension (7) Dehydration Code(s): E86.0 - DEHYDRATION Status: Acute - Plan renal function is getting better, will be a candidate for remdesivir if cleared by either or day 6 of symptom onset/diagnosis, is on dexamethasone, high flow O2 continue plavix, zocor, lopressor, lantus, lyrica and protonix prognosis guarded, full code, lives with her . 1 patient started on remdesivir patient has been called appears that patient had a mechanical fall on the she was brought into an outside clinic on the for shortness of breath. Initially they thought the shortness of breath was because of the fall possible rib fracture. However her shortness of breath worsened at this time she was brought in on the and at this time she was noted to be hypoxic and was admitted to the hospital. Patient received convalescent plasma. I will put an order in for pharmacy for remdesivir. we we will continue DVT prophylaxis. Will continue steroids. Her FiO2 currently on BiPAP is 70%. She is maintaining sats around 95%. 03/16 pt's oxygen has been reduced to 60% she is doing well on bipap. Per pulmonary pt will be put on high flow in am. will continue steroids. unable to put pt on remdesivir since pt is on bipap. 03/17 patient downgraded from BiPAP to high flow doing well so far. We will continue to monitor. She is not a candidate for remdesivir since she is on high flow. We will continue steroids DVT prophylaxis. Speech has been evaluated to see her. We will replace potassium. Continue IV fluids for now 03/18 patient continues to be on high flow. She is not eating very much. I encouraged her to eat. Continues to be on DVT prophylaxis. We will replace electrolytes. 03/19 patient continues to be on high flow. She is again not eating very much and has significant dysphagia and has been coughing even on thickened liquids. We will start patient on PPN. 03/20 speech evaluated her and stated that her dysphagia has improved. will adv ance her diet. will continue current meds. will check electrolytes today since she had svt last night per nursing staff.
[2020-03-20] MEDS: Dextrose 5% in Water 1,000 ML IV SCH (15:14)
[2020-03-20 15:19] LABS: CRP (Inflammatory) 0.66 mg/dL (= or < 0.5); Phosphorus 3.2 mg/dL (2.3-4.7)
[2020-03-20] MEDS: Acetaminophen 325 MG TAB PO PRN (15:25)
[2020-03-20] MEDS: HumaLOG 300 UNITS/3 ML VIAL SC PRN (17:33)
[2020-03-21] MEDS: hydrALAZINE 20 MG/ML VIAL SLOW IVP PRN (00:18)
[2020-03-21] MEDS: Dextrose 5% in Water 1,000 ML IV SCH ×2 (00:18→21:01)
[2020-03-21 05:21] LABS: #Lymphocytes 0.8 thou/uL (1.20-3.40); #Monocytes 0.4 thou/uL (0.11-0.59); #Neutrophils 7.6 thou/uL (1.40-6.50); %Basophils 0.1 % (0.0-1.0); %Eosinophils 0.2 % (0.0-10.0); %Monocytes 4.3 % (0.0-10.0); %Neutrophils 86.4 % (42.0-75.0); Mean Corpuscular HGB CONC 33.6 g/dL (32.0-36.0); Mean Corpuscular Hemoglobin 29.3 pg (27.0-31.0); Mean Corpuscular Volume 87.2 fL (78.0-98.0); Mean Platelet Volume 8.3 fL (7.4-10.4); Platelet Count 346 thou/uL (130-400); RBC Distribution Width 14.6 % (11.5-14.5); Red Blood Cell (RBC) Count 5.46 mill/uL (4.20-5.40); White Blood Cell (WBC) Count 8.8 thou/uL (4.8-10.8)
[2020-03-21] MEDS: HumaLOG 300 UNITS/3 ML VIAL SC PRN ×4 (05:49→20:53)
[2020-03-21 05:59] LABS: BUN (Urea Nitrogen) 23 mg/dL (9.8-20.1); Calc. Creatinine Clearance 60 mL/min (70-130); Calcium 8.2 mg/dL (7.8-10.44); Carbon Dioxide 25 mmol/L (23-31); Glucose 258 mg/dL (80-115)
[2020-03-21 06:05] LABS: Anion Gap 15 mmol/L (10-20); Chloride 107 mmol/L (98-107); Potassium 4.6 mmol/L (3.5-5.1); Sodium 142 mmol/L (136-145)
[2020-03-21] MEDS ORDERED: Magnesium 2 GM/50 ML 2 GM in Premix Bag 1 BAG IVPB SCH (06:30)
--- NOTE | 2020-03-21 08:07 | RAD ---
Portable frontal chest radiograph: 03/21/2020 COMPARISON: 03/17/2020 HISTORY: Viral infection FINDINGS: Stable midline sternotomy wires and heart/mediastinal contours. No pneumothorax. Multiple o ld left-sided rib fractures. Coarse linear interstitial density noted in the perihilar regions and both lung bases with superimposed bibasilar groundglass opacity, worsened since the 03/17/2020 examinat ion. IMPRESSION: Worsening interstitial and alveolar opacity suspicious for worsening bilateral Covid pneu monia.
[2020-03-21] MEDS: Insulin Glargine 30 UNITS in Pre-Filled Syringe 1 EACH SC SCH ×2 (08:55→20:52)
[2020-03-21] MEDS: Enoxaparin Sodium 40 MG/0.4 ML SYRINGE SC SCH ×2 (08:56→21:31)
[2020-03-21] MEDS: Doxycycline 100 MG CAP PO SCH ×2 (08:56→20:52)
[2020-03-21] MEDS: Cholecalciferol (Vitamin D3) 400 UNITS TAB PO SCH (08:57)
[2020-03-21] MEDS: NIFEdipine XL 60 MG TAB PO SCH (08:57)
[2020-03-21] MEDS: Ascorbic Acid 500 mg Chewable Tablet PO SCH (08:57)
[2020-03-21] MEDS: Metoprolol Tartrate 25 MG TAB PO SCH ×2 (08:59→20:52)
[2020-03-21] MEDS: Clopidogrel Bisulfate 75 MG TAB PO SCH (08:59)
[2020-03-21] MEDS: hydrALAZINE 25 MG TAB PO SCH ×3 (09:00→20:52)
[2020-03-21] MEDS: FLUoxetine HCl 20 MG CAP PO SCH (09:00)
[2020-03-21] MEDS: Simvastatin 20 MG TAB PO SCH (09:00)
[2020-03-21] MEDS: Dexamethasone 4 mg/ml Vial SLOW IVP SCH ×2 (09:01→20:52)
--- NOTE | 2020-03-21 10:40 | PRG ---
DATE OF SERVICE: 03/21/2020 SUBJECTIVE: X-ray looks better, still bibasilar infiltrates. OBJECTIVE: VITAL SIGNS: Temperature , pulse 79, respirations 24, sats 95% on 60, FiO2 flow rate of 40, blood pressure 190/80. CHEST: No wheezing. No crackles. CARDIAC: Normal. S1, S2. No gallops. ABDOMEN: No masses. LABORATORY DATA: Unremarkable. ASSESSMENT: [place]-positive pneumonia, respiratory failure, still requiring high-flow. Continue high-dose steroids, antibiotics, supportive care. We will follow. Job ID: [id number]
[2020-03-21] MEDS: Acetaminophen 325 MG TAB PO PRN (11:41)
--- NOTE | 2020-03-21 17:20 | PDOC.HOSPP ---
- Subjective Encounter Date: 03/21/20 Encounter Time: 11:20 Subjective: Patient up in bed no complaints. - Objective Vital Signs & Weight: Vital Signs (12 hours) Temp Pulse Resp BP Pulse Ox 03/21/20 15:50 97.4 F L 78 20 138/67 96 03/21/20 14:29 75 03/21/20 12:00 97.0 F L 75 21 H 156/74 H 96 03/21/20 11:17 98.8 F 76 16 136/73 96 03/21/20 09:00 98.7 F 78 24 H 191/89 H 94 L Weight Admit Weight 159 lb 11.2 oz Weight 147 lb 8 oz Most Recent Monitor Data Heart Rate from ECG 89 NIBP 165/98 NIBP BP-Mean 104 Respiration from ECG 22 SpO2 99 I&O: 03/20/20 03/21/20 03/22/20 06:59 06:59 06:59 Intake Total 1390 1090 60 Output Total 1950 1500 Balance -560 -410 60 Result Diagrams: 03/21/20 04:41 03/21/20 04:41 Additional Labs: Accuchecks 03/21/20 03/21/20 03/21/20 16:50 10:28 05:36 POC Glucose 260 H 186 H 255 H 03/20/20 03/20/20 21:07 20:28 POC Glucose 234 H 272 H Hospitalist ROS - Review of Systems Cardiovascular: denies: chest pain, palpitations, orthopnea, paroxysmal noc. dyspnea, edema, light headedness, other Gastrointestinal: denies: nausea, vomiting, abdominal pain, diarrhea, cons tipation, melena, hematochezia, other Genitourinary: denies: dysuria, frequency, incontinence, hematuria, retention, other - Medication Medications: Active Medications Generic Name Dose Route Start Last Admin Trade Name Freq PRN Reason Stop Dose Admin Acetaminophen 650 mg 03/13/20 23:28 03/21/20 11:41 Acetaminophen 325 Mg Tab PO 650 mg Q4H PRN Administration Headache/Fever/Mild Pain (1-3) Ascorbic Acid 1,000 mg 03/14/20 09:00 03/21/20 08:57 Ascorbic Acid 500 Mg Chewable Tablet PO 1,000 mg DAILY SUKHDEEP Administration Cholecalciferol 400 units 03/14/20 09:00 03/21/20 08:57 Cholecalciferol (Vitamin D3) 400 Units Tab PO 400 units DAILY SUKHDEEP Administration Clopidogrel Bisulfate 75 mg 03/14/20 09:00 03/21/20 08:59 Clopidogrel Bisulfate 75 Mg Tab PO 75 mg DAILY SUKHDEEP Administration Dexamethasone 6 mg 03/15/20 21:00 03/21/20 09:01 Dexamethasone 4 Mg/Ml Vial SLOW IVP 6 mg BID SUKHDEEP Administration Doxycycline Hyclate 100 mg 03/17/20 21:00 03/21/20 08:56 Doxycycline 100 Mg Cap PO 03/27/20 21:01 100 mg BID SUKHDEEP Administration Enoxaparin Sodium 40 mg 03/15/20 21:00 03/21/20 08:56 Enoxaparin Sodium 40 Mg/0.4 Ml Syringe SC 40 mg BID SUKHDEEP Administration Fluoxetine HCl 20 mg 03/16/20 09:00 03/21/20 09:00 Fluoxetine Hcl 20 Mg Cap PO 20 mg DAILY SUKHDEEP Administration Glipizide 5 mg 03/15/20 07:30 03/20/20 08:48 Glipizide 5 Mg Tab PO 5 mg BID-AC SUKHDEEP Administration Hydralazine HCl 10 mg 03/14/20 19:30 03/21/20 00:18 Hydralazine 20 Mg/Ml Vial SLOW IVP 10 mg Q4H PRN Administration SBP > 180 and HR < 70 Hydralazine HCl 25 mg 03/19/20 15:00 03/21/20 14:29 Hydralazine 25 Mg Tab PO 25 mg TID SUKHDEEP Administration Insulin Glargine 30 units/ 0.3 mls @ 0 mls/hr 03/18/20 21:00 03/19/20 20:35 Miscellaneous Medication SC 0.3 mls HS SUKHDEEP Administration Insulin Glargine 30 units/ 0.3 mls @ 0 mls/hr 03/18/20 09:00 03/21/20 08:55 Miscellaneous Medication SC 0.3 mls QAM SUKHDEEP Administration Dextrose/Water 1,000 mls @ 75 mls/hr 03/20/20 13:45 03/21/20 00:18 D5w IV 1,000 mls .[id number] SUKHDEEP Administration Insulin Human Lispro 0 units 03/13/20 23:35 03/21/20 11:41 Humalog 300 Units/3 Ml Vial SC 2 unit .MODERATE SLIDING SC PRN Administration Moderate Correctional Scale Labetalol HCl 20 mg 03/14/20 19:30 03/20/20 12:10 Labetalol Hcl 100 Mg/20 Ml Vial SLOW IVP 4 ml Q4H PRN Administration SBP > 180 and HR >/= 70 Metoprolol Tartrate 25 mg 03/14/20 09:00 03/21/20 08:59 Metoprolol Tartrate 25 Mg Tab PO 25 mg BID SUKHDEEP Administration Nifedipine 60 mg 03/15/20 09:00 03/21/20 08:57 Nifedipine Xl 60 Mg Tab PO 60 mg DAILY SUKHDEEP Administration Pantoprazole Sodium 40 mg 03/14/20 21:00 03/20/20 20:18 Pantoprazole 40 Mg Tab PO 40 mg HS SUKHDEEP Administration Simvastatin 20 mg 03/14/20 09:00 03/21/20 09:00 Simvastatin 20 Mg Tab PO 20 mg DAILY SUKHDEEP Administration Sodium Chloride 10 ml 03/19/20 09:00 03/21/20 09:01 Flush - Normal Saline 10 Ml Syringe IVF Not Given Q12HR SUKHDEEP Tramadol HCl 50 mg 03/18/20 14:52 03/19/20 02:08 Tramadol Hcl 50 Mg Tab PO 50 mg Q6H PRN Administration Mild Pain (1-3) - Exam Neck: negative: supple, symmetric, no JVD, no thyromegaly, no lymphadenopathy, no carotid bruit, JVD Heart: negative: RRR, no murmur, no gallops, no rubs, normal peripheral pulses, irregular, diminshed peripheral pulses, murmur present, II/IV, III/IV Respiratory: negative: CTAB, no wheezes, no rales, no ronchi, normal chest expansion, no tachypnea, normal percussion, rales, rhonchi, tachypneic, wheezes Hosp A/P - Plan (1) Pneumonia due to COVID-19 virus Code(s): U07.1 - COVID-19; J12.89 - OTHER VIRAL PNEUMONIA Status: Acute (2) Acute respiratory failure with hypoxia Code(s): J96.01 - ACUTE RESPIRATORY FAILURE WITH HYPOXIA Status: Acute (3) EDIE (acute kidney injury) Code(s): N17.9 - ACUTE KIDNEY FAILURE, UNSPECIFIED Status: Acute (4) CAD (coronary artery disease) Code(s): I25.10 - ATHSCL HEART DISEASE OF [place] CORONARY ARTERY W/O ANG PCTRS Status: Chronic Qualifiers: Coronary Disease-Associated Artery/Lesion type: bypass graft [place] vs. transplanted heart: [place] heart Associated angina: without angina Qualified Code(s): I25.810 - Atherosclerosis of coronary artery bypass graft(s) without angina pectoris (5) Diabetes Code(s): E11.9 - TYPE 2 DIABETES MELLITUS WITHOUT COMPLICATIONS Status: Chronic Qualifiers: Diabetes mellitus type: type 2 Diabetes mellitus exterminator helper termite insulin use: without exterminator helper termite use (6) HTN (hypertension) Code(s): I10 - ESSENTIAL (PRIMARY) HYPERTENSION Status: Chronic Qualifiers: Hypertension type: essential hypertension Qualified Code(s): I10 - Essential (primary) hypertension (7) Dehydration Code(s): E86.0 - DEHYDRATION Status: Acute - Plan renal function is getting better, will be a candidate for remdesivir if cleared by either or day 6 of symptom onset/diagnosis, is on dexamethasone, high flow O2 continue plavix, zocor, lopressor, lantus, lyrica and protonix prognosis guarded, full code, lives with her . 03/15 patient started on remdesivir patient has been called appears that patient had a mechanical fall on the she was brought into an outside clinic on the for shortness of breath. Initially they thought the shortness of breath was because of the fall possible rib fracture. However her shortness of breath worsened at this time she was brought in on the and at this time she was noted to be hypoxic and was admitted to the hospital. Patient received convalescent plasma. I will put an order in for pharmacy for remdesivir. we we will continue DVT prophylaxis. Will continue steroids. Her FiO2 currently on BiPAP is 70%. She is maintaining sats around 95%. 03/16 pt's oxygen has been reduced to 60% she is doing well on bipap. Per pulmonary pt will be put on high flow in am. will continue steroids. unable to put pt on remdesivir since pt is on bipap. 03/17 patient downgraded from BiPAP to high flow doing well so far. We will continue to monitor. She is not a candidate for remdesivir since she is on high flow. We will continue steroids DVT prophylaxis. Speech has been evaluated to see her. We will replace potassium. Continue IV fluids for now 03/18 patient continues to be on high flow. She is not eating very much. I encouraged her to eat. Continues to be on DVT prophylaxis. We will replace electrolytes. 03/19 patient continues to be on high flow. She is again not eating very much and has significant dysphagia and has been coughing even on thickened liquids. We will start patient on PPN. 03/20 speech evaluated her and stated that her dysphagia has improved. will advance her diet. will continue current meds. will check electrolytes today since she had svt last night per nursing staff. 03/21 nursing staff today she has not been eating very much. Continues to be on high flow. Continue steroids and DVT prophylaxis. Patient's called yesterday and updated
[2020-03-21] MEDS: Labetalol HCl 100 MG/20 ML VIAL SLOW IVP PRN (22:06)
[2020-03-22] MEDS: Labetalol HCl 100 MG/20 ML VIAL SLOW IVP PRN (00:47)
[2020-03-22] MEDS: Dextrose 5% in Water 1,000 ML IV SCH (05:16)
[2020-03-22] MEDS: HumaLOG 300 UNITS/3 ML VIAL SC PRN ×2 (05:23→18:29)
[2020-03-22 05:27] LABS: #Lymphocytes 0.7 thou/uL (1.20-3.40); #Monocytes 0.5 thou/uL (0.11-0.59); #Neutrophils 7.4 thou/uL (1.40-6.50); %Basophils 0.3 % (0.0-1.0); %Eosinophils 0.5 % (0.0-10.0); %Lymphocytes 8.1 % (21.0-51.0); %Monocytes 5.3 % (0.0-10.0); %Neutrophils 85.8 % (42.0-75.0); Hemoglobin 14.9 g/dL (12.0-16.0); Mean Corpuscular HGB CONC 34.3 g/dL (32.0-36.0); Mean Corpuscular Hemoglobin 29.5 pg (27.0-31.0); Mean Corpuscular Volume 85.9 fL (78.0-98.0); Mean Platelet Volume 8.5 fL (7.4-10.4); Platelet Count 337 thou/uL (130-400); RBC Distribution Width 14.4 % (11.5-14.5); Red Blood Cell (RBC) Count 5.04 mill/uL (4.20-5.40); White Blood Cell (WBC) Count 8.6 thou/uL (4.8-10.8)
[2020-03-22 05:41] LABS: Anion Gap 12 mmol/L (10-20); BUN (Urea Nitrogen) 22 mg/dL (9.8-20.1); Calc. Creatinine Clearance 68 mL/min (70-130); Calcium 7.7 mg/dL (7.8-10.44); Carbon Dioxide 21 mmol/L (23-31); Chloride 105 mmol/L (98-107); Glucose 201 mg/dL (80-115); Magnesium 1.9 mg/dL (1.6-2.6); Potassium 3.6 mmol/L (3.5-5.1); Sodium 134 mmol/L (136-145)
[2020-03-22] MEDS ORDERED: Magnesium 2 GM/50 ML 2 GM in Premix Bag 1 BAG IVPB SCH (06:30)
[2020-03-22] MEDS: Insulin Glargine 30 UNITS in Pre-Filled Syringe 1 EACH SC SCH ×2 (09:03→22:42)
[2020-03-22] MEDS: Enoxaparin Sodium 40 MG/0.4 ML SYRINGE SC SCH ×2 (09:04→22:41)
[2020-03-22] MEDS: Dexamethasone 4 mg/ml Vial SLOW IVP SCH ×2 (09:05→22:44)
[2020-03-22] MEDS: Acetaminophen 325 MG TAB PO PRN (09:07)
[2020-03-22] MEDS: Doxycycline 100 MG CAP PO SCH ×2 (09:08→22:42)
[2020-03-22] MEDS: FLUoxetine HCl 20 MG CAP PO SCH (09:08)
[2020-03-22] MEDS: Metoprolol Tartrate 25 MG TAB PO SCH ×2 (09:09→22:43)
[2020-03-22] MEDS: NIFEdipine XL 60 MG TAB PO SCH (09:09)
[2020-03-22] MEDS: Simvastatin 20 MG TAB PO SCH (09:09)
[2020-03-22] MEDS: Cholecalciferol (Vitamin D3) 400 UNITS TAB PO SCH (09:09)
[2020-03-22] MEDS: hydrALAZINE 25 MG TAB PO SCH ×3 (09:09→22:43)
[2020-03-22] MEDS: Ascorbic Acid 500 mg Chewable Tablet PO SCH (09:09)
[2020-03-22] MEDS: Clopidogrel Bisulfate 75 MG TAB PO SCH (09:09)
--- NOTE | 2020-03-22 16:08 | PDOC.HOSPP ---
- Subjective Encounter Date: 03/22/20 Encounter Time: 12:30 Subjective: pt up in bed no complains - Objective Vital Signs & Weight: Vital Signs (12 hours) Temp Pulse Resp BP Pulse Ox 03/22/20 11:35 96.4 F L 78 20 168/77 H 94 L 03/22/20 09:10 98.3 F 79 16 187/85 H 98 Weight Admit Weight 159 lb 11.2 oz Weight 147 lb 1.6 oz Most Recent Monitor Data Heart Rate from ECG 89 NIBP 165/98 NIBP BP-Mean 104 Respiration from ECG 22 SpO2 99 I&O: 03/21/20 03/22/20 03/23/20 06:59 06:59 06:59 Intake Total 1090 1644 30 Output Total 1500 1467 Balance -410 177 30 Result Diagrams: 03/22/20 05:03 03/22/20 05:03 Additional Labs: Accuchecks 03/22/20 03/21/20 03/21/20 11:02 20:07 16:50 POC Glucose 117 H 201 H 260 H Hospitalist ROS - Review of Systems Respiratory: denies: cough, dry, shortness of breath, hemoptysis, SOB with excertion, pleuritic pain, sputum, wheezing, other Cardiovascular: denies: chest pain, palpitations, orthopnea, paroxysmal noc. dyspnea, edema, light headedness, other Gastrointestinal: denies: nausea, vomiting, abdominal pain, diarrhea, constipation, melena, hematochezia, other - Medication Medications: Active Medications Generic Name Dose Route Start Last Admin Trade Name Freq PRN Reason Stop Dose Admin Acetaminophen 650 mg 03/13/20 23:28 03/22/20 09:07 Acetaminophen 325 Mg Tab PO 650 mg Q4H PRN Administration Headache/Fever/Mild Pain (1-3) Ascorbic Acid 1,000 mg 03/14/20 09:00 03/22/20 09:09 Ascorbic Acid 500 Mg Chewable Tablet PO 1,000 mg DAILY SUKHDEEP Administration Cholecalciferol 400 units 03/14/20 09:00 03/22/20 09:09 Cholecalciferol (Vitamin D3) 400 Units Tab PO 400 units DAILY SUKHDEEP Administration Clopidogrel Bisulfate 75 mg 03/14/20 09:00 03/22/20 09:09 Clopidogrel Bisulfate 75 Mg Tab PO 75 mg DAILY SUKHDEEP Administration Dexamethasone 6 mg 03/15/20 21:00 03/22/20 09:05 Dexamethasone 4 Mg/Ml Vial SLOW IVP 6 mg BID SUKHDEEP Administration Doxycycline Hyclate 100 mg 03/17/20 21:00 03/22/20 09:08 Doxycycline 100 Mg Cap PO 03/27/20 21:01 100 mg BID SUKHDEEP Administration Enoxaparin Sodium 40 mg 03/15/20 21:00 03/22/20 09:04 Enoxaparin Sodium 40 Mg/0.4 Ml Syringe SC 40 mg BID SUKHDEEP Administration Fluoxetine HCl 20 mg 03/16/20 09:00 03/22/20 09:08 Fluoxetine Hcl 20 Mg Cap PO 20 mg DAILY SUKHDEEP Administration Glipizide 5 mg 03/15/20 07:30 03/20/20 08:48 Glipizide 5 Mg Tab PO 5 mg BID-AC SUKHDEEP Administration Hydralazine HCl 10 mg 03/14/20 19:30 03/21/20 00:18 Hydralazine 20 Mg/Ml Vial SLOW IVP 10 mg Q4H PRN Administration SBP > 180 and HR < 70 Hydralazine HCl 25 mg 03/19/20 15:00 03/22/20 09:09 Hydralazine 25 Mg Tab PO 25 mg TID SUKHDEEP Administration Insulin Glargine 30 units/ 0.3 mls @ 0 mls/hr 03/18/20 21:00 03/21/20 20:52 Miscellaneous Medication SC 0.3 mls HS SUKHDEEP Administration Insulin Glargine 30 units/ 0.3 mls @ 0 mls/hr 03/18/20 09:00 03/22/20 09:03 Miscellaneous Medication SC 0.3 mls QAM SUKHDEEP Administration Dextrose/Water 1,000 mls @ 75 mls/hr 03/20/20 13:45 03/22/20 05:16 D5w IV 1,000 mls .[id number] SUKHDEEP Administration Insulin Human Lispro 0 units 03/13/20 23:35 03/22/20 05:23 Humalog 300 Units/3 Ml Vial SC 4 unit .MODERATE SLIDING SC PRN Administration Moderate [place] Scale Labetalol HCl 20 mg 03/14/20 19:30 03/22/20 00:47 Labetalol Hcl 100 Mg/20 Ml Vial SLOW IVP 4 ml Q4H PRN Administration SBP > 180 and HR >/= 70 Metoprolol Tartrate 25 mg 03/14/20 09:00 03/22/20 09:09 Metoprolol Tartrate 25 Mg Tab PO 25 mg BID SUKHDEEP Administration Nifedipine 60 mg 03/15/20 09:00 03/22/20 09:09 Nifedipine Xl 60 Mg Tab PO 60 mg DAILY SUKHDEEP Administration Pantoprazole Sodium 40 mg 03/14/20 21:00 03/21/20 20:52 Pantoprazole 40 Mg Tab PO 40 mg HS SUKHDEEP Administration Simvastatin 20 mg 03/14/20 09:00 03/22/20 09:09 Simvastatin 20 Mg Tab PO 20 mg DAILY SUKHDEEP Administration Sodium Chloride 10 ml 03/19/20 09:00 03/22/20 09:09 Flush - Normal Saline 10 Ml Syringe IVF 10 ml Q12HR SUKHDEEP Administration Sodium Chloride 10 ml 03/19/20 07:00 03/21/20 22:07 Flush - Normal Saline 10 Ml Syringe IVF 10 ml PRN PRN Administration Saline Flush Tramadol HCl 50 mg 03/18/20 14:52 03/19/20 02:08 Tramadol Hcl 50 Mg Tab PO 50 mg Q6H PRN Administration Mild Pain (1-3) - Exam Heart: negative: RRR, no murmur, no gallops, no rubs, normal peripheral pulses, irregular, diminshed peripheral pulses, murmur present, II/IV, III/IV Respiratory: negative: CTAB, no wheezes, no rales, no ronchi, normal chest expansion, no tachypnea, normal percussion, rales, rhonchi, tachypneic, wheezes Gastrointestinal: negative: soft, non-tender, non-distended, normal bowel sounds, no palpable masses, no hepatomegaly, no splenomegaly, no bruit, no guarding, no rigidity, tender to palpation, distended, diminished bowl sounds, voluntary guarding Hosp A/P - Plan (1) Pneumonia due to COVID-19 virus Code(s): U07.1 - COVID-19; J12.89 - OTHER VIRAL PNEUMONIA Status: Acute (2) Acute respiratory failure with hypoxia Code(s): J96.01 - ACUTE RESPIRATORY FAILURE WITH HYPOXIA Status: Acute (3) EDIE (acute kidney injury) Code(s): N17.9 - ACUTE KIDNEY FAILURE, UNSPECIFIED Status: Acute (4) CAD (coronary artery disease) Code(s): I25.10 - ATHSCL HEART DISEASE OF [place] CORONARY ARTERY W/O ANG PCTRS Status: Chronic Qualifiers: Coronary Disease-Associated Artery/Lesion type: bypass graft [place] vs. transplanted heart: [place] heart Associated angina: without angina Qualified Code(s): I25.810 - Atherosclerosis of coronary artery bypass graft(s) without angina pectoris (5) Diabetes Code(s): E11.9 - TYPE 2 DIABETES MELLITUS WITHOUT COMPLICATIONS Status: Chronic Qualifiers: Diabetes mellitus type: type 2 Diabetes mellitus senior care insulin use: without terminal gauger supervisor use (6) HTN (hypertension) Code(s): I10 - ESSENTIAL (PRIMARY) HYPERTENSION Status: Chronic Qualifiers: Hypertension type: essential hypertension Qualified Code(s): I10 - Essential (primary) hypertension (7) Dehydration Code(s): E86.0 - DEHYDRATION Status: Acute - Plan renal function is getting better, will be a candidate for remdesivir if cleared by either or day 6 of symptom onset/diagnosis, is on dexamethasone, high flow O2 continue plavix, zocor, lopressor, lantus, lyrica and protonix prognosis guarded, full code, lives with her . 03/15 patient started on remdesivir patient has been called appears that patient had a mechanical fall on the she was brought into an outside clinic on the for shortness of breath. Initially they thought the shortness of breath was because of the fall possible rib fracture. However her shortness of breath worsened at this time she was brought in on the and at this time she was noted to be hypoxic and was admitted to the hospital. Patient received convalescent plasma. I will put an order in for pharmacy for remdesivir. we we will continue DVT prophylaxis. Will continue steroids. Her FiO2 currently on BiPAP is 70%. She is maintaining sats around 95%. 03/16 pt's oxygen has been reduced to 60% she is doing well on bipap. Per pulmonary pt will be put on high flow in am. will continue steroids. unable to put pt on remdesivir since pt is on bipap. 03/17 patient downgraded from BiPAP to high flow doing well so far. We will continue to monitor. She is not a candidate for remdesivir since she is on high flow. We will continue steroids DVT prophylaxis. Speech has been evaluated to see her. We will replace potassium. Continue IV fluids for now 03/18 patient continues to be on high flow. She is not eating very much. I encouraged her to eat. Continues to be on DVT prophylaxis. We will replace electrolytes. 03/19 patient continues to be on high flow. She is again not eating very much and has significant dysphagia and has been coughing even on thickened liquids. We will start patient on PPN. 03/20 speech evaluated her and stated that her dysphagia has improved. will advance her diet. will continue current meds. will check electrolytes today since she had svt last night per nursing staff. 03/21 nursing staff today she has not been eating very much. Continues to be on high flow. Continue steroids and DVT prophylaxis. Patient's called yesterday and updated 03/22 patient's Chao catheter was removed yesterday. She has been having difficulty time urinating. Have encouraged her to get up to the bedside commode . She still not eating very much I have been encouraging her to eat more. We will continue steroids and DVT prophylaxis. Asked the nursing staff to wean her oxygen on high flow. We will stop D5 water her sodium has improved
[2020-03-22] MEDS: glipiZIDE 5 MG TAB PO SCH (16:28)
[2020-03-22] MEDS: hydrALAZINE 20 MG/ML VIAL SLOW IVP PRN (22:43)
[2020-03-23 05:19] LABS: #Lymphocytes 0.8 thou/uL (1.20-3.40); #Monocytes 0.5 thou/uL (0.11-0.59); #Neutrophils 9.3 thou/uL (1.40-6.50); %Eosinophils 0.3 % (0.0-10.0); %Lymphocytes 7.2 % (21.0-51.0); %Monocytes 4.4 % (0.0-10.0); %Neutrophils 88.2 % (42.0-75.0); Hemoglobin 15.4 g/dL (12.0-16.0); Mean Corpuscular HGB CONC 32.8 g/dL (32.0-36.0); Mean Corpuscular Hemoglobin 28.2 pg (27.0-31.0); Mean Corpuscular Volume 85.9 fL (78.0-98.0); Mean Platelet Volume 7.9 fL (7.4-10.4); Platelet Count 471 thou/uL (130-400); RBC Distribution Width 14.5 % (11.5-14.5); Red Blood Cell (RBC) Count 5.46 mill/uL (4.20-5.40); White Blood Cell (WBC) Count 10.6 thou/uL (4.8-10.8)
[2020-03-23 05:41] LABS: Anion Gap 13 mmol/L (10-20); BUN (Urea Nitrogen) 20 mg/dL (9.8-20.1); Calc. Creatinine Clearance 70 mL/min (70-130); Calcium 8.2 mg/dL (7.8-10.44); Carbon Dioxide 20 mmol/L (23-31); Chloride 108 mmol/L (98-107); Glucose 79 mg/dL (80-115); Sodium 137 mmol/L (136-145)
[2020-03-23] MEDS ORDERED: Magnesium 2 GM/50 ML 2 GM in Premix Bag 1 BAG IVPB SCH (06:30)
[2020-03-23] MEDS: FLUoxetine HCl 20 MG CAP PO SCH (07:17)
[2020-03-23] MEDS: Ascorbic Acid 500 mg Chewable Tablet PO SCH (07:18)
[2020-03-23] MEDS: Cholecalciferol (Vitamin D3) 400 UNITS TAB PO SCH (07:18)
[2020-03-23] MEDS: NIFEdipine XL 60 MG TAB PO SCH (07:18)
[2020-03-23] MEDS: Doxycycline 100 MG CAP PO SCH ×2 (07:18→21:22)
[2020-03-23] MEDS: Metoprolol Tartrate 25 MG TAB PO SCH ×2 (07:19→21:22)
[2020-03-23] MEDS: Clopidogrel Bisulfate 75 MG TAB PO SCH (07:19)
[2020-03-23] MEDS: Enoxaparin Sodium 40 MG/0.4 ML SYRINGE SC SCH ×2 (07:19→21:21)
[2020-03-23] MEDS: hydrALAZINE 25 MG TAB PO SCH ×3 (07:19→21:22)
[2020-03-23] MEDS: Dexamethasone 4 mg/ml Vial SLOW IVP SCH ×2 (07:21→21:22)
[2020-03-23] MEDS: glipiZIDE 5 MG TAB PO SCH ×3 (08:34→16:07)
[2020-03-23] MEDS: Insulin Glargine 30 UNITS in Pre-Filled Syringe 1 EACH SC SCH ×2 (08:34→21:26)
[2020-03-23] MEDS: Simvastatin 20 MG TAB PO SCH (11:10)
[2020-03-23] MEDS ORDERED: FLUoxetine HCl 20 MG CAP PO SCH (15:30)
--- NOTE | 2020-03-23 15:34 | PDOC.HOSPP ---
- Subjective Encounter Date: 03/23/20 Encounter Time: 10:30 Subjective: Patient up in bed is not eating very much. - Objective Vital Signs & Weight: Vital Signs (12 hours) Temp Pulse Resp BP Pulse Ox 03/23/20 11:27 97.5 F L 82 17 143/65 H 96 03/23/20 07:45 97.5 F L 75 17 135/67 93 L 03/23/20 04:00 98.1 F 68 18 132/64 97 03/23/20 03:31 96 Weight Admit Weight 159 lb 11.2 oz Weight 147 lb 9.6 oz Most Recent Monitor Data Heart Rate from ECG 89 NIBP 165/98 NIBP BP-Mean 104 Respiration from ECG 22 SpO2 99 I&O: 03/22/20 03/23/20 03/24/20 06:59 06:59 06:59 Intake Total 1644 870 Output Total 1467 300 Balance 177 570 Result Diagrams: 03/23/20 05:02 03/23/20 05:02 Additional Labs: Accuchecks 03/23/20 03/23/20 03/22/20 11:16 05:34 21:12 POC Glucose 111 H 95 114 H 03/22/20 16:32 POC Glucose 208 H Hospitalist ROS - Review of Systems Cardiovascular: denies: chest pain, palpitations, orthopnea, paroxysmal noc. dyspnea, edema, light headedness, other Gastrointestinal: denies: nausea, vomiting, abdominal pain, diarrhea, constipation, melena, hematochezia, other Genitourinary: denies: dysuria, frequency, incontinence, hematuria, retention, other - Medication Medications: Active Medications Generic Name Dose Route Start Last Admin Trade Name Albertq PRN Reason Stop Dose Admin Acetaminophen 650 mg 03/13/20 23:28 03/22/20 09:07 Acetaminophen 325 Mg Tab PO 650 mg Q4H PRN Administration Headache/Fever/Mild Pain (1-3) Ascorbic Acid 1,000 mg 03/14/20 09:00 03/23/20 07:18 Ascorbic Acid 500 Mg Chewable Tablet PO 1,000 mg DAILY SUKHDEEP Administration Cholecalciferol 400 units 03/14/20 09:00 03/23/20 07:18 Cholecalciferol (Vitamin D3) 400 Units Tab PO 400 units DAILY SUKHDEEP Administration Clopidogrel Bisulfate 75 mg 03/14/20 09:00 03/23/20 07:19 Clopidogrel Bisulfate 75 Mg Tab PO 75 mg DAILY SUKHDEEP Administration Dexamethasone 6 mg 03/15/20 21:00 03/23/20 07:21 Dexamethasone 4 Mg/Ml Vial SLOW IVP 6 mg BID SUKHDEEP Administration Doxycycline Hyclate 100 mg 03/17/20 21:00 03/23/20 07:18 Doxycycline 100 Mg Cap PO 03/27/20 21:01 100 mg BID SUKHDEEP Administration Enoxaparin Sodium 40 mg 03/15/20 21:00 03/23/20 07:19 Enoxaparin Sodium 40 Mg/0.4 Ml Syringe SC 40 mg BID SUKHDEEP Administration Glipizide 5 mg 03/15/20 07:30 03/23/20 08:34 Glipizide 5 Mg Tab PO Not Given [facility] Hydralazine HCl 10 mg 03/14/20 19:30 03/22/20 22:43 Hydralazine 20 Mg/Ml Vial SLOW IVP 10 mg Q4H PRN Administration SBP > 180 and HR < 70 Hydralazine HCl 25 mg 03/19/20 15:00 03/23/20 07:19 Hydralazine 25 Mg Tab PO 25 mg TID SUKHDEEP Administration Insulin Glargine 30 units/ 0.3 mls @ 0 mls/hr 03/18/20 21:00 03/22/20 22:42 Miscellaneous Medication SC 0.3 mls HS SUKHDEEP Administration Insulin Glargine 30 units/ 0.3 mls @ 0 mls/hr 03/18/20 09:00 03/23/20 08:34 Miscellaneous Medication SC Not Given [facility] [place] Insulin Human Lispro 0 units 03/13/20 23:35 03/22/20 18:29 Humalog 300 Units/3 Ml Vial SC 4 unit .MODERATE SLIDING SC PRN Administration Moderate Correctional Scale Labetalol HCl 20 mg 03/14/20 19:30 03/22/20 00:47 Labetalol Hcl 100 Mg/20 Ml Vial SLOW IVP 4 ml Q4H PRN Administration SBP > 180 and HR >/= 70 Metoprolol Tartrate 25 mg 03/14/20 09:00 03/23/20 07:19 Metoprolol Tartrate 25 Mg Tab PO 25 mg BID SUKHDEEP Administration Nifedipine 60 mg 03/15/20 09:00 03/23/20 07:18 Nifedipine Xl 60 Mg Tab PO 60 mg DAILY SUKHDEEP Administration Pantoprazole Sodium 40 mg 03/14/20 21:00 03/22/20 22:43 Pantoprazole 40 Mg Tab PO 40 mg HS SUKHDEEP Administration Simvastatin 20 mg 03/14/20 09:00 03/23/20 11:10 Simvastatin 20 Mg Tab PO 20 mg DAILY SUKHDEEP Administration Sodium Chloride 10 ml 03/19/20 09:00 03/23/20 07:21 Flush - Normal Saline 10 Ml Syringe IVF 10 ml Q12HR SUKHDEEP Administration Sodium Chloride 10 ml 03/19/20 07:00 03/21/20 22:07 Flush - Normal Saline 10 Ml Syringe IVF 10 ml PRN PRN Administration Saline Flush Tramadol HCl 50 mg 03/18/20 14:52 03/19/20 02:08 Tramadol Hcl 50 Mg Tab PO 50 mg Q6H PRN Administration Mild Pain (1-3) - Exam Neck: negative: supple, symmetric, no JVD, no thyromegaly, no lymphadenopathy, no carotid bruit, JVD Heart: negative: RRR, no murmur, no gallops, no rubs, normal peripheral pulses, irregular, diminshed peripheral pulses, murmur present, II/IV, III/IV Respiratory: negative: CTAB, no wheezes, no rales, no ronchi, normal chest expansion, no tachypnea, normal percussion, rales, rhonchi, tachypneic, wheezes Gastrointestinal: negative: soft, non-tender, non-distended, normal bowel sounds, no palpable masses, no hepatomegaly, no splenomegaly, no bruit, no guarding, no rigidity, tender to palpation, distended, diminished bowl sounds, voluntary guarding Hosp A/P - Plan (1) Pneumonia due to COVID-19 virus Code(s): U07.1 - COVID-19; J12.89 - OTHER VIRAL PNEUMONIA Status: Acute (2) Acute respiratory failure with hypoxia Code(s): J96.01 - ACUTE RESPIRATORY FAILURE WITH HYPOXIA Status: Acute (3) EDIE (acute kidney injury) Code(s): N17.9 - ACUTE KIDNEY FAILURE, UNSPECIFIED Status: Acute (4) CAD (coronary artery disease) Code(s): I25.10 - ATHSCL HEART DISEASE OF [place] CORONARY ARTERY W/O ANG PCTRS Status: Chronic Qualifiers: Coronary Disease-Associated Artery/Lesion type: bypass graft [place] vs. transplanted heart: [place] heart Associated angina: without angina Qualified Code(s): I25.810 - Atherosclerosis of coronary artery bypass graft(s) without angina pectoris (5) Diabetes Code(s): E11.9 - TYPE 2 DIABETES MELLITUS WITHOUT COMPLICATIONS Status: Chronic Qualifiers: Diabetes mellitus type: type 2 Diabetes mellitus parts counterman insulin use: without parts counterman use (6) HTN (hypertension) Code(s): I10 - ESSENTIAL (PRIMARY) HYPERTENSION Status: Chronic Qualifiers: Hypertension type: essential hypertension Qualified Code(s): I10 - Essential (primary) hypertension (7) Dehydration Code(s): E86.0 - DEHYDRATION Status: Acute - Plan renal function is getting better, will be a candidate for remdesivir if cleared by either or day 6 of symptom onset/diagnosis, is on dexamethasone, high flow O2 continue plavix, zocor, lopressor, lantus, lyrica and protonix prognosis guarded, full code, lives with her . 03/15 patient started on remdesivir patient has been called appears that patient had a mechanical fall on the she was brought into an outside clinic on the for shortness of breath. Initially they thought the shortness of breath was because of the fall possible rib fracture. However her shortness of breath worsened at this time she was brought in on the and at this time she was noted to be hypoxic and was admitted to the hospital. Patient received convalescent plasma. I will put an order in for pharmacy for remdesivir. we we will continue DVT prophylaxis. Will continue steroids. Her FiO2 currently on BiPAP is 70%. She is maintaining sats around 95%. 03/16 pt's oxygen has been reduced to 60% she is doing well on bipap. Per pulmonary pt will be put on high flow in am. will continue steroids. unable to put pt on remdesivir since pt is on bipap. 03/17 patient downgraded from BiPAP to high flow doing well so far. We will continue to monitor. She is not a candidate for remdesivir since she is on high flow. We will continue steroids DVT prophylaxis. Speech has been evaluated to see her. We will replace potassium. Continue IV fluids for now 03/18 patient continues to be on high flow. She is not eating very much. I encouraged her to eat. Continues to be on DVT prophylaxis. We will replace franky ctrolytes. 03/19 patient continues to be on high flow. She is again not eating very much and has significant dysphagia and has been coughing even on thickened liquids. We will start patient on PPN. 03/20 speech evaluated her and stated that her dysphagia has improved. will advance her diet. will continue current meds. will check electrolytes today since she had svt last night per nursing staff. 03/21 nursing staff today she has not been eating very much. Continues to be on high flow. Continue steroids and DVT prophylaxis. Patient's called yesterday and updated 03/22 patient's Chao catheter was removed yesterday. She has been having difficulty time urinating. Have encouraged her to get up to the bedside commode. She still not eating very much I have been encouraging her to eat more. We will continue steroids and DVT prophylaxis. Asked the nursing staff to wean her oxygen on high flow. We will stop D5 water her sodium has improved 03/23 patient had a bowel movement yesterday has been urinating. However she continues not to eat very much. She appears very scared and has not been moving very much. Her high flow has been downgraded to 4 L on nasal cannula. I encouraged her to eat. We will increase her Prozac to 40 mg daily. I will start her on PPN.
[2020-03-23] MEDS ORDERED: D5W-AA 4.25% with LYTES 1,000 ML IV SCH (16:00)
[2020-03-24] MEDS: hydrALAZINE 20 MG/ML VIAL SLOW IVP PRN (04:17)
[2020-03-24] MEDS: HumaLOG 300 UNITS/3 ML VIAL SC PRN ×3 (05:01→22:22)
[2020-03-24 05:24] LABS: #Lymphocytes 0.6 thou/uL (1.20-3.40); #Monocytes 0.6 thou/uL (0.11-0.59); #Neutrophils 8.8 thou/uL (1.40-6.50); %Eosinophils 0.1 % (0.0-10.0); %Lymphocytes 6.3 % (21.0-51.0); %Monocytes 6.1 % (0.0-10.0); %Neutrophils 87.5 % (42.0-75.0); Hemoglobin 15.4 g/dL (12.0-16.0); Mean Corpuscular HGB CONC 34.1 g/dL (32.0-36.0); Mean Corpuscular Hemoglobin 29.2 pg (27.0-31.0); Mean Corpuscular Volume 85.7 fL (78.0-98.0); Platelet Count 453 thou/uL (130-400); RBC Distribution Width 14.4 % (11.5-14.5); Red Blood Cell (RBC) Count 5.26 mill/uL (4.20-5.40); White Blood Cell (WBC) Count 10.1 thou/uL (4.8-10.8)
[2020-03-24 05:46] LABS: Anion Gap 13 mmol/L (10-20); BUN (Urea Nitrogen) 25 mg/dL (9.8-20.1); Calc. Creatinine Clearance 54 mL/min (70-130); Calcium 8.4 mg/dL (7.8-10.44); Carbon Dioxide 21 mmol/L (23-31); Chloride 106 mmol/L (98-107); Glucose 410 mg/dL (80-115); Potassium 3.7 mmol/L (3.5-5.1); Sodium 136 mmol/L (136-145)
[2020-03-24] MEDS ORDERED: Magnesium 2 GM/50 ML 2 GM in Premix Bag 1 BAG IVPB SCH (08:00)
[2020-03-24] MEDS: hydrALAZINE 25 MG TAB PO SCH ×3 (08:12→21:12)
[2020-03-24] MEDS: NIFEdipine XL 60 MG TAB PO SCH (08:12)
[2020-03-24] MEDS: glipiZIDE 5 MG TAB PO SCH ×2 (08:12→16:20)
[2020-03-24] MEDS: Simvastatin 20 MG TAB PO SCH (08:12)
[2020-03-24] MEDS: FLUoxetine HCl 20 MG CAP PO SCH (08:12)
[2020-03-24] MEDS: Doxycycline 100 MG CAP PO SCH ×2 (08:13→21:11)
[2020-03-24] MEDS: Cholecalciferol (Vitamin D3) 400 UNITS TAB PO SCH (08:13)
[2020-03-24] MEDS: Enoxaparin Sodium 40 MG/0.4 ML SYRINGE SC SCH ×2 (08:13→21:11)
[2020-03-24] MEDS: Metoprolol Tartrate 25 MG TAB PO SCH ×2 (08:13→21:12)
[2020-03-24] MEDS: Clopidogrel Bisulfate 75 MG TAB PO SCH (08:13)
[2020-03-24] MEDS: Dexamethasone 4 mg/ml Vial SLOW IVP SCH (08:15)
[2020-03-24] MEDS: Ascorbic Acid 500 mg Chewable Tablet PO SCH (08:30)
[2020-03-24] MEDS ORDERED: traMADol HCl 50 MG TAB PO PRN (09:58)
[2020-03-24] MEDS ORDERED: hydrALAZINE 25 MG TAB PO SCH (10:00)
[2020-03-24] MEDS: Insulin Glargine 30 UNITS in Pre-Filled Syringe 1 EACH SC SCH ×2 (10:21→21:10)
--- NOTE | 2020-03-24 11:10 | PRG ---
DATE OF SERVICE: 03/24/2020 SUBJECTIVE: Sandra Colbert day 11 in the hospital, foote positive pneumonia. She is doing better. OBJECTIVE: VITAL SIGNS: Temperature , pulse 84, respiratory rate 18, sats 100% on 2 L, blood pressure . CHEST: No wheezing. No crackles. CARDIAC: Normal S1, S2. LABORATORY DATA: Labs are unremarkable. ASSESSMENT: Foote positive pneumonia with respiratory failure, severe deconditioning. P.o. prednisone. Baseline chest x-ray. Eventually placement. Review the x-ray. Job ID: [id number]
--- NOTE | 2020-03-24 11:17 | RAD ---
Chest one view HISTORY: Pneumonia. Follow-up. COMPARISON: 03/21/2020. FINDINGS: Cardiac silhouette is magnified by projection. Pulmonary vasculature are unremarkable. Mediastinum is midline with postoperative changes. Ill-defined patchy areas of groundglass infiltrate projecting over each lower lobe are less dense sandra n on the prior exam. Upper lobes are clear. No lobar consolidation or evidence of pneumothorax. Old left rib fractures. IMPRESSION : Interval radiographic improvement in bibasilar infiltrates. No new abnormalities are demonstrated.
[2020-03-24 14:34] VITALS: BMI 26.2
[2020-03-24] MEDS ORDERED: Sodium Acetate 2 mEq/ml 20 MEQ, Sodium Chloride 15 MEQ, Potassium ACETATE 10 MEQ, Potas... IV SCH (14:45)
--- NOTE | 2020-03-24 15:07 | PDOC.HOSPP ---
- Subjective Encounter Date: 03/24/20 Encounter Time: 11:45 Subjective: Patient up in bed no complaints. Not eating. - Objective Vital Signs & Weight: Vital Signs (12 hours) Temp Pulse Resp BP Pulse Ox 03/24/20 12:00 98.6 F 78 16 152/77 H 94 L 03/24/20 08:12 100 03/24/20 07:57 98.5 F 84 18 193/93 H 100 03/24/20 04:52 19 173/79 H 94 L 03/24/20 04:17 75 03/24/20 03:24 97.5 F L 75 18 202/87 H 93 L Weight Admit Weight 159 lb 11.2 oz Weight 147 lb 11.2 oz Most Recent Monitor Data Heart Rate from ECG 89 NIBP 165/98 NIBP BP-Mean 104 Respiration from ECG 22 SpO2 99 I&O: 03/23/20 03/24/20 03/25/20 06:59 06:59 06:59 Intake Total 870 1190 Output Total 300 875 Balance 570 315 Result Diagrams: 03/24/20 05:12 03/24/20 05:12 Additional Labs: Accuchecks 03/24/20 03/24/20 03/23/20 10:45 04:57 21:23 POC Glucose 228 H 371 H 270 H 03/23/20 03/22/20 16:01 05:20 POC Glucose 207 H 209 H Hospitalist ROS - Review of Systems Cardiovascular: denies: chest pain, palpitations, orthopnea, paroxysmal noc. dyspnea, edema, light headedness, other Gastrointestinal: denies: nausea, vomiting, abdominal pain, diarrhea, constipation, melena, hematochezia, other Genitourinary: denies: dysuria, frequency, incontinence, hematuria, retention, other - Medication Medications: Active Medications Generic Name Dose Route Start Last Admin Trade Name Freq PRN Reason Stop Dose Admin Acetaminophen 650 mg 03/13/20 23:28 03/22/20 09:07 Acetaminophen 325 Mg Tab PO 650 mg Q4H PRN Administration Headache/Fever/Mild Pain (1-3) Ascorbic Acid 1,000 mg 03/14/20 09:00 03/24/20 08:30 Ascorbic Acid 500 Mg Chewable Tablet PO 1,000 mg DAILY SUKHDEEP Administration Cholecalciferol 400 units 03/14/20 09:00 03/24/20 08:13 Cholecalciferol (Vitamin D3) 400 Units Tab PO 400 units DAILY SUKHDEEP Administration Clopidogrel Bisulfate 75 mg 03/14/20 09:00 03/24/20 08:13 Clopidogrel Bisulfate 75 Mg Tab PO 75 mg DAILY SUKHDEEP Administration Doxycycline Hyclate 100 mg 03/17/20 21:00 03/24/20 08:13 Doxycycline 100 Mg Cap PO 03/27/20 21:01 100 mg BID SUKHDEEP Administration Enoxaparin Sodium 40 mg 03/15/20 21:00 03/24/20 08:13 Enoxaparin Sodium 40 Mg/0.4 Ml Syringe SC 40 mg BID SUKHDEEP Administration Fluoxetine HCl 40 mg 03/24/20 09:00 03/24/20 08:12 Fluoxetine Hcl 20 Mg Cap PO 40 mg DAILY SUKHDEEP Administration Glipizide 5 mg 03/15/20 07:30 03/24/20 08:12 Glipizide 5 Mg Tab PO 5 mg BID-AC SUKHDEEP Administration Hydralazine HCl 10 mg 03/14/20 19:30 03/24/20 04:17 Hydralazine 20 Mg/Ml Vial SLOW IVP 10 mg Q4H PRN Administration SBP > 180 and HR < 70 Hydralazine HCl 25 mg 03/19/20 15:00 03/24/20 08:12 Hydralazine 25 Mg Tab PO 25 mg TID SUKHDEEP Administration Insulin Glargine 30 units/ 0.3 mls @ 0 mls/hr 03/18/20 21:00 03/23/20 21:26 Miscellaneous Medication SC 0.3 mls HS SUKHDEEP Administration Insulin Glargine 30 units/ 0.3 mls @ 0 mls/hr 03/18/20 09:00 03/24/20 10:21 Miscellaneous Medication SC 0.3 mls QAM SUKHDEEP Administration Insulin Human Lispro 0 units 03/13/20 23:35 03/24/20 05:01 Humalog 300 Units/3 Ml Vial SC 10 unit .MODERATE SLIDING SC PRN Administration Moderate Correctional Scale Labetalol HCl 20 mg 03/14/20 19:30 03/22/20 00:47 Labetalol Hcl 100 Mg/20 Ml Vial SLOW IVP 4 ml Q4H PRN Administration SBP > 180 and HR >/= 70 Metoprolol Tartrate 25 mg 03/14/20 09:00 03/24/20 08:13 Metoprolol Tartrate 25 Mg Tab PO 25 mg BID SUKHDEEP Administration Nifedipine 60 mg 03/15/20 09:00 03/24/20 08:12 Nifedipine Xl 60 Mg Tab PO 60 mg DAILY SUKHDEEP Administration Pantoprazole Sodium 40 mg 03/14/20 21:00 03/23/20 21:23 Pantoprazole 40 Mg Tab PO 40 mg HS SUKHDEEP Administration Simvastatin 20 mg 03/14/20 09:00 03/24/20 08:12 Simvastatin 20 Mg Tab PO 20 mg DAILY SUKHDEEP Administration Sodium Chloride 10 ml 03/19/20 09:00 03/24/20 08:13 Flush - Normal Saline 10 Ml Syringe IVF 10 ml Q12HR SUKHDEEP Administration Sodium Chloride 10 ml 03/19/20 07:00 03/24/20 04:18 Flush - Normal Saline 10 Ml Syringe IVF 10 ml PRN PRN Administration Saline Flush Tramadol HCl 50 mg 03/18/20 14:52 03/19/20 02:08 Tramadol Hcl 50 Mg Tab PO 50 mg Q6H PRN Administration Mild Pain (1-3) - Exam Neck: negative: supple, symmetric, no JVD, no thyromegaly, no lymphadenopathy, no carotid bruit, JVD Heart: negative: RRR, no murmur, no gallops, no rubs, normal peripheral pulses, irregular, diminshed peripheral pulses, murmur present, II/IV, III/IV Respiratory: negative: CTAB, no wheezes, no rales, no ronchi, normal chest expansion, no tachypnea, normal percussion, rales, rhonchi, tachypneic, wheezes Hosp A/P - Plan (1) Pneumonia due to COVID-19 virus Code(s): U07.1 - COVID-19; J12.89 - OTHER VIRAL PNEUMONIA Status: Acute (2) Acute respiratory failure with hypoxia Code(s): J96.01 - ACUTE RESPIRATORY FAILURE WITH HYPOXIA Status: Acute (3) EDIE (acute kidney injury) Code(s): N17.9 - ACUTE KIDNEY FAILURE, UNSPECIFIED Status: Acute (4) CAD (coronary artery disease) Code(s): I25.10 - ATHSCL HEART DISEASE OF [place] CORONARY ARTERY W/O ANG PCTRS Status: Chronic Qualifiers: Coronary Disease-Associated Artery/Lesion type: bypass graft [place] vs. transplanted heart: [place] heart Associated angina: without angina Qualified Code(s): I25.810 - Atherosclerosis of coronary artery bypass graft(s) without angina pectoris (5) Diabetes Code(s): E11.9 - TYPE 2 DIABETES MELLITUS WITHOUT COMPLICATIONS Status: Chronic Qualifiers: Diabetes mellitus type: type 2 Diabetes mellitus usp insulin use: without usp use (6) HTN (hypertension) Code(s): I10 - ESSENTIAL (PRIMARY) HYPERTENSION Status: Chronic Qualifiers: Hypertension type: essential hypertension Qualified Code(s): I10 - Essential (primary) hypertension (7) Dehydration Code(s): E86.0 - DEHYDRATION Status: Acute - Plan renal function is getting better, will be a candidate for remdesivir if cleared by either or day 6 of symptom onset/diagnosis, is on dexamethasone, high flow O2 continue plavix, zocor, lopressor, lantus, lyrica and protonix prognosis guarded, full code, lives with her . 03/15 patient started on remdesivir patient has been called appears that patient had a mechanical fall on the she was brought into an outside clinic on the for shortness of breath. Initially they thought the shortness of breath was because of the fall possible rib fracture. However her shortness of breath worsened at this time she was brought in on the and at this time she was noted to be hypoxic and was admitted to the hospital. Patient received convalescent plasma. I will put an order in for pharmacy for remdesivir. we we will continue DVT prophylaxis. Will continue steroids. Her FiO2 currently on BiPAP is 70%. She is maintaining sats around 95%. 03/16 pt's oxygen has been reduced to 60% she is doing well on bipap. Per pulmonary pt will be put on high flow in am. will continue steroids. unable to put pt on remdesivir since pt is on bipap. 03/17 patient downgraded from BiPAP to high flow doing well so far. We will continue to monitor. She is not a candidate for remdesivir since she is on high flow. We will continue steroids DVT prophylaxis. Speech has been evaluated to see her. We will replace potassium. Continue IV fluids for now 03/18 patient continues to be on high flow. She is not eating very much. I encouraged her to eat. Continues to be on DVT prophylaxis. We will replace electrolytes. 03/19 patient continues to be on high flow. She is again not eating very much and has significant dysphagia and has been coughing even on thickened liquids. We will start patient on PPN. 03/20 speech evaluated her and stated that her dysphagia has improved. will advance her diet. will continue current meds. will check electrolytes today s jose she had svt last night per nursing staff. 03/21 nursing staff today she has not been eating very much. Continues to be on high flow. Continue steroids and DVT prophylaxis. Patient's called yesterday and updated 03/22 patient's Chao catheter was removed yesterday. She has been having difficulty time urinating. Have encouraged her to get up to the bedside commode. She still not eating very much I have been encouraging her to eat more. We will continue steroids and DVT prophylaxis. Asked the nursing staff to wean her oxygen on high flow. We will stop D5 water her sodium has improved 03/23 patient had a bowel movement yesterday has been urinating. However she continues not to eat very much. She appears very scared and has not been moving very much. Her high flow has been downgraded to 4 L on nasal cannula. I encouraged her to eat. We will increase her Prozac to 40 mg daily. I will start her on PPN. 03/24 patient continues to not eat very much. Started on PPN. On 3 to 4 L nasal cannula. Case management for swing bed placement.
[2020-03-24] MEDS ORDERED: Non-Formulary Item 1 EACH (Insulin Glargine,Hum.Rec.Anlog [Lantus Solostar] 100 UNIT/ML P SQ SCH (21:00)
[2020-03-24] MEDS ORDERED: Insulin Glargine 20 UNITS in Pre-Filled Syringe 1 EACH SC SCH (21:00)
[2020-03-24] MEDS: Atorvastatin Calcium 20 MG TAB PO SCH (21:11)
[2020-03-24] MEDS: Cilostazol 100 MG TAB PO SCH (21:11)
[2020-03-24] MEDS: Acetaminophen 325 MG TAB PO PRN (21:45)
[2020-03-25] MEDS ORDERED: Magnesium 2 GM/50 ML 2 GM in Premix Bag 1 BAG IVPB SCH (07:00)
[2020-03-25] MEDS ORDERED: AA 4.25 %/CALCIUM/LYTES/D5W 2,000 ML IV SCH (08:30)
[2020-03-25] MEDS ORDERED: Clopidogrel Bisulfate 75 MG TAB PO SCH (09:00)
[2020-03-25] MEDS: Doxycycline 100 MG CAP PO SCH ×2 (09:25→21:12)
[2020-03-25] MEDS: FLUoxetine HCl 20 MG CAP PO SCH (09:25)
[2020-03-25] MEDS: Enoxaparin Sodium 40 MG/0.4 ML SYRINGE SC SCH ×2 (09:26→21:12)
[2020-03-25] MEDS: Furosemide 20 MG TAB PO SCH (09:26)
[2020-03-25] MEDS: Clopidogrel Bisulfate 75 MG TAB PO SCH (09:27)
[2020-03-25] MEDS: glipiZIDE 5 MG TAB PO SCH ×2 (09:27→16:21)
[2020-03-25] MEDS: Ubidecarenone 50 MG CAP PO SCH (09:27)
[2020-03-25] MEDS: predniSONE 20 MG TAB PO SCH (09:27)
[2020-03-25] MEDS: NIFEdipine XL 60 MG TAB PO SCH (09:27)
[2020-03-25] MEDS: Simvastatin 20 MG TAB PO SCH (09:27)
[2020-03-25] MEDS: Aspirin 81 mg Enteric Coated Tablet PO SCH (09:27)
[2020-03-25] MEDS: Cholecalciferol (Vitamin D3) 400 UNITS TAB PO SCH (09:27)
[2020-03-25] MEDS: hydrALAZINE 25 MG TAB PO SCH ×3 (09:28→21:12)
[2020-03-25] MEDS: Metoprolol Tartrate 25 MG TAB PO SCH ×2 (09:28→21:12)
[2020-03-25] MEDS: Ascorbic Acid 500 mg Chewable Tablet PO SCH (09:28)
[2020-03-25] MEDS: Insulin Glargine 30 UNITS in Pre-Filled Syringe 1 EACH SC SCH ×2 (09:35→21:09)
[2020-03-25] MEDS: Cilostazol 100 MG TAB PO SCH ×2 (09:35→21:10)
--- NOTE | 2020-03-25 11:47 | PRG ---
DATE OF SERVICE: 03/25/2020 SUBJECTIVE: Sandra Colbert is a 70-year-old female, day #12. OBJECTIVE: VITAL SIGNS: Temperature 96, pulse 70, respiration 18, saturations 96% on 2 L, blood pressure 90/65. CHEST: No wheezing, no crackles. CARDIAC: Normal S1, S2. ABDOMEN: No mass. IMAGING: X-ray shows much improvement in bilateral infiltrates. ASSESSMENT: Respiratory failure, foote positive pneumonia, improved. PLAN: She can probably be transitioned to home care. She may require low-flow O2. She is on p.o. prednisone, which I may taper over 2 weeks. Pulmonary is going to follow at a distance. Job ID: [id number]
[2020-03-25] MEDS: HumaLOG 300 UNITS/3 ML VIAL SC PRN ×3 (12:54→21:15)
[2020-03-25] MEDS: Acetaminophen 325 MG TAB PO PRN (13:17)
--- NOTE | 2020-03-25 14:11 | PDOC.HOSPP ---
- Subjective Encounter Date: 03/25/20 Encounter Time: 10:30 Subjective: Patient up in bed no complaints - Objective Vital Signs & Weight: Vital Signs (12 hours) Temp Pulse Resp BP Pulse Ox 03/25/20 04:00 97.6 F 77 18 90/65 96 Weight Admit Weight 159 lb 11.2 oz Weight 147 lb 11.2 oz Most Recent Monitor Data Heart Rate from ECG 89 NIBP 165/98 NIBP BP-Mean 104 Respiration from ECG 22 SpO2 99 I&O: 03/24/20 03/25/20 03/26/20 06:59 06:59 06:59 Intake Total 1190 Output Total 875 Balance 315 Result Diagrams: 03/24/20 05:12 03/24/20 05:12 Additional Labs: Accuchecks 03/25/20 03/25/20 03/25/20 11:46 09:55 05:11 POC Glucose 172 H 89 106 H 03/24/20 03/24/20 20:29 16:49 POC Glucose 333 H 457 H Hospitalist ROS - Review of Systems Cardiovascular: denies: chest pain, palpitations, orthopnea, paroxysmal noc. dyspnea, edema, light headedness, other Gastrointestinal: denies: nausea, vomiting, abdominal pain, diarrhea, co nstipation, melena, hematochezia, other Genitourinary: denies: dysuria, frequency, incontinence, hematuria, retention, other - Medication Medications: Active Medications Generic Name Dose Route Start Last Admin Trade Name Freq PRN Reason Stop Dose Admin Acetaminophen 650 mg 03/13/20 23:28 03/25/20 13:17 Acetaminophen 325 Mg Tab PO 650 mg Q4H PRN Administration Headache/Fever/Mild Pain (1-3) Ascorbic Acid 1,000 mg 03/14/20 09:00 03/25/20 09:28 Ascorbic Acid 500 Mg Chewable Tablet PO 1,000 mg DAILY SUKHDEEP Administration Aspirin 81 mg 03/25/20 09:00 03/25/20 09:27 Aspirin 81 Mg Enteric Coated Tablet PO 81 mg DAILY SUKHDEEP Administration Atorvastatin Calcium 20 mg 03/24/20 21:00 03/24/20 21:11 Atorvastatin Calcium 20 Mg Tab PO 20 mg HS SUKHDEEP Administration Cholecalciferol 400 units 03/14/20 09:00 03/25/20 09:27 Cholecalciferol (Vitamin D3) 400 Units Tab PO 400 units DAILY SUKHDEEP Administration Cilostazol 50 mg 03/24/20 21:00 03/25/20 09:35 Cilostazol 100 Mg Tab PO 50 mg BID SUKHDEEP Administration Clopidogrel Bisulfate 75 mg 03/14/20 09:00 03/25/20 09:27 Clopidogrel Bisulfate 75 Mg Tab PO 75 mg DAILY SUKHDEEP Administration Coenzyme Q10 50 mg 03/25/20 09:00 03/25/20 09:27 Ubidecarenone 50 Mg Cap PO 50 mg DAILY SUKHDEEP Administration Doxycycline Hyclate 100 mg 03/17/20 21:00 03/25/20 09:25 Doxycycline 100 Mg Cap PO 03/27/20 21:01 100 mg BID SUKHDEEP Administration Enoxaparin Sodium 40 mg 03/15/20 21:00 03/25/20 09:26 Enoxaparin Sodium 40 Mg/0.4 Ml Syringe SC 40 mg BID SUKHDEEP Administration Fluoxetine HCl 40 mg 03/24/20 09:00 03/25/20 09:25 Fluoxetine Hcl 20 Mg Cap PO 40 mg DAILY SUKHDEEP Administration Furosemide 20 mg 03/25/20 09:00 03/25/20 09:26 Furosemide 20 Mg Tab PO 20 mg DAILY SUKHDEEP Administration Glipizide 5 mg 03/15/20 07:30 03/25/20 09:27 Glipizide 5 Mg Tab PO 5 mg BID-AC SUKHDEEP Administration Hydralazine HCl 10 mg 03/14/20 19:30 03/24/20 04:17 Hydralazine 20 Mg/Ml Vial SLOW IVP 10 mg Q4H PRN Administration SBP > 180 and HR < 70 Hydralazine HCl 25 mg 03/19/20 15:00 03/25/20 09:28 Hydralazine 25 Mg Tab PO 25 mg TID SUKHDEEP Administration Insulin Glargine 30 units/ 0.3 mls @ 0 mls/hr 03/18/20 21:00 03/24/20 21:10 Miscellaneous Medication SC 0.3 mls HS SUKHDEEP Administration Insulin Glargine 30 units/ 0.3 mls @ 0 mls/hr 03/18/20 09:00 03/25/20 09:35 Miscellaneous Medication SC 0.3 mls QAM SUKHDEEP Administration Insulin Human Lispro 0 units 03/13/20 23:35 03/25/20 12:54 Humalog 300 Units/3 Ml Vial SC 2 unit .MODERATE SLIDING SC PRN Administration Moderate Correctional Scale Labetalol HCl 20 mg 03/14/20 19:30 03/22/20 00:47 Labetalol Hcl 100 Mg/20 Ml Vial SLOW IVP 4 ml Q4H PRN Administration SBP > 180 and HR >/= 70 Metoprolol Tartrate 25 mg 03/14/20 09:00 03/25/20 09:28 Metoprolol Tartrate 25 Mg Tab PO 25 mg BID SUKHDEEP Administration Nifedipine 60 mg 03/15/20 09:00 03/25/20 09:27 Nifedipine Xl 60 Mg Tab PO 60 mg DAILY SUKHDEEP Administration Pantoprazole Sodium 40 mg 03/14/20 21:00 03/24/20 21:12 Pantoprazole 40 Mg Tab PO 40 mg HS SUKHDEEP Administration Pantoprazole Sodium 40 mg 03/25/20 09:00 03/25/20 09:27 Pantoprazole 40 Mg Tab PO 40 mg DAILY SUKHDEEP Administration Prednisone 40 mg 03/25/20 08:00 03/25/20 09:27 Prednisone 20 Mg Tab PO 40 mg QA- SUKHDEEP Administration Simvastatin 20 mg 03/14/20 09:00 03/25/20 09:27 Simvastatin 20 Mg Tab PO 20 mg DAILY SUKHDEEP Administration Sodium Chloride 10 ml 03/19/20 09:00 03/25/20 09:29 Flush - Normal Saline 10 Ml Syringe IVF 10 ml Q12HR SUKHDEEP Administration Sodium Chloride 10 ml 03/19/20 07:00 03/24/20 04:18 Flush - Normal Saline 10 Ml Syringe IVF 10 ml PRN PRN Administration Saline Flush Tramadol HCl 50 mg 03/18/20 14:52 03/19/20 02:08 Tramadol Hcl 50 Mg Tab PO 50 mg Q6H PRN Administration Mild Pain (1-3) - Exam Heart: negative: RRR, no murmur, no gallops, no rubs, normal peripheral pulses, irregular, diminshed peripheral pulses, murmur present, II/IV, III/IV Respiratory: negative: CTAB, no wheezes, no rales, no ronchi, normal chest expansion, no tachypnea, normal percussion, rales, rhonchi, tachypneic, wheezes Gastrointestinal: negative: soft, non-tender, non-distended, normal bowel sounds, no palpable masses, no hepatomegaly, no splenomegaly, no bruit, no guarding, no rigidity, tender to palpation, distended, diminished bowl sounds, voluntary guarding Extremities: negative: no cyanosis, no clubbing, no edema, 1+ LE edema, 2+ LE edema, clubbing Hosp A/P - Plan (1) Pneumonia due to COVID-19 virus Code(s): U07.1 - COVID-19; J12.89 - OTHER VIRAL PNEUMONIA Status: Acute (2) Acute respiratory failure with hypoxia Code(s): J96.01 - ACUTE RESPIRATORY FAILURE WITH HYPOXIA Status: Acute (3) EDIE (acute kidney injury) Code(s): N17.9 - ACUTE KIDNEY FAILURE, UNSPECIFIED Status: Acute (4) CAD (coronary artery disease) Code(s): I25.10 - ATHSCL HEART DISEASE OF [place] CORONARY ARTERY W/O ANG PCTRS Status: Chronic Qualifiers: Coronary Disease-Associated Artery/Lesion type: bypass graft [place] vs. transplanted heart: [place] heart Associated angina: without angina Qualified Code(s): I25.810 - Atherosclerosis of coronary artery bypass graft(s) without angina pectoris (5) Diabetes Code(s): E11.9 - TYPE 2 DIABETES MELLITUS WITHOUT COMPLICATIONS Status: Chronic Qualifiers: Diabetes mellitus type: type 2 Diabetes mellitus penitentiary insulin use: without longitudinal float operator use (6) HTN (hypertension) Code(s): I10 - ESSENTIAL (PRIMARY) HYPERTENSION Status: Chronic Qualifiers: Hypertension type: essential hypertension Qualified Code(s): I10 - Essential (primary) hypertension (7) Dehydration Code(s): E86.0 - DEHYDRATION Status: Acute - Plan renal function is getting better, will be a candidate for remdesivir if cleared by either or day 6 of symptom onset/diagnosis, is on dexamethasone, high flow O2 continue plavix, zocor, lopressor, lantus, lyrica and protonix prognosis guarded, full code, lives with her . 1/ patient started on remdesivir patient has been called appears that patient had a mechanical fall on the she was brought into an outside clinic on the for shortness of breath. Initially they thought the shortness of breath was because of the fall possible rib fracture. However her shortness of breath worsened at this time she was brought in on the 31st and at this time she was noted to be hypoxic and was admitted to the hospital. Patient received convale scent plasma. I will put an order in for pharmacy for remdesivir. we we will continue DVT prophylaxis. Will continue steroids. Her FiO2 currently on BiPAP is 70%. She is maintaining sats around 95%. 03/16 pt's oxygen has been reduced to 60% she is doing well on bipap. Per pulmonary pt will be put on high flow in am. will continue steroids. unable to put pt on remdesivir since pt is on bipap. 03/17 patient downgraded from BiPAP to high flow doing well so far. We will continue to monitor. She is not a candidate for remdesivir since she is on high flow. We will continue steroids DVT prophylaxis. Speech has been evaluated to see her. We will replace potassium. Continue IV fluids for now 03/18 patient continues to be on high flow. She is not eating very much. I encouraged her to eat. Continues to be on DVT prophylaxis. We will replace electrolytes. 03/19 patient continues to be on high flow. She is again not eating very much and has significant dysphagia and has been coughing even on thickened liquids. We will start patient on PPN. 03/20 speech evaluated her and stated that her dysphagia has improved. will advance her diet. will continue current meds. will check electrolytes today since she had svt last night per nursing staff. 03/21 nursing staff today she has not been eating very much. Continues to be on high flow. Continue steroids and DVT prophylaxis. Patient's called yesterday and updated 03/22 patient's Chao catheter was removed yesterday. She has been having difficulty time urinating. Have encouraged her to get up to the bedside commode. She still not eating very much I have been encouraging her to eat more. We will continue steroids and DVT prophylaxis. Asked the nursing staff to wean her oxygen on high flow. We will stop D5 water her sodium has improved 03/23 patient had a bowel movement yesterday has been urinating. However she con tinues not to eat very much. She appears very scared and has not been moving very much. Her high flow has been downgraded to 4 L on nasal cannula. I encouraged her to eat. We will increase her Prozac to 40 mg daily. I will start her on PPN. 03/24 patient continues to not eat very much. Started on PPN. On 3 to 4 L nasal cannula. Case management for swing bed placement. 03/25 patient is trying to eat doing well. Currently on 2-1/2 L. She will require swing bed placement. Okay to be discharged. Medically stable.
[2020-03-25] MEDS: Atorvastatin Calcium 20 MG TAB PO SCH (21:13)
[2020-03-26] MEDS: Insulin Glargine 30 UNITS in Pre-Filled Syringe 1 EACH SC SCH ×2 (10:20→11:05)
[2020-03-26] MEDS: Enoxaparin Sodium 40 MG/0.4 ML SYRINGE SC SCH (10:21)
[2020-03-26] MEDS: hydrALAZINE 25 MG TAB PO SCH ×2 (10:21→14:31)
[2020-03-26] MEDS: Ascorbic Acid 500 mg Chewable Tablet PO SCH (10:21)
[2020-03-26] MEDS: glipiZIDE 5 MG TAB PO SCH ×2 (10:22→16:55)
[2020-03-26] MEDS: Aspirin 81 mg Enteric Coated Tablet PO SCH (10:22)
[2020-03-26] MEDS: Cilostazol 100 MG TAB PO SCH (10:22)
[2020-03-26] MEDS: Cholecalciferol (Vitamin D3) 400 UNITS TAB PO SCH (10:22)
[2020-03-26] MEDS: Ubidecarenone 50 MG CAP PO SCH (10:23)
[2020-03-26] MEDS: NIFEdipine XL 60 MG TAB PO SCH (10:23)
[2020-03-26] MEDS: predniSONE 20 MG TAB PO SCH (10:23)
[2020-03-26] MEDS: Furosemide 20 MG TAB PO SCH (10:23)
[2020-03-26] MEDS: Clopidogrel Bisulfate 75 MG TAB PO SCH (10:23)
[2020-03-26] MEDS: Doxycycline 100 MG CAP PO SCH (10:23)
[2020-03-26] MEDS: Metoprolol Tartrate 25 MG TAB PO SCH (10:24)
[2020-03-26] MEDS: FLUoxetine HCl 20 MG CAP PO SCH (10:24)
[2020-03-26] MEDS: Labetalol HCl 100 MG/20 ML VIAL SLOW IVP PRN (16:32)
[2020-03-26] MEDS: Acetaminophen 325 MG TAB PO PRN (16:36)
[2020-03-26 16:38] VITALS: TEMP 97.5
[2020-03-26 16:39] VITALS: BP 213/108
[2020-03-26] MEDS: HumaLOG 300 UNITS/3 ML VIAL SC PRN (16:57)
== END 2020-03-26 18:40 | disposition swing bed (61) | DRG 177 ==
LOC: ERS 20:59 → ERHOLD 21:48 → 2SW 03-14 18:07 → CCU 03-15 01:34 → 2SE 03-17 09:50
PROVIDERS: ADMIT Internal Medicine; ATTEND Internal Medicine
PROC: 8E0ZXY6 Isolation (ICD-10-PCS; 2020-03-13)
PROC: 0T9B70Z Drainage of Bladder with Drainage Device, Via Natural or Artificial Opening (ICD-10-PCS; 2020-03-13)
PROC: XW13325 Transfusion of Convalescent Plasma (Nonautologous) into Peripheral Vein, Percutaneous Approach, New Technology Group 5 (ICD-10-PCS; principal; 2020-03-15)
PROC: 5A09457 Assistance with Respiratory Ventilation, 24-96 Consecutive Hours, Continuous Positive Airway Pressure (ICD-10-PCS; 2020-03-15)
DX: U07.1 COVID-19 (principal); J12.82 Pneumonia due to coronavirus disease 2019; J96.01 Acute respiratory failure with hypoxia; S22.32XA Fracture of one rib, left side, initial encounter for closed fracture; N17.9 Acute kidney failure, unspecified; I25.10 Atherosclerotic heart disease of native coronary artery without angina pectoris; F17.290 Nicotine dependence, other tobacco product, uncomplicated; G89.4 Chronic pain syndrome; E11.51 Type 2 diabetes mellitus with diabetic peripheral angiopathy without gangrene; W18.30XA Fall on same level, unspecified, initial encounter; R26.9 Unspecified abnormalities of gait and mobility; E86.0 Dehydration; R13.10 Dysphagia, unspecified; E66.9 Obesity, unspecified; Z68.26 Body mass index [BMI] 26.0-26.9, adult; I25.2 Old myocardial infarction; Z95.1 Presence of aortocoronary bypass graft; Z28.21 Immunization not carried out because of patient refusal; Z79.899 Other long term (current) drug therapy; Z90.49 Acquired absence of other specified parts of digestive tract; Z90.710 Acquired absence of both cervix and uterus; Z79.4 Long term (current) use of insulin; Z79.82 Long term (current) use of aspirin; Z79.02 Long term (current) use of antithrombotics/antiplatelets
CPT/HCPCS: 36415; 36416; 36430; 36600; 71045; 80048; 80053; 82728; 82805; 83605; 83735; 84100; 84443; 85007; 85025; 85027; 86140; 86850; 86900; 86901; 93005; 94660; 94760; 96372; 96374; J0360; J1100; J1650; J1815; J2001; J3475; J3480; J7512; P9017

== ENCOUNTER 2020-09-26 23:05 | Inpatient (IN) | payer MEDICARE ==
[~2020-09-26 23:05] MED LIST: Iopamidol-370 76% 500 ML 1 ML ONE
[2020-09-26 23:37] LABS: #Eosinphils 0.1 thou/uL (0.0-0.7); #Lymphocytes 0.8 thou/uL (1.20-3.40); #Monocytes 0.2 thou/uL (0.11-0.59); #Neutrophils 10.6 thou/uL (1.40-6.50); %Basophils 0.2 % (0.0-1.0); %Eosinophils 0.6 % (0.0-10.0); %Lymphocytes 6.9 % (21.0-51.0); %Monocytes 1.8 % (0.0-10.0); %Neutrophils 90.4 % (42.0-75.0); Hemoglobin 14.2 g/dL (12.0-16.0); Mean Corpuscular HGB CONC 34.3 g/dL (32.0-36.0); Mean Corpuscular Hemoglobin 30.4 pg (27.0-31.0); Mean Corpuscular Volume 88.4 fL (78.0-98.0); Mean Platelet Volume 8.7 fL (7.4-10.4); Platelet Count 194 thou/uL (130-400); RBC Distribution Width 14.2 % (11.5-14.5); Red Blood Cell (RBC) Count 4.69 mill/uL (4.20-5.40); White Blood Cell (WBC) Count 11.7 thou/uL (4.8-10.8)
[2020-09-26] MEDS ORDERED: Cefepime 2 GM VIAL ONE (23:38)
[2020-09-26 23:46] LABS: Bilirubin Negative (Negative); Blood, Urine Negative (Negative); Clarity Clear (Clear); Glucose, Urine (Dipstick) 500 mg/dL (Negative); Ketone, Urine Negative (Negative); Leukocyte Negative Leu/uL (Negative); Nitrite Negative (Negative); Protein, Urine (Dipstick) Negative (Neg-Trace); Specific Gravity, Urine 1.014 (1.002-1.036); Urobilinogen Normal mg/dL (Less than 2)
[2020-09-26 23:58] LABS: ALT (SGPT) 27 U/L (8-55); AST (SGOT) 37 U/L (5-34); Albumin 3.4 g/dL (3.4-4.8); Alkaline Phosphatase 142 U/L (40-110); Anion Gap 12 mmol/L (10-20); BUN (Urea Nitrogen) 22 mg/dL (9.8-20.1); Bilirubin, Total 0.5 mg/dL (0.2-1.2); Calc. Creatinine Clearance 0 mL/min (70-130); Calcium 8.6 mg/dL (7.8-10.44); Carbon Dioxide 26 mmol/L (23-31); Chloride 103 mmol/L (98-107); Glucose 210 mg/dL (80-115); Potassium 3.5 mmol/L (3.5-5.1); Protein, Total 6.4 g/dL (5.8-8.1); Sodium 137 mmol/L (136-145)
[2020-09-27 00:22] LABS: SARS-CoV-2 NAA Rapid Test Not Detected (NotDetected)
[2020-09-27] MEDS ORDERED: Vancomycin 1 GM/200 ML BAG ONE (00:58)
[2020-09-27] MEDS ORDERED: Sodium Chloride 0.9% 1,000 ML IV SCH ×2 (04:30→04:41)
[2020-09-27] MEDS ORDERED: Ondansetron PF 4 MG/2 ML Vial IVP PRN (04:37)
[2020-09-27] MEDS ORDERED: Dextrose 50% Abboject 50 ML SYRINGE SLOW IVP PRN (04:42)
[2020-09-27] MEDS ORDERED: Dextrose 5% in Water 1,000 ML IV PRN (04:42)
[2020-09-27] MEDS ORDERED: hydrALAZINE 20 MG/ML VIAL SLOW IVP PRN (05:10)
[2020-09-27 05:18] LABS: Hemoglobin 12.9 g/dL (12.0-16.0); Mean Corpuscular HGB CONC 34.1 g/dL (32.0-36.0); Mean Corpuscular Hemoglobin 30.3 pg (27.0-31.0); Mean Platelet Volume 8.6 fL (7.4-10.4); Platelet Count 177 thou/uL (130-400); RBC Distribution Width 14.3 % (11.5-14.5); Red Blood Cell (RBC) Count 4.24 mill/uL (4.20-5.40); White Blood Cell (WBC) Count 19.2 thou/uL (4.8-10.8)
[2020-09-27 05:26] VITALS: BMI 30.6
[2020-09-27 05:29] LABS: Anion Gap 13 mmol/L (10-20); BUN (Urea Nitrogen) 18 mg/dL (9.8-20.1); Calc. Creatinine Clearance 48 mL/min (70-130); Calcium 8.2 mg/dL (7.8-10.44); Carbon Dioxide 20 mmol/L (23-31); Chloride 105 mmol/L (98-107); Glucose 310 mg/dL (80-115); Potassium 4.1 mmol/L (3.5-5.1); Sodium 134 mmol/L (136-145)
[2020-09-27 05:51] LABS: Band 34 % (5-11); Lymphocytes 11 % (21-51); MDiff Complete? YES; Monocytes 4 % (0-10); Neutrophil 51 % (42-75)
[2020-09-27 06:16] LABS: Amphetamine Not Detected (NotDetected); Barbiturates Screen Not Detected (NotDetected); Benzodiazepine Screen Not Detected (NotDetected); Cocaine Metabolite Screen Not Detected (NotDetected); Methadone Not Detected (NotDetected); Methamphetamine Not Detected (NotDetected); Opiate Screen Not Detected (NotDetected); Oxycodone Screen Not Detected (NotDetected); Phencyclidine (PCP) Not Detected (NotDetected); THC/Cannabinoid Screen Not Detected (NotDetected); Tricyclic Screen Not Detected (NotDetected)
[2020-09-27] MEDS: methylPREDNISolone Sod Succ 40 MG VIAL IVP SCH ×3 (06:39→21:31)
[2020-09-27] MEDS: HumaLOG 300 UNITS/3 ML VIAL SC PRN ×4 (06:41→20:22)
[2020-09-27] MEDS ORDERED: Cefepime 2 GM in Sodium Chloride 0.9% 100 ML IVPB SCH (08:00)
[2020-09-27] MEDS: Aspirin 81 mg Enteric Coated Tablet PO SCH (08:29)
[2020-09-27] MEDS: Clopidogrel Bisulfate 75 MG TAB PO SCH (08:29)
[2020-09-27] MEDS: Enoxaparin Sodium 30 MG/0.3 ML SYRINGE SC SCH (08:30)
[2020-09-27] MEDS ORDERED: Lantus 1000 UNITS/10 ML VIAL SC SCH (09:00)
[2020-09-27] MEDS ORDERED: Cefepime 1 GM in Sodium Chloride 0.9% 100 ML IVPB SCH (12:00)
[2020-09-27] MEDS ORDERED: Vancomycin 1 GM in Premix Bag 1 BAG IVPB SCH (13:00)
[2020-09-27] MEDS: Acetaminophen 325 MG TAB PO PRN ×2 (13:34→22:42)
[2020-09-27] MEDS: Cefepime 1 GM in Sodium Chloride 0.9% 100 ML IVPB SCH (20:21)
[2020-09-27] MEDS ORDERED: Pregabalin 50 MG CAP PO SCH (22:45)
[2020-09-28] MEDS ORDERED: Vancomycin 1 GM in Premix Bag 1 BAG IVPB SCH ×2 (01:00→13:00)
[2020-09-28] MEDS: methylPREDNISolone Sod Succ 40 MG VIAL IVP SCH (05:38)
[2020-09-28] MEDS: HumaLOG 300 UNITS/3 ML VIAL SC PRN ×4 (05:58→20:37)
[2020-09-28] MEDS ORDERED: Dextrose 5% in Water 1,000 ML IV PRN (07:39)
[2020-09-28] MEDS ORDERED: Dextrose 50% Abboject 50 ML SYRINGE SLOW IVP PRN (07:39)
[2020-09-28 08:31] LABS: #Lymphocytes 0.9 thou/uL (1.20-3.40); #Monocytes 0.3 thou/uL (0.11-0.59); #Neutrophils 11.6 thou/uL (1.40-6.50); %Eosinophils 0.1 % (0.0-10.0); %Lymphocytes 7.3 % (21.0-51.0); %Monocytes 2.3 % (0.0-10.0); %Neutrophils 90.3 % (42.0-75.0); Hemoglobin 13.7 g/dL (12.0-16.0); Mean Corpuscular HGB CONC 32.5 g/dL (32.0-36.0); Mean Corpuscular Volume 89.3 fL (78.0-98.0); Mean Platelet Volume 8.9 fL (7.4-10.4); Platelet Count 191 thou/uL (130-400); RBC Distribution Width 14.4 % (11.5-14.5); Red Blood Cell (RBC) Count 4.72 mill/uL (4.20-5.40); White Blood Cell (WBC) Count 12.8 thou/uL (4.8-10.8)
[2020-09-28 08:47] LABS: Anion Gap 13 mmol/L (10-20); BUN (Urea Nitrogen) 24 mg/dL (9.8-20.1); Calc. Creatinine Clearance 48 mL/min (70-130); Calcium 9.4 mg/dL (7.8-10.44); Carbon Dioxide 24 mmol/L (23-31); Chloride 102 mmol/L (98-107); Glucose 441 mg/dL (80-115); Potassium 4.4 mmol/L (3.5-5.1); Sodium 135 mmol/L (136-145)
[2020-09-28] MEDS: Cefepime 1 GM in Sodium Chloride 0.9% 100 ML IVPB SCH ×2 (08:47→20:33)
[2020-09-28] MEDS: Aspirin 81 mg Enteric Coated Tablet PO SCH (08:47)
[2020-09-28] MEDS: Enoxaparin Sodium 30 MG/0.3 ML SYRINGE SC SCH (08:47)
[2020-09-28] MEDS: Clopidogrel Bisulfate 75 MG TAB PO SCH (08:48)
[2020-09-28] MEDS: FLUoxetine HCl 20 MG CAP PO SCH (08:48)
[2020-09-28] MEDS: traMADol HCl 50 MG TAB PO SCH ×2 (08:48→20:35)
[2020-09-28] MEDS: Cholecalciferol (Vitamin D3) 400 UNITS TAB PO SCH (08:48)
[2020-09-28] MEDS: Lantus 1000 UNITS/10 ML VIAL SC SCH ×2 (08:50→20:37)
[2020-09-28] MEDS ORDERED: Pregabalin 50 MG CAP PO SCH (09:00)
[2020-09-28 12:21] LABS: Vancomycin, Trough 9.4 ug/mL
[2020-09-28] MEDS: hydrALAZINE 25 MG TAB PO PRN (14:19)
[2020-09-28] MEDS: Vancomycin HCl 750 MG in Sodium Chloride 0.9% 250 ML 250 ML IVPB SCH (15:22)
[2020-09-28] MEDS: Atorvastatin Calcium 20 MG TAB PO SCH (20:33)
[2020-09-28] MEDS: Pregabalin 50 MG CAP PO SCH (20:33)
[2020-09-28] MEDS: Acetaminophen 325 MG TAB PO PRN (20:39)
[2020-09-29] MEDS: hydrALAZINE 25 MG TAB PO PRN (05:13)
[2020-09-29] MEDS: HumaLOG 300 UNITS/3 ML VIAL SC PRN ×3 (05:13→17:18)
[2020-09-29 06:03] LABS: #Eosinphils 0.1 thou/uL (0.0-0.7); #Lymphocytes 2.2 thou/uL (1.20-3.40); #Monocytes 0.6 thou/uL (0.11-0.59); #Neutrophils 7.7 thou/uL (1.40-6.50); %Basophils 0.1 % (0.0-1.0); %Eosinophils 0.7 % (0.0-10.0); %Lymphocytes 20.6 % (21.0-51.0); %Monocytes 5.4 % (0.0-10.0); %Neutrophils 73.3 % (42.0-75.0); Hemoglobin 13.8 g/dL (12.0-16.0); Mean Corpuscular HGB CONC 33.9 g/dL (32.0-36.0); Mean Corpuscular Volume 88.4 fL (78.0-98.0); Mean Platelet Volume 8.5 fL (7.4-10.4); Platelet Count 204 thou/uL (130-400); RBC Distribution Width 14.3 % (11.5-14.5); Red Blood Cell (RBC) Count 4.58 mill/uL (4.20-5.40); White Blood Cell (WBC) Count 10.5 thou/uL (4.8-10.8)
[2020-09-29 06:08] LABS: Anion Gap 10 mmol/L (10-20); BUN (Urea Nitrogen) 23 mg/dL (9.8-20.1); Calc. Creatinine Clearance 59 mL/min (70-130); Calcium 9.1 mg/dL (7.8-10.44); Carbon Dioxide 26 mmol/L (23-31); Chloride 104 mmol/L (98-107); Glucose 198 mg/dL (80-115); Potassium 3.2 mmol/L (3.5-5.1); Sodium 137 mmol/L (136-145)
[2020-09-29] MEDS ORDERED: Potassium Chloride 20 MEQ TAB PO SCH (08:00)
[2020-09-29] MEDS: Cefepime 1 GM in Sodium Chloride 0.9% 100 ML IVPB SCH ×2 (08:06→20:58)
[2020-09-29] MEDS: Enoxaparin Sodium 30 MG/0.3 ML SYRINGE SC SCH (08:06)
[2020-09-29] MEDS: FLUoxetine HCl 20 MG CAP PO SCH (08:06)
[2020-09-29] MEDS: Amlodipine 5 MG TAB PO SCH (08:06)
[2020-09-29] MEDS: Cholecalciferol (Vitamin D3) 400 UNITS TAB PO SCH (08:07)
[2020-09-29] MEDS: Aspirin 81 mg Enteric Coated Tablet PO SCH (08:07)
[2020-09-29] MEDS: Clopidogrel Bisulfate 75 MG TAB PO SCH (08:07)
[2020-09-29] MEDS: Furosemide 20 MG TAB PO SCH (08:07)
[2020-09-29] MEDS: traMADol HCl 50 MG TAB PO SCH ×2 (08:07→20:57)
[2020-09-29] MEDS: Lantus 1000 UNITS/10 ML VIAL SC SCH ×2 (08:08→20:59)
[2020-09-29] MEDS: Vancomycin HCl 750 MG in Sodium Chloride 0.9% 250 ML 250 ML IVPB SCH (12:40)
[2020-09-29] MEDS: Saccharomyces boulardii 250 MG CAP PO SCH (17:16)
[2020-09-29] MEDS: Calcium Carbonate 500 MG ChewTAB PO PRN (20:54)
[2020-09-29] MEDS: Pregabalin 50 MG CAP PO SCH (20:56)
[2020-09-29] MEDS: Atorvastatin Calcium 20 MG TAB PO SCH (20:56)
[2020-09-30 06:01] LABS: #Eosinphils 0.3 thou/uL (0.0-0.7); #Lymphocytes 1.8 thou/uL (1.20-3.40); #Monocytes 0.7 thou/uL (0.11-0.59); #Neutrophils 3.4 thou/uL (1.40-6.50); %Basophils 0.2 % (0.0-1.0); %Eosinophils 4.5 % (0.0-10.0); %Lymphocytes 29.9 % (21.0-51.0); %Monocytes 10.7 % (0.0-10.0); %Neutrophils 54.7 % (42.0-75.0); Hemoglobin 13.5 g/dL (12.0-16.0); Mean Corpuscular HGB CONC 33.9 g/dL (32.0-36.0); Mean Corpuscular Hemoglobin 30.1 pg (27.0-31.0); Mean Corpuscular Volume 88.9 fL (78.0-98.0); Mean Platelet Volume 8.5 fL (7.4-10.4); Platelet Count 207 thou/uL (130-400); RBC Distribution Width 14.3 % (11.5-14.5); Red Blood Cell (RBC) Count 4.48 mill/uL (4.20-5.40); White Blood Cell (WBC) Count 6.1 thou/uL (4.8-10.8)
[2020-09-30 06:32] LABS: Anion Gap 11 mmol/L (10-20); BUN (Urea Nitrogen) 25 mg/dL (9.8-20.1); Calc. Creatinine Clearance 45 mL/min (70-130); Calcium 8.5 mg/dL (7.8-10.44); Carbon Dioxide 26 mmol/L (23-31); Chloride 105 mmol/L (98-107); Glucose 131 mg/dL (80-115); Potassium 4.1 mmol/L (3.5-5.1); Sodium 138 mmol/L (136-145)
[2020-09-30] MEDS ORDERED: Lantus 1000 UNITS/10 ML VIAL SC SCH (07:30)
[2020-09-30] MEDS: Cefepime 1 GM in Sodium Chloride 0.9% 100 ML IVPB SCH ×2 (08:44→21:20)
[2020-09-30] MEDS: Cholecalciferol (Vitamin D3) 400 UNITS TAB PO SCH (08:45)
[2020-09-30] MEDS: traMADol HCl 50 MG TAB PO SCH ×2 (08:45→21:21)
[2020-09-30] MEDS: Amlodipine 5 MG TAB PO SCH (08:45)
[2020-09-30] MEDS: FLUoxetine HCl 20 MG CAP PO SCH (08:45)
[2020-09-30] MEDS: Clopidogrel Bisulfate 75 MG TAB PO SCH (08:45)
[2020-09-30] MEDS: Aspirin 81 mg Enteric Coated Tablet PO SCH (08:45)
[2020-09-30] MEDS: Furosemide 20 MG TAB PO SCH (08:45)
[2020-09-30] MEDS: Enoxaparin Sodium 30 MG/0.3 ML SYRINGE SC SCH (08:46)
[2020-09-30] MEDS: Lantus 1000 UNITS/10 ML VIAL SC SCH ×2 (08:47→22:01)
[2020-09-30] MEDS: HumaLOG 300 UNITS/3 ML VIAL SC PRN ×2 (12:20→17:03)
[2020-09-30] MEDS ORDERED: Lactated Ringer's 1,000 ML IV SCH (16:00)
[2020-09-30] MEDS: Saccharomyces boulardii 250 MG CAP PO SCH (17:02)
[2020-09-30] MEDS: Calcium Carbonate 500 MG ChewTAB PO PRN (18:54)
[2020-09-30] MEDS ORDERED: Metoprolol Tartrate 5 MG/5 ML VIAL IVP PRN (19:42)
[2020-09-30] MEDS ORDERED: Sodium Chloride 0.9% 1,000 ML IV SCH (20:00)
[2020-09-30 21:03] LABS: Troponin I Less than 0.010 ng/mL (< 0.028)
[2020-09-30 21:17] LABS: Free T4 (Free Thyroxine) 1.02 ng/dL (0.70-1.48)
[2020-09-30] MEDS: Atorvastatin Calcium 20 MG TAB PO SCH (21:21)
[2020-09-30] MEDS: Pregabalin 50 MG CAP PO SCH (21:22)
[2020-09-30] MEDS ORDERED: Diltiazem 125 MG in Sodium Chloride 0.9% 100 ML IVPB SCH (22:00)
[2020-09-30] MEDS ORDERED: Metoprolol Tartrate 5 MG/5 ML VIAL IVP SCH (22:15)
[2020-10-01 06:18] LABS: Troponin I Less than 0.010 ng/mL (< 0.028)
[2020-10-01] MEDS: Cholecalciferol (Vitamin D3) 400 UNITS TAB PO SCH (07:57)
[2020-10-01] MEDS: Amlodipine 5 MG TAB PO SCH (07:58)
[2020-10-01] MEDS: Furosemide 20 MG TAB PO SCH (07:58)
[2020-10-01] MEDS: Clopidogrel Bisulfate 75 MG TAB PO SCH (07:58)
[2020-10-01] MEDS: Aspirin 81 mg Enteric Coated Tablet PO SCH (07:58)
[2020-10-01] MEDS: FLUoxetine HCl 20 MG CAP PO SCH (07:58)
[2020-10-01] MEDS: traMADol HCl 50 MG TAB PO SCH (07:59)
[2020-10-01] MEDS: Lantus 1000 UNITS/10 ML VIAL SC SCH (08:00)
[2020-10-01] MEDS: Cefepime 1 GM in Sodium Chloride 0.9% 100 ML IVPB SCH (08:05)
[2020-10-01] MEDS: Enoxaparin Sodium 30 MG/0.3 ML SYRINGE SC SCH (08:11)
[2020-10-01 09:32] LABS: Troponin I Less than 0.010 ng/mL (< 0.028)
[2020-10-01 11:16] VITALS: BP 143/70; TEMP 99.1
[2020-10-01] MEDS ORDERED: Apixaban 5 MG TAB PO SCH (21:00)
== END 2020-10-01 15:10 | disposition home or self-care (01) | DRG 871 ==
LOC: ERS 23:05 → T4-A 09-27 02:50 → 2NO 09-30 21:16
PROVIDERS: ADMIT Internal Medicine; ATTEND Internal Medicine
DX: A41.50 Gram-negative sepsis, unspecified (principal); J96.01 Acute respiratory failure with hypoxia; G93.41 Metabolic encephalopathy; J44.1 Chronic obstructive pulmonary disease with (acute) exacerbation; N17.9 Acute kidney failure, unspecified; I25.810 Atherosclerosis of coronary artery bypass graft(s) without angina pectoris; L03.116 Cellulitis of left lower limb; L03.115 Cellulitis of right lower limb; I10 Essential (primary) hypertension; E11.51 Type 2 diabetes mellitus with diabetic peripheral angiopathy without gangrene; E11.65 Type 2 diabetes mellitus with hyperglycemia; R19.7 Diarrhea, unspecified; E86.0 Dehydration; E66.9 Obesity, unspecified; I48.0 Paroxysmal atrial fibrillation; Z68.30 Body mass index [BMI] 30.0-30.9, adult; Z86.16 Personal history of COVID-19; Z79.82 Long term (current) use of aspirin; Z79.899 Other long term (current) drug therapy; Z79.4 Long term (current) use of insulin; Z95.5 Presence of coronary angioplasty implant and graft; Z79.51 Long term (current) use of inhaled steroids; Z95.1 Presence of aortocoronary bypass graft; Z90.49 Acquired absence of other specified parts of digestive tract; Z90.710 Acquired absence of both cervix and uterus
CPT/HCPCS: 36415; 36416; 51701; 71045; 74177; 80048; 80053; 80202; 80306; 81003; 82140; 83605; 83880; 84439; 84443; 84481; 84484; 85025; 86850; 86900; 86901; 87040; 87045; 87046; 87077; 87086; 87149; 87186; 87324; 87427; 87449; 90471; 90732; 93005; 93010; 93306; 93970; 96365; 96367; G0009; J0360; J0692; J1650; J1815; J2405; J2920; J3370; J3490; J7050; J7620; Q9967; U0002; U0005

== ENCOUNTER 2022-07-07 17:08 | Inpatient (IN) | payer MEDICARE ==
[2022-07-07 18:36] LABS: Actual Bicarbonate (HCO3v) 19.3 mEq/L (22-28); Base Excess -5.5 mEq/L (-2.0 to +3.0); Calcium, Ionized (venous) 1.03 mmol/L (1.16-1.32); Chloride (VBG) 105 mmol/L (98-106); Hematocrit-VBG 45 % (36.0-47.0); Hemoglobin (Hb) 15.2 g/dL (11.7-16.1); Potassium (VBG) 4.22 mmol/L (3.70-5.30); Sodium 139.5 mmol/L (133-146); pH (venous) 7.351 (7.32-7.43)
[2022-07-07 18:39] LABS: #Lymphocytes 1.6 thou/uL (1.20-3.40); #Monocytes 0.4 thou/uL (0.11-0.59); %Basophils 0.5 % (0.0-1.0); %Eosinophils 0.2 % (0.0-10.0); %Lymphocytes 17.5 % (21.0-51.0); %Monocytes 3.9 % (0.0-10.0); %Neutrophils 77.9 % (42.0-75.0); Hemoglobin 14.9 g/dL (12.0-16.0); Mean Corpuscular HGB CONC 36.2 g/dL (32.0-36.0); Mean Corpuscular Hemoglobin 31.1 pg (27.0-31.0); Mean Platelet Volume 8.6 fL (7.4-10.4); Platelet Count 199 10x3/uL (130-400); RBC Distribution Width 13.8 % (11.5-14.5); Red Blood Cell (RBC) Count 4.79 mill/uL (4.20-5.40)
[2022-07-07 19:08] LABS: ALT (SGPT) 34 U/L (8-55); AST (SGOT) 24 U/L (5-34); Albumin 3.5 g/dL (3.4-4.8); Alkaline Phosphatase 151 U/L (40-110); Anion Gap 18 mmol/L (10-20); BUN (Urea Nitrogen) 20 mg/dL (9.8-20.1); Bilirubin, Total 0.4 mg/dL (0.2-1.2); Calc. Creatinine Clearance 0 mL/min (70-130); Calcium 8.6 mg/dL (7.8-10.44); Carbon Dioxide 18 mmol/L (23-31); Chloride 107 mmol/L (98-107); Estimated GFR 37; Globulin 3.2 g/dL (2.4-3.5); Glucose 300 mg/dL (80-115); Potassium 4.2 mmol/L (3.5-5.1); Protein, Total 6.7 g/dL (5.8-8.1); Sodium 139 mmol/L (136-145)
[2022-07-07] MEDS ORDERED: Morphine 4 MG/ML VIAL ONE (19:46)
[2022-07-07] MEDS ORDERED: hydrALAZINE 20 MG/ML VIAL ONE (19:48)
[2022-07-07] MEDS ORDERED: Ondansetron PF 4 MG/2 ML Vial IVP PRN (19:55)
[2022-07-07] MEDS ORDERED: Electrolyte Replacement Protocol 1 EACH IVPB SCH (19:56)
[2022-07-07] MEDS ORDERED: Sodium Chloride 0.9% 1,000 ML IV PRN ×4 (19:56)
[2022-07-07] MEDS ORDERED: D5 1/2 NS w/20 mEq KCL 1,000 ML IV PRN (19:56)
[2022-07-07] MEDS ORDERED: Dextrose 5 %-0.45 % NaCl 1,000 ML IV PRN (19:56)
[2022-07-07] MEDS ORDERED: NS 0.9% w/ 20 MEQ KCL 1,000 ML IV PRN (19:56)
[2022-07-07] MEDS ORDERED: Dextrose 50% Abboject 50 ML SYRINGE SLOW IVP PRN (19:56)
[2022-07-07] MEDS ORDERED: NS 0.9% w/ 20 MEQ KCL 1,000 ML/1,000 ML BAG IV PRN (20:00)
[2022-07-07] MEDS ORDERED: HUMULIN R 100 UNITS in Sodium Chloride 0.9% 100 ML IVPB SCH (20:00)
[2022-07-07 21:31] LABS: Troponin I Less than 0.010 ng/mL (< 0.028)
[2022-07-07] MEDS ORDERED: Dextrose 50% Abboject 50 ML SYRINGE ONE (21:36)
[2022-07-07 22:32] LABS: Calcium 8.3 mg/dL (7.8-10.44); Chloride 113 mmol/L (98-107); Glucose 176 mg/dL (80-115); Potassium 4.4 mmol/L (3.5-5.1); Sodium 138 mmol/L (136-145)
[2022-07-07 22:34] LABS: Anion Gap 20 mmol/L (10-20)
[2022-07-07 22:36] LABS: Calc. Creatinine Clearance 0 mL/min (70-130); Estimated GFR 46
[2022-07-07 22:37] LABS: BUN (Urea Nitrogen) 17 mg/dL (9.8-20.1)
[2022-07-07 22:47] LABS: Carbon Dioxide 9 mmol/L (23-31)
[2022-07-07] MEDS: hydrALAZINE 20 MG/ML VIAL SLOW IVP PRN (22:57)
[2022-07-07 23:15] LABS: Magnesium 1.5 mg/dL (1.6-2.6); Phosphorus 2.3 mg/dL (2.3-4.7)
[2022-07-07] MEDS ORDERED: Magnesium 2 GM/50 ML(in water) 2 GM in Premix Bag 1 BAG IVPB SCH (23:30)
[2022-07-07] MEDS: Metoclopramide HCl 10 MG/2 ML VIAL IVP PRN (23:47)
[2022-07-08 00:24] LABS: Anion Gap 18 mmol/L (10-20); BUN (Urea Nitrogen) 15 mg/dL (9.8-20.1); Calc. Creatinine Clearance 50 mL/min (70-130); Calcium 8.6 mg/dL (7.8-10.44); Carbon Dioxide 14 mmol/L (23-31); Chloride 109 mmol/L (98-107); Estimated GFR 50; Glucose 265 mg/dL (80-115); Potassium 3.8 mmol/L (3.5-5.1); Sodium 137 mmol/L (136-145)
[2022-07-08 01:48] LABS: Anion Gap 18 mmol/L (10-20); BUN (Urea Nitrogen) 15 mg/dL (9.8-20.1); Calc. Creatinine Clearance 48 mL/min (70-130); Calcium 8.6 mg/dL (7.8-10.44); Carbon Dioxide 15 mmol/L (23-31); Chloride 108 mmol/L (98-107); Estimated GFR 47; Glucose 317 mg/dL (80-115); Potassium 3.7 mmol/L (3.5-5.1); Sodium 137 mmol/L (136-145)
[2022-07-08] MEDS: NS 0.9% w/ 20 MEQ KCL 1,000 ML IV PRN ×2 (02:08→04:18)
[2022-07-08] MEDS ORDERED: Labetalol HCl 100 MG/20 ML VIAL SLOW IVP SCH (02:15)
[2022-07-08] MEDS: Apixaban 2.5 MG TAB PO SCH ×3 (02:17→20:34)
[2022-07-08] MEDS: Atorvastatin Calcium 20 MG TAB PO SCH ×2 (02:17→20:34)
[2022-07-08] MEDS: hydrALAZINE 20 MG/ML VIAL SLOW IVP PRN ×2 (04:17→08:40)
[2022-07-08 04:35] LABS: Anion Gap 14 mmol/L (10-20); BUN (Urea Nitrogen) 14 mg/dL (9.8-20.1); Calc. Creatinine Clearance 51 mL/min (70-130); Calcium 8.3 mg/dL (7.8-10.44); Carbon Dioxide 14 mmol/L (23-31); Chloride 113 mmol/L (98-107); Estimated GFR 51; Glucose 202 mg/dL (80-115); Potassium 3.9 mmol/L (3.5-5.1); Sodium 137 mmol/L (136-145)
[2022-07-08 04:36] LABS: Magnesium 2.1 mg/dL (1.6-2.6)
[2022-07-08] MEDS ORDERED: Magnesium 2 GM/50 ML(in water) 2 GM in Premix Bag 1 BAG IVPB SCH (05:45)
[2022-07-08 08:48] LABS: Anion Gap 11 mmol/L (10-20); BUN (Urea Nitrogen) 12 mg/dL (9.8-20.1); Calc. Creatinine Clearance 47 mL/min (70-130); Calcium 8.7 mg/dL (7.8-10.44); Carbon Dioxide 18 mmol/L (23-31); Chloride 111 mmol/L (98-107); Estimated GFR 49; Glucose 198 mg/dL (80-115); Potassium 3.7 mmol/L (3.5-5.1); Sodium 136 mmol/L (136-145)
[2022-07-08] MEDS ORDERED: Dextrose 5% in Water 1,000 ML IV PRN (09:00)
[2022-07-08] MEDS ORDERED: Dextrose 50% Abboject 50 ML SYRINGE IVP PRN (09:00)
[2022-07-08] MEDS: FLUoxetine HCl 20 MG CAP PO SCH (10:03)
[2022-07-08] MEDS: Famotidine 20 MG TAB PO SCH (10:06)
[2022-07-08] MEDS: Clopidogrel Bisulfate 75 MG TAB PO SCH (10:07)
[2022-07-08] MEDS: Insulin Glargine 30 UNITS/0.3 ML VIAL SC SCH (10:08)
[2022-07-08] MEDS ORDERED: Morphine 2 MG/ML VIAL SLOW IVP SCH (12:30)
[2022-07-08] MEDS ORDERED: Lisinopril 10 MG TAB PO SCH (12:45)
[2022-07-08] MEDS: Acetaminophen 325 MG TAB PO PRN ×2 (12:47→20:48)
[2022-07-08] MEDS: HumaLOG 300 UNITS/3 ML VIAL SC PRN ×2 (13:26→17:15)
[2022-07-08] MEDS ORDERED: cloNIDine 0.1 MG TAB PO SCH (13:30)
[2022-07-08 14:56] VITALS: BMI 26.1
[2022-07-08 14:56] LABS: Anion Gap 16 mmol/L (10-20); BUN (Urea Nitrogen) 12 mg/dL (9.8-20.1); Calc. Creatinine Clearance 45 mL/min (70-130); Calcium 8.8 mg/dL (7.8-10.44); Carbon Dioxide 15 mmol/L (23-31); Chloride 108 mmol/L (98-107); Estimated GFR 46; Glucose 363 mg/dL (80-115); Potassium 4.1 mmol/L (3.5-5.1); Sodium 135 mmol/L (136-145)
[2022-07-08] MEDS: cefTRIAXone\\ROCEPHIN 2 GM in Sodium Chloride 0.9% 100 ML IVPB SCH (17:19)
[2022-07-08] MEDS: cloNIDine 0.1 MG TAB PO SCH (20:34)
[2022-07-09 04:03] LABS: #Eosinphils 0.1 thou/uL (0.0-0.7); #Lymphocytes 1.7 thou/uL (1.20-3.40); #Monocytes 0.5 thou/uL (0.11-0.59); #Neutrophils 5.9 thou/uL (1.40-6.50); %Basophils 0.5 % (0.0-1.0); %Eosinophils 1.3 % (0.0-10.0); %Lymphocytes 20.8 % (21.0-51.0); %Monocytes 6.3 % (0.0-10.0); %Neutrophils 71.1 % (42.0-75.0); Hemoglobin 14.4 g/dL (12.0-16.0); Mean Corpuscular HGB CONC 35.2 g/dL (32.0-36.0); Mean Corpuscular Hemoglobin 30.8 pg (27.0-31.0); Mean Corpuscular Volume 87.5 fl (78.0-98.0); Mean Platelet Volume 8.7 fL (7.4-10.4); Platelet Count 192 10x3/uL (130-400); RBC Distribution Width 14.5 % (11.5-14.5); Red Blood Cell (RBC) Count 4.67 mill/uL (4.20-5.40); White Blood Cell (WBC) Count 8.3 10x3/uL (4.8-10.8)
[2022-07-09 04:23] LABS: Anion Gap 13 mmol/L (10-20); BUN (Urea Nitrogen) 14 mg/dL (9.8-20.1); Calc. Creatinine Clearance 42 mL/min (70-130); Calcium 9.1 mg/dL (7.8-10.44); Carbon Dioxide 18 mmol/L (23-31); Chloride 111 mmol/L (98-107); Estimated GFR 43; Glucose 216 mg/dL (80-115); Potassium 3.5 mmol/L (3.5-5.1); Sodium 138 mmol/L (136-145)
[2022-07-09] MEDS: hydrALAZINE 20 MG/ML VIAL SLOW IVP PRN ×2 (04:27→09:14)
[2022-07-09] MEDS: Acetaminophen 325 MG TAB PO PRN ×3 (04:28→17:19)
[2022-07-09] MEDS: HumaLOG 300 UNITS/3 ML VIAL SC PRN ×3 (04:28→12:38)
[2022-07-09] MEDS ORDERED: Labetalol HCl 100 MG/20 ML VIAL SLOW IVP SCH (05:15)
[2022-07-09] MEDS: Clopidogrel Bisulfate 75 MG TAB PO SCH (09:09)
[2022-07-09] MEDS: Famotidine 20 MG TAB PO SCH (09:09)
[2022-07-09] MEDS: cloNIDine 0.1 MG TAB PO SCH ×3 (09:10→21:11)
[2022-07-09] MEDS: Insulin Glargine 30 UNITS/0.3 ML VIAL SC SCH (09:10)
[2022-07-09] MEDS: Lisinopril 10 MG TAB PO SCH (09:14)
[2022-07-09] MEDS: Apixaban 2.5 MG TAB PO SCH ×2 (09:14→21:11)
[2022-07-09] MEDS: FLUoxetine HCl 20 MG CAP PO SCH (09:20)
[2022-07-09] MEDS: Carvedilol 3.125 MG TAB PO SCH ×2 (09:50→17:19)
[2022-07-09] MEDS: Sodium Chloride 0.9% 1,000 ML IV SCH (09:53)
[2022-07-09] MEDS ORDERED: diphenhydrAMINE 25 MG CAP PO SCH (10:30)
[2022-07-09] MEDS: Metoclopramide HCl 10 MG/2 ML VIAL IVP PRN (17:19)
[2022-07-09] MEDS: cefTRIAXone\\ROCEPHIN 2 GM in Sodium Chloride 0.9% 100 ML IVPB SCH (17:19)
[2022-07-09] MEDS: Atorvastatin Calcium 20 MG TAB PO SCH (21:11)
[2022-07-10] MEDS: Sodium Chloride 0.9% 1,000 ML IV SCH (01:09)
[2022-07-10] MEDS ORDERED: Aspirin 81 mg Enteric Coated Tablet PO SCH (03:30)
[2022-07-10] MEDS: Acetaminophen 325 MG TAB PO PRN (03:39)
[2022-07-10] MEDS: hydrALAZINE 20 MG/ML VIAL SLOW IVP PRN (05:47)
[2022-07-10] MEDS: HumaLOG 300 UNITS/3 ML VIAL SC PRN ×4 (05:48→21:12)
[2022-07-10 07:35] LABS: #Eosinphils 0.1 thou/uL (0.0-0.7); #Lymphocytes 1.6 thou/uL (1.20-3.40); #Monocytes 0.4 thou/uL (0.11-0.59); #Neutrophils 5.2 thou/uL (1.40-6.50); %Basophils 0.5 % (0.0-1.0); %Eosinophils 1.9 % (0.0-10.0); %Lymphocytes 21.6 % (21.0-51.0); %Monocytes 4.9 % (0.0-10.0); %Neutrophils 71.1 % (42.0-75.0); Hemoglobin 13.7 g/dL (12.0-16.0); Mean Corpuscular HGB CONC 33.2 g/dL (32.0-36.0); Mean Corpuscular Hemoglobin 29.4 pg (27.0-31.0); Mean Corpuscular Volume 88.5 fl (78.0-98.0); Mean Platelet Volume 8.1 fL (7.4-10.4); Platelet Count 182 10x3/uL (130-400); RBC Distribution Width 14.5 % (11.5-14.5); Red Blood Cell (RBC) Count 4.64 mill/uL (4.20-5.40); White Blood Cell (WBC) Count 7.4 10x3/uL (4.8-10.8)
[2022-07-10 07:55] LABS: Anion Gap 12 mmol/L (10-20); BUN (Urea Nitrogen) 15 mg/dL (9.8-20.1); Calc. Creatinine Clearance 48 mL/min (70-130); Calcium 8.4 mg/dL (7.8-10.44); Carbon Dioxide 18 mmol/L (23-31); Chloride 111 mmol/L (98-107); Estimated GFR 47; Glucose 195 mg/dL (80-115); Potassium 3.2 mmol/L (3.5-5.1); Sodium 138 mmol/L (136-145)
[2022-07-10] MEDS: FLUoxetine HCl 20 MG CAP PO SCH (08:30)
[2022-07-10] MEDS: Lisinopril 10 MG TAB PO SCH (08:30)
[2022-07-10] MEDS: Clopidogrel Bisulfate 75 MG TAB PO SCH (08:30)
[2022-07-10] MEDS: Carvedilol 3.125 MG TAB PO SCH (08:30)
[2022-07-10] MEDS: cloNIDine 0.1 MG TAB PO SCH ×3 (08:30→21:10)
[2022-07-10] MEDS: Apixaban 2.5 MG TAB PO SCH ×2 (08:30→21:11)
[2022-07-10] MEDS: Famotidine 20 MG TAB PO SCH (08:30)
[2022-07-10] MEDS ORDERED: Lisinopril 10 MG TAB PO SCH (08:35)
[2022-07-10] MEDS ORDERED: Insulin Glargine 30 UNITS/0.3 ML VIAL SC SCH (09:00)
[2022-07-10] MEDS: traMADol HCl 50 MG TAB PO PRN ×2 (11:37→21:16)
[2022-07-10] MEDS ORDERED: Potassium Bicarbonate/Cit Ac 20 MEQ TAB PO SCH (11:45)
[2022-07-10] MEDS ORDERED: Pregabalin 50 MG CAP PO SCH (21:00)
[2022-07-10] MEDS: Atorvastatin Calcium 20 MG TAB PO SCH (21:11)
[2022-07-11] MEDS: HumaLOG 300 UNITS/3 ML VIAL SC PRN ×2 (06:11→08:57)
[2022-07-11 08:06] LABS: #Eosinphils 0.2 thou/uL (0.0-0.7); #Monocytes 0.6 thou/uL (0.11-0.59); #Neutrophils 4.5 thou/uL (1.40-6.50); %Basophils 0.4 % (0.0-1.0); %Eosinophils 2.6 % (0.0-10.0); %Lymphocytes 27.1 % (21.0-51.0); %Monocytes 8.3 % (0.0-10.0); %Neutrophils 61.6 % (42.0-75.0); Hemoglobin 14.1 g/dL (12.0-16.0); Mean Corpuscular Hemoglobin 30.7 pg (27.0-31.0); Mean Corpuscular Volume 87.8 fl (78.0-98.0); Mean Platelet Volume 8.6 fL (7.4-10.4); Platelet Count 197 10x3/uL (130-400); RBC Distribution Width 14.4 % (11.5-14.5); Red Blood Cell (RBC) Count 4.59 mill/uL (4.20-5.40); White Blood Cell (WBC) Count 7.3 10x3/uL (4.8-10.8)
[2022-07-11] MEDS: FLUoxetine HCl 20 MG CAP PO SCH (08:47)
[2022-07-11] MEDS: Clopidogrel Bisulfate 75 MG TAB PO SCH (08:47)
[2022-07-11] MEDS: Apixaban 2.5 MG TAB PO SCH (08:48)
[2022-07-11] MEDS: Famotidine 20 MG TAB PO SCH (08:48)
[2022-07-11 08:52] LABS: Anion Gap 13 mmol/L (10-20); BUN (Urea Nitrogen) 17 mg/dL (9.8-20.1); Calc. Creatinine Clearance 43 mL/min (70-130); Calcium 8.4 mg/dL (7.8-10.44); Carbon Dioxide 19 mmol/L (23-31); Chloride 104 mmol/L (98-107); Estimated GFR 42; Glucose 288 mg/dL (80-115); Potassium 3.3 mmol/L (3.5-5.1); Sodium 133 mmol/L (136-145)
[2022-07-11] MEDS ORDERED: Insulin NPH Human Isophane 100 UNITS/ML (10 ML VIAL) SC SCH ×2 (09:00→21:00)
[2022-07-11] MEDS ORDERED: Insulin Glargine 30 UNITS/0.3 ML VIAL SC SCH (09:00)
[2022-07-11] MEDS ORDERED: Lisinopril 20 MG TAB PO SCH (09:00)
[2022-07-11] MEDS ORDERED: cloNIDine 0.1mg/24 Hour PATCH TD SCH (09:00)
[2022-07-11 11:52] VITALS: BP 132/82; TEMP 97.5
[2022-07-17] MEDS ORDERED: cloNIDine 0.1mg/24 Hour PATCH TD SCH (09:00)
== END 2022-07-11 12:17 | disposition home or self-care (01) | DRG 638 ==
LOC: ERS 17:08 → SUATTDRO 17:08 → CCU 19:41 → T4-A 07-09 14:34
PROVIDERS: ADMIT Family Medicine; ATTEND Internal Medicine
DX: E11.10 Type 2 diabetes mellitus with ketoacidosis without coma (principal); N17.9 Acute kidney failure, unspecified; I16.0 Hypertensive urgency; E11.65 Type 2 diabetes mellitus with hyperglycemia; I25.10 Atherosclerotic heart disease of native coronary artery without angina pectoris; E11.51 Type 2 diabetes mellitus with diabetic peripheral angiopathy without gangrene; I48.91 Unspecified atrial fibrillation; Z66 Do not resuscitate; N18.30 Chronic kidney disease, stage 3 unspecified; R51.9 Headache, unspecified; E87.8 Other disorders of electrolyte and fluid balance, not elsewhere classified; E11.22 Type 2 diabetes mellitus with diabetic chronic kidney disease; I12.9 Hypertensive chronic kidney disease with stage 1 through stage 4 chronic kidney disease, or unspecified chronic kidney disease; I45.81 Long QT syndrome; F39 Unspecified mood [affective] disorder; E86.0 Dehydration; Z79.4 Long term (current) use of insulin; Z88.8 Allergy status to other drugs, medicaments and biological substances; Z79.899 Other long term (current) drug therapy; Z86.16 Personal history of COVID-19; Z90.710 Acquired absence of both cervix and uterus; Z79.82 Long term (current) use of aspirin; Z95.1 Presence of aortocoronary bypass graft; Z95.5 Presence of coronary angioplasty implant and graft; Z95.820 Peripheral vascular angioplasty status with implants and grafts; Z91.148 Patient's other noncompliance with medication regimen for other reason
CPT/HCPCS: 36415; 36416; 80048; 82010; 82805; 83036; 83735; 84100; 84145; 84484; 85025; 87086; 93005; J0360; J0696; J0780; J1815; J2270; J2272; J2765; J3475; J3480; J3490; J7050; J7999

== ENCOUNTER 2024-11-13 17:45 | Inpatient (IN) | payer MEDICARE, OTHER ==
[2024-11-13 19:35] LABS: #Basophils 0.05 10x3/uL (0.0-0.2); #Eosinophils 0.08 10x3/uL (0.0-0.7); #Monocytes 0.37 10x3/uL (0.11-0.59); #Neutrophils 6.85 10x3/uL (1.40-6.50); %Basophils 0.6 % (0.0-1.0); %Eosinophils 0.9 % (0.0-10.0); %Lymphocytes 15.0 % (21.0-51.0); %Monocytes 4.3 % (0.0-10.0); %Neutrophils 78.9 % (42.0-75.0); Hematocrit 45.0 % (36.0-47.0); Hemoglobin 14.4 g/dL (12.0-16.0); Mean Corpuscular Hemoglobin 28.0 pg (27.0-31.0); Mean Corpuscular Volume 87.4 fL (78.0-98.0); Platelet Count 212 10x3/uL (130-400); Red Blood Cell (RBC) Count 5.15 mill/uL (4.20-5.40); White Blood Cell (WBC) Count 8.68 10x3/uL (4.8-10.8)
[2024-11-13 19:46] LABS: ALT (SGPT) 48 U/L (Less than 34); AST (SGOT) 47 U/L (11-34); Albumin 3.5 g/dL (3.1-4.5); Alkaline Phosphatase 129 U/L (40-110); Anion Gap 19 mmol/L (10-20); BUN (Urea Nitrogen) 36 mg/dL (9.8-20.1); Bilirubin, Total 0.7 mg/dL (0.3-1.2); Calc. Creatinine Clearance 0 mL/min (70-130); Calcium 9.4 mg/dL (7.8-10.44); Carbon Dioxide 23 mmol/L (23-31); Chloride 102 mmol/L (98-107); Globulin 3.2 g/dL (2.4-3.5); Glucose 242 mg/dL (83-110); Potassium 4.8 mmol/L (3.5-5.1); Sodium 139 mmol/L (136-145)
[2024-11-13 20:03] LABS: INR-International Normal Ratio 1.2; Prothrombin Time 15.4 sec (12.0-14.7)
[2024-11-13 20:04] LABS: PTT 34.2 sec (22.9-36.1)
[2024-11-13 23:51] VITALS: BMI 30.1
[2024-11-14] MEDS ORDERED: Glucagon 1 MG/ML KIT IM PRN
[2024-11-14] MEDS ORDERED: Dextrose 50% Abboject 50 ML SYRINGE SLOW IVP PRN
[2024-11-14] MEDS: Acetaminophen 325 MG TAB PO PRN (00:34)
[2024-11-14] MEDS: Pregabalin 50 MG CAP PO SCH ×2 (01:00→20:57)
[2024-11-14 05:56] LABS: #Basophils 0.04 10x3/uL (0.0-0.2); #Eosinophils 0.11 10x3/uL (0.0-0.7); #Monocytes 0.71 10x3/uL (0.11-0.59); #Neutrophils 4.74 10x3/uL (1.40-6.50); %Basophils 0.5 % (0.0-1.0); %Eosinophils 1.4 % (0.0-10.0); %Lymphocytes 28.2 % (21.0-51.0); %Monocytes 9.1 % (0.0-10.0); %Neutrophils 60.4 % (42.0-75.0); Hematocrit 40.3 % (36.0-47.0); Hemoglobin 13.3 g/dL (12.0-16.0); Mean Corpuscular Hemoglobin 28.4 pg (27.0-31.0); Mean Corpuscular Volume 86.1 fL (78.0-98.0); Platelet Count 214 10x3/uL (130-400); Red Blood Cell (RBC) Count 4.68 mill/uL (4.20-5.40); White Blood Cell (WBC) Count 7.84 10x3/uL (4.8-10.8)
[2024-11-14 06:07] LABS: Anion Gap 16 mmol/L (10-20); BUN (Urea Nitrogen) 37 mg/dL (9.8-20.1); Calc. Creatinine Clearance 29 mL/min (70-130); Calcium 8.9 mg/dL (7.8-10.44); Carbon Dioxide 24 mmol/L (23-31); Chloride 105 mmol/L (98-107); Glucose 194 mg/dL (83-110); Potassium 3.6 mmol/L (3.5-5.1); Sodium 141 mmol/L (136-145)
[2024-11-14] MEDS: Pantoprazole 40 MG DR.TAB PO SCH (09:16)
[2024-11-14] MEDS: Senokot S 8.6-50 MG TAB PO SCH (09:16)
[2024-11-14] MEDS: Metoprolol Succinate XL 25 MG ER.TAB PO SCH (09:16)
[2024-11-14 14:54] LABS: CAUTI Indications for Culture Dysuria,urgency,freq; Glucose, Urine (Dipstick) Greater than 1000 mg/dL (Negative); Leukocyte 75 Leu/uL (Negative); Protein, Urine (Dipstick) Negative (Neg-Trace); RBC/HPF None Seen HPF (0-3); Specific Gravity, Urine 1.020 (1.002-1.036); WBC/HPF 21-50 HPF (0-3)
[2024-11-14 14:55] LABS: Bacteria/HPF 1+ HPF (None Seen)
[2024-11-14 14:56] LABS: Urine Culture Reflex Yes Yes
[2024-11-14] MEDS: HYDROcodone/Acetaminophen 5/325 mg Tablet PO PRN (17:26)
[2024-11-14] MEDS: Methocarbamol 500 MG TAB PO PRN (17:30)
[2024-11-14] MEDS: Insulin Glargine 30 UNITS/0.3 ML VIAL SC SCH (20:54)
[2024-11-14] MEDS ORDERED: Non-Formulary Item 1 EACH (Pregabalin [Lyrica] 200 MG Capsule) PO SCH (21:00)
[2024-11-14] MEDS: Ondansetron PF 4 MG/2 ML Vial IVP PRN (21:07)
[2024-11-15 05:34] LABS: #Basophils Less than 0.03 10x3/uL (0.0-0.2); #Eosinophils 0.10 10x3/uL (0.0-0.7); #Monocytes 0.56 10x3/uL (0.11-0.59); #Neutrophils 4.35 10x3/uL (1.40-6.50); %Basophils 0.3 % (0.0-1.0); %Eosinophils 1.5 % (0.0-10.0); %Lymphocytes 25.7 % (21.0-51.0); %Monocytes 8.2 % (0.0-10.0); %Neutrophils 63.9 % (42.0-75.0); Hematocrit 40.3 % (36.0-47.0); Hemoglobin 13.1 g/dL (12.0-16.0); Mean Corpuscular Hemoglobin 28.3 pg (27.0-31.0); Mean Corpuscular Volume 87.0 fL (78.0-98.0); Platelet Count 181 10x3/uL (130-400); Red Blood Cell (RBC) Count 4.63 mill/uL (4.20-5.40); White Blood Cell (WBC) Count 6.81 10x3/uL (4.8-10.8)
[2024-11-15 06:03] LABS: ALT (SGPT) 34 U/L (Less than 34); AST (SGOT) 29 U/L (11-34); Albumin 3.1 g/dL (3.1-4.5); Alkaline Phosphatase 116 U/L (40-110); Anion Gap 11 mmol/L (10-20); BUN (Urea Nitrogen) 35 mg/dL (9.8-20.1); Bilirubin, Total 0.5 mg/dL (0.3-1.2); Calc. Creatinine Clearance 32 mL/min (70-130); Calcium 8.9 mg/dL (7.8-10.44); Carbon Dioxide 25 mmol/L (23-31); Cardiac Risk 5.3 (Less than 4.5); Chloride 103 mmol/L (98-107); Cholesterol 159 mg/dl (< 200 Desired); Globulin 3.2 g/dL (2.4-3.5); Glucose 206 mg/dL (83-110); HDL Cholesterol 30 mg/dL (>60 Neg Risk); LDL Cholesterol, Calculated 87 mg/dL; Potassium 4.3 mmol/L (3.5-5.1); Sodium 135 mmol/L (136-145); Triglycerides 212 mg/dL (Less than 150)
[2024-11-15] MEDS: cefTRIAXone\\ROCEPHIN 1 GM in Sodium Chloride 0.9% 100 ML IVPB SCH (10:47)
[2024-11-15] MEDS ORDERED: fentaNYL PF 100 MCG/2 ML SYRINGE ONE (12:17)
[2024-11-15] MEDS ORDERED: PROPOFOL 20 ML ONE (12:17)
[2024-11-15] MEDS ORDERED: Lidocaine 1% PF 5 ML VIAL ONE (12:18)
[2024-11-15] MEDS ORDERED: Bupivacaine HCl 0.5%/Epinephrine 1:200,000/PF 30 ml Vial ONE (12:30)
[2024-11-15] MEDS ORDERED: Ondansetron PF 4 MG/2 ML Vial ONE (12:35)
[2024-11-15] MEDS ORDERED: Phenylephrine 40 MG/NS 250 ML 250 ML ONE (13:10)
[2024-11-15] MEDS ORDERED: Etomidate 40 MG (20 mL) VIAL ONE (13:11)
[2024-11-15] MEDS ORDERED: CEFAZOLIN 2 GM VIAL ONE (13:12)
[2024-11-15] MEDS ORDERED: Glycopyrrolate 0.2 MG/ML 5 ML SYRINGE ONE (14:21)
[2024-11-15] MEDS ORDERED: NEOSTIGMINE 3 MG/3 ML SYRINGE ONE (14:21)
[2024-11-15] MEDS ORDERED: Rocuronium Bromide 10 MG/ML (10ML VIAL) ONE (14:21)
[2024-11-16 05:34] LABS: #Basophils 0.05 10x3/uL (0.0-0.2); #Eosinophils 0.04 10x3/uL (0.0-0.7); #Monocytes 1.28 10x3/uL (0.11-0.59); #Neutrophils 7.14 10x3/uL (1.40-6.50); %Basophils 0.5 % (0.0-1.0); %Eosinophils 0.4 % (0.0-10.0); %Lymphocytes 10.0 % (21.0-51.0); %Monocytes 13.5 % (0.0-10.0); %Neutrophils 75.3 % (42.0-75.0); Hematocrit 38.0 % (36.0-47.0); Hemoglobin 12.0 g/dL (12.0-16.0); Mean Corpuscular Hemoglobin 28.2 pg (27.0-31.0); Mean Corpuscular Volume 89.4 fL (78.0-98.0); Platelet Count 166 10x3/uL (130-400); Red Blood Cell (RBC) Count 4.25 mill/uL (4.20-5.40); White Blood Cell (WBC) Count 9.49 10x3/uL (4.8-10.8)
[2024-11-16 05:44] LABS: Anion Gap 15 mmol/L (10-20); BUN (Urea Nitrogen) 33 mg/dL (9.8-20.1); Calc. Creatinine Clearance 35 mL/min (70-130); Calcium 8.7 mg/dL (7.8-10.44); Carbon Dioxide 22 mmol/L (23-31); Chloride 105 mmol/L (98-107); Glucose 215 mg/dL (83-110); Potassium 4.6 mmol/L (3.5-5.1); Sodium 137 mmol/L (136-145)
[2024-11-16] MEDS ORDERED: Non-Formulary Item 1 EACH (Cilostazol [Cilostazol] 50 MG Tablet) PO SCH (16:30)
[2024-11-16] MEDS: Apixaban 2.5 MG TAB PO SCH (21:02)
[2024-11-16] MEDS: Insulin Glargine 30 UNITS/0.3 ML VIAL SC SCH (21:02)
[2024-11-16] MEDS: Acetaminophen 325 MG TAB PO SCH (22:32)
[2024-11-17] MEDS ORDERED: HumaLOG 300 UNITS/3 ML VIAL SC PRN (08:22)
[2024-11-17] MEDS ORDERED: COLLAGEN HYDR PO SCH (09:00)
[2024-11-17] MEDS ORDERED: Lisinopril 20 MG TAB PO SCH (09:00)
[2024-11-17] MEDS ORDERED: ASCORBIC ACID PO SCH (09:00)
[2024-11-17] MEDS: Aspirin Chewable 81 MG TAB PO SCH (09:18)
[2024-11-17] MEDS: Multivitamin W/ Minerals 1 TAB PO SCH (09:18)
[2024-11-17] MEDS: CO Q-10 CAPSULE 50 MG PO SCH (10:09)
[2024-11-17] MEDS: HYDROcodone/Acetaminophen 5/325 mg Tablet PO PRN (11:05)
[2024-11-17] MEDS: CO Q-10 CAPSULE 100 MG PO SCH (11:05)
[2024-11-17] MEDS: Rosuvastatin 10 MG TAB PO SCH (21:11)
[2024-11-18 08:34] LABS: ALT (SGPT) 28 U/L (Less than 34); AST (SGOT) 34 U/L (11-34); Albumin 2.5 g/dL (3.1-4.5); Alkaline Phosphatase 149 U/L (40-110); Anion Gap 14 mmol/L (10-20); BUN (Urea Nitrogen) 25 mg/dL (9.8-20.1); Bilirubin, Total 0.4 mg/dL (0.3-1.2); Calc. Creatinine Clearance 46 mL/min (70-130); Calcium 9.0 mg/dL (7.8-10.44); Carbon Dioxide 21 mmol/L (23-31); Chloride 101 mmol/L (98-107); Globulin 3.6 g/dL (2.4-3.5); Glucose 182 mg/dL (83-110); Potassium 3.4 mmol/L (3.5-5.1); Sodium 133 mmol/L (136-145)
[2024-11-18] MEDS: CO Q-10 CAPSULE 100 MG PO SCH (09:03)
[2024-11-18] MEDS: Senokot S 8.6-50 MG TAB PO SCH (12:47)
[2024-11-20] MEDS: hydrALAZINE 20 MG/ML VIAL SLOW IVP PRN (03:31)
[2024-11-20 08:23] LABS: #Basophils 0.04 10x3/uL (0.0-0.2); #Eosinophils 0.21 10x3/uL (0.0-0.7); #Monocytes 0.64 10x3/uL (0.11-0.59); #Neutrophils 4.18 10x3/uL (1.40-6.50); %Basophils 0.6 % (0.0-1.0); %Eosinophils 3.3 % (0.0-10.0); %Lymphocytes 20.1 % (21.0-51.0); %Monocytes 10.0 % (0.0-10.0); %Neutrophils 65.5 % (42.0-75.0); Hematocrit 35.2 % (36.0-47.0); Hemoglobin 11.4 g/dL (12.0-16.0); Mean Corpuscular Hemoglobin 28.0 pg (27.0-31.0); Mean Corpuscular Volume 86.5 fL (78.0-98.0); Platelet Count 271 10x3/uL (130-400); Red Blood Cell (RBC) Count 4.07 mill/uL (4.20-5.40); White Blood Cell (WBC) Count 6.38 10x3/uL (4.8-10.8)
[2024-11-20 08:36] LABS: Anion Gap 12 mmol/L (10-20); BUN (Urea Nitrogen) 20 mg/dL (9.8-20.1); Calc. Creatinine Clearance 45 mL/min (70-130); Calcium 9.2 mg/dL (7.8-10.44); Carbon Dioxide 27 mmol/L (23-31); Chloride 103 mmol/L (98-107); Glucose 109 mg/dL (83-110); Potassium 3.6 mmol/L (3.5-5.1); Sodium 138 mmol/L (136-145)
[2024-11-20 17:54] VITALS: BP 145/69; TEMP 97.4
== END 2024-11-20 16:45 | DRG 515 ==
LOC: ERS 17:45 → SURG B 21:05
PROVIDERS: ADMIT Surgery; ATTEND Surgery
PROC: 0QSD04Z Reposition Right Patella with Internal Fixation Device, Open Approach (ICD-10-PCS; principal; 2024-11-15)
PROC: 3E03329 Introduction of Other Anti-infective into Peripheral Vein, Percutaneous Approach (ICD-10-PCS; 2024-11-15)
DX: S82.091A Other fracture of right patella, initial encounter for closed fracture (principal); J18.9 Pneumonia, unspecified organism; J96.01 Acute respiratory failure with hypoxia; N17.9 Acute kidney failure, unspecified; E87.1 Hypo-osmolality and hyponatremia; N39.0 Urinary tract infection, site not specified; Z88.2 Allergy status to sulfonamides; I25.10 Atherosclerotic heart disease of native coronary artery without angina pectoris; Z98.890 Other specified postprocedural states; I10 Essential (primary) hypertension; J44.9 Chronic obstructive pulmonary disease, unspecified; E11.9 Type 2 diabetes mellitus without complications; W19.XXXA Unspecified fall, initial encounter; E78.5 Hyperlipidemia, unspecified; I25.2 Old myocardial infarction; Z87.891 Personal history of nicotine dependence; N18.30 Chronic kidney disease, stage 3 unspecified; I48.0 Paroxysmal atrial fibrillation; Z79.899 Other long term (current) drug therapy
CPT/HCPCS: 36415; 36416; 70450; 71045; 71250; 72125; 72170; 80048; 80053; 80061; 83036; 84484; 85025; 85610; 85730; 86850; 86900; 86901; 87077; 87086; 87186; 93005; 93923; 94760; C1713; J0360; J0696; J1815; J2405; J2704; J7120

== ENCOUNTER 2025-03-09 01:55 | Inpatient (IN) | payer MEDICARE, OTHER ==
[2025-03-09 03:26] LABS: #Basophils 0.05 10x3/uL (0.0-0.2); #Eosinophils 0.22 10x3/uL (0.0-0.7); #Monocytes 0.55 10x3/uL (0.11-0.59); #Neutrophils 2.76 10x3/uL (1.40-6.50); %Basophils 0.9 % (0.0-1.0); %Eosinophils 3.9 % (0.0-10.0); %Lymphocytes 37.1 % (21.0-51.0); %Monocytes 9.7 % (0.0-10.0); %Neutrophils 48.4 % (42.0-75.0); Hematocrit 35.3 % (36.0-47.0); Hemoglobin 11.2 g/dL (12.0-16.0); Mean Corpuscular Hemoglobin 25.6 pg (27.0-31.0); Mean Corpuscular Volume 80.8 fL (78.0-98.0); Platelet Count 180 10x3/uL (130-400); Red Blood Cell (RBC) Count 4.37 mill/uL (4.20-5.40); White Blood Cell (WBC) Count 5.69 10x3/uL (4.8-10.8)
[2025-03-09 03:42] LABS: ALT (SGPT) 22 U/L (Less than 34); AST (SGOT) 32 U/L (11-34); Albumin 3.1 g/dL (3.1-4.5); Alkaline Phosphatase 91 U/L (40-110); Anion Gap 17 mmol/L (10-20); BUN (Urea Nitrogen) 53 mg/dL (9.8-20.1); Bilirubin, Total 0.3 mg/dL (0.3-1.2); Calc. Creatinine Clearance 0 mL/min (70-130); Calcium 8.3 mg/dL (7.8-10.44); Carbon Dioxide 30 mmol/L (23-31); Chloride 93 mmol/L (98-107); Globulin 2.9 g/dL (2.4-3.5); Glucose 286 mg/dL (83-110); Potassium 3.3 mmol/L (3.5-5.1); Sodium 137 mmol/L (136-145)
[2025-03-09 04:32] LABS: Bacteria/HPF 4+ HPF (None Seen); CAUTI Indications for Culture Dysuria,urgency,freq; Glucose, Urine (Dipstick) Greater than 1000 mg/dL (Negative); Leukocyte 500 Leu/uL (Negative); Protein, Urine (Dipstick) Negative (Neg-Trace); RBC/HPF 0-3 HPF (0-3); Specific Gravity, Urine 1.009 (1.002-1.036)
[2025-03-09 04:34] LABS: Urine Culture Reflex No No
[2025-03-09] MEDS ORDERED: Melatonin 3 MG TAB PO PRN (08:09)
[2025-03-09] MEDS ORDERED: Senokot S 8.6-50 MG TAB PO PRN (08:09)
[2025-03-09] MEDS ORDERED: Acetaminophen 325 MG TAB PO PRN (08:09)
[2025-03-09 08:27] VITALS: BMI 27.7
[2025-03-09] MEDS: cefTRIAXone\\ROCEPHIN 1 GM in Sodium Chloride 0.9% 100 ML IVPB SCH (09:13)
[2025-03-09] MEDS: Aspirin 81 mg Enteric Coated Tablet PO SCH (09:16)
[2025-03-09] MEDS ORDERED: Glucagon 1 MG/ML KIT IM PRN (09:57)
[2025-03-09] MEDS ORDERED: Dextrose 50% Abboject 50 ML SYRINGE SLOW IVP PRN (09:57)
[2025-03-09 10:03] LABS: Actual Bicarbonate (HCO3v) 30.2 mEq/L (22-28); Base Excess 4.1 mEq/L (-2.0 to +3.0); Calcium, Ionized (venous) 1.05 mmol/L (1.16-1.32); Chloride (VBG) 97 mmol/L (98-106); Hematocrit-VBG 38 % (36.0-47.0); Hemoglobin (Hb) 12.8 g/dL (11.7-16.1); Potassium (VBG) 3.66 mmol/L (3.70-5.30); Sodium 139 mmol/L (133-146)
[2025-03-09] MEDS: Azithromycin 500 MG in Sodium Chloride 0.9% 250 ML 250 ML IVPB SCH (14:18)
[2025-03-09] MEDS: PNEUMOC 20-VAL CONJ-DIP CRM/PF 0.5 ML SYRINGE IM ONE (14:19)
[2025-03-09] MEDS: predniSONE 20 MG TAB PO SCH (14:19)
[2025-03-09 15:35] LABS: Sodium, Urine 26.0 mmol/L (Not Available); Urea Nitrogen, Random Urine 227.0 mg/dl
[2025-03-09] MEDS ORDERED: Non-Formulary Item 1 EACH (Pravastatin Sodium [Pravastatin Sodium] 80 MG Tablet) PO SCH (21:00)
[2025-03-10 05:50] LABS: #Basophils Less than 0.03 10x3/uL (0.0-0.2); #Eosinophils Less than 0.03 10x3/uL (0.0-0.7); #Monocytes 0.21 10x3/uL (0.11-0.59); #Neutrophils 5.37 10x3/uL (1.40-6.50); %Basophils 0.2 % (0.0-1.0); %Eosinophils 0.0 % (0.0-10.0); %Lymphocytes 11.6 % (21.0-51.0); %Monocytes 3.3 % (0.0-10.0); %Neutrophils 84.4 % (42.0-75.0); Hematocrit 38.3 % (36.0-47.0); Hemoglobin 11.9 g/dL (12.0-16.0); Mean Corpuscular Hemoglobin 25.2 pg (27.0-31.0); Mean Corpuscular Volume 81.1 fL (78.0-98.0); Platelet Count 162 10x3/uL (130-400); Red Blood Cell (RBC) Count 4.72 mill/uL (4.20-5.40); White Blood Cell (WBC) Count 6.36 10x3/uL (4.8-10.8)
[2025-03-10 06:19] LABS: Anion Gap 15 mmol/L (10-20); BUN (Urea Nitrogen) 39 mg/dL (9.8-20.1); Calc. Creatinine Clearance 24 mL/min (70-130); Calcium 8.6 mg/dL (7.8-10.44); Carbon Dioxide 22 mmol/L (23-31); Chloride 107 mmol/L (98-107); Glucose 360 mg/dL (83-110); Potassium 4.3 mmol/L (3.5-5.1); Sodium 140 mmol/L (136-145)
[2025-03-10] MEDS ORDERED: Rosuvastatin 10 MG TAB PO SCH (09:00)
[2025-03-10] MEDS ORDERED: Non-Formulary Item 1 EACH (Insulin Glargine,Hum.Rec.Anlog [Toujeo Max Solostar] 300 UNIT/ SQ SCH (09:00)
[2025-03-10] MEDS: Multivit, Therapeutic 1 TAB PO SCH (09:18)
[2025-03-10] MEDS: predniSONE 20 MG TAB PO SCH (09:18)
[2025-03-10] MEDS: Metoprolol Succinate XL 25 MG ER.TAB PO SCH (09:18)
[2025-03-10] MEDS: Insulin Glargine 30 UNITS/0.3 ML VIAL SC SCH (09:19)
[2025-03-10] MEDS: Pregabalin 50 MG CAP PO SCH (09:19)
[2025-03-10] MEDS: Cyclobenzaprine 10 MG TAB PO SCH ×2 (12:09→15:45)
[2025-03-10] MEDS: Sodium Bicarbonate Tab 325 MG TAB PO SCH (15:46)
[2025-03-10] MEDS: Acetaminophen 325 MG TAB PO SCH (20:48)
[2025-03-10] MEDS: Apixaban 2.5 MG TAB PO SCH (20:49)
[2025-03-11 05:28] LABS: #Basophils 0.03 10x3/uL (0.0-0.2); #Eosinophils Less than 0.03 10x3/uL (0.0-0.7); #Monocytes 0.55 10x3/uL (0.11-0.59); #Neutrophils 7.90 10x3/uL (1.40-6.50); %Basophils 0.3 % (0.0-1.0); %Eosinophils 0.2 % (0.0-10.0); %Lymphocytes 14.9 % (21.0-51.0); %Monocytes 5.5 % (0.0-10.0); %Neutrophils 78.7 % (42.0-75.0); Hematocrit 38.6 % (36.0-47.0); Hemoglobin 12.1 g/dL (12.0-16.0); Mean Corpuscular Hemoglobin 25.5 pg (27.0-31.0); Mean Corpuscular Volume 81.3 fL (78.0-98.0); Platelet Count 176 10x3/uL (130-400); Red Blood Cell (RBC) Count 4.75 mill/uL (4.20-5.40); White Blood Cell (WBC) Count 10.03 10x3/uL (4.8-10.8)
[2025-03-11 05:52] LABS: Anion Gap 11 mmol/L (10-20); BUN (Urea Nitrogen) 34 mg/dL (9.8-20.1); Calc. Creatinine Clearance 29 mL/min (70-130); Calcium 8.8 mg/dL (7.8-10.44); Carbon Dioxide 26 mmol/L (23-31); Chloride 108 mmol/L (98-107); Glucose 242 mg/dL (83-110); Potassium 3.6 mmol/L (3.5-5.1); Sodium 141 mmol/L (136-145)
[2025-03-12 05:22] LABS: #Basophils Less than 0.03 10x3/uL (0.0-0.2); #Eosinophils Less than 0.03 10x3/uL (0.0-0.7); #Monocytes 0.57 10x3/uL (0.11-0.59); #Neutrophils 6.27 10x3/uL (1.40-6.50); %Basophils 0.2 % (0.0-1.0); %Eosinophils 0.2 % (0.0-10.0); %Lymphocytes 18.5 % (21.0-51.0); %Monocytes 6.7 % (0.0-10.0); %Neutrophils 74.0 % (42.0-75.0); Hematocrit 41.9 % (36.0-47.0); Hemoglobin 13.0 g/dL (12.0-16.0); Mean Corpuscular Hemoglobin 25.1 pg (27.0-31.0); Mean Corpuscular Volume 80.9 fL (78.0-98.0); Platelet Count 170 10x3/uL (130-400); Red Blood Cell (RBC) Count 5.18 mill/uL (4.20-5.40); White Blood Cell (WBC) Count 8.48 10x3/uL (4.8-10.8)
[2025-03-12 06:01] LABS: Anion Gap 11 mmol/L (10-20); BUN (Urea Nitrogen) 34 mg/dL (9.8-20.1); Calc. Creatinine Clearance 32 mL/min (70-130); Calcium 8.9 mg/dL (7.8-10.44); Carbon Dioxide 21 mmol/L (23-31); Chloride 107 mmol/L (98-107); Glucose 285 mg/dL (83-110); Potassium 3.4 mmol/L (3.5-5.1); Sodium 136 mmol/L (136-145)
[2025-03-12 07:54] LABS: Magnesium 1.9 mg/dL (1.6-2.6)
[2025-03-12] MEDS: Dapagliflozin Propanediol 10 MG TAB PO SCH (09:54)
[2025-03-12] MEDS: Spironolactone 25 MG TAB PO SCH (09:54)
[2025-03-12] MEDS: Insulin Glargine 30 UNITS/0.3 ML VIAL SC SCH (09:54)
[2025-03-12] MEDS: Potassium Bicarbonate/Cit Ac 20 MEQ TAB PO SCH (09:55)
[2025-03-12 12:10] VITALS: BP 168/94; TEMP 98
== END 2025-03-12 15:09 | disposition home or self-care (01) | DRG 682 ==
LOC: ERS 01:55 → ERHOLD 05:42 → OBS 07:36
PROVIDERS: ADMIT Internal Medicine; ATTEND Internal Medicine
DX: N17.9 Acute kidney failure, unspecified (principal); J96.01 Acute respiratory failure with hypoxia; J44.1 Chronic obstructive pulmonary disease with (acute) exacerbation; M50.022 Cervical disc disorder at C5-C6 level with myelopathy; I12.9 Hypertensive chronic kidney disease with stage 1 through stage 4 chronic kidney disease, or unspecified chronic kidney disease; E78.5 Hyperlipidemia, unspecified; I25.10 Atherosclerotic heart disease of native coronary artery without angina pectoris; Z95.5 Presence of coronary angioplasty implant and graft; E11.40 Type 2 diabetes mellitus with diabetic neuropathy, unspecified; N18.30 Chronic kidney disease, stage 3 unspecified; Z88.1 Allergy status to other antibiotic agents; Z79.4 Long term (current) use of insulin; Z90.49 Acquired absence of other specified parts of digestive tract; Z95.1 Presence of aortocoronary bypass graft; Z98.890 Other specified postprocedural states; Z87.891 Personal history of nicotine dependence; K21.9 Gastro-esophageal reflux disease without esophagitis; I25.2 Old myocardial infarction; E86.9 Volume depletion, unspecified; D63.1 Anemia in chronic kidney disease; M54.9 Dorsalgia, unspecified; E87.6 Hypokalemia; Z79.899 Other long term (current) drug therapy; Z79.01 Long term (current) use of anticoagulants; E11.22 Type 2 diabetes mellitus with diabetic chronic kidney disease; E11.51 Type 2 diabetes mellitus with diabetic peripheral angiopathy without gangrene; Z88.2 Allergy status to sulfonamides
CPT/HCPCS: 36415; 36416; 72141; 72146; 72148; 76770; 78580; 80048; 80053; 81001; 82040; 82550; 82570; 82805; 83605; 83735; 83880; 84145; 84300; 84484; 84540; 85025; 85379; 90471; 90677; 93005; 93306; 93970; 96360; A9540; G0009; J0456; J0696; J1815; J7030; J7050; J7512